=== PATIENT | female | born 1945 | race Caucasian/White ===

== ENCOUNTER 2017-09-23 12:15 | Emergency (ER) | payer MEDICARE, OTHER ==
[~2017-09-23] VITALS: Ht 167.6 cm; Wt 113.4 kg
[~2017-09-23 12:15] MED LIST: ACET500; ACETAMINOPHEN-1 EACH PO; ASCO500 PO; ASPI325 PO; ATEN50 PO; ATOR10 PO; Adult Low Dose81 MG PO; Bactrim Ds Tab1 EACH PO; CEPH500 PO; GABA100 PO; HYDCHL25 PO; IBUP800 PO; IRON150C PO; LIDO700A20 TOP; LOSA25 PO; MELATONIN10 M2 PO; MELO7.5 PO; METF500 PO; NAPR250 PO; Nitrostat0.4 MG SL; Norco 5-325 Ta1 EACH PO; OMEP20ER PO; OMEPRAZOLE MAGN20 MG PO; OXYACE5T PO; OXYC1TAB11 PO; Oxycodone-Apap1 EAC3 PO; PRAM.5 PO; PRAMIPEXOLE DIHY1 MG PO; Percocet 10-321 EACH PO; Percocet 5-3251 EACH PO; Prozac20 MG; Robaxin500 MG PO; SUCR1 PO; TRAM50 PO; UBID100 PO; VITAMIN B-125000 MCG SL; VITAMIN D35000 UNI1 PO; VITAMIN D5000 UNIT PO
[2017-10-01] MEDS ORDERED: CYAN500 (21:52)
[2018-06-19] MEDS ORDERED: ACET325 PO (10:08)
[2018-06-19] MEDS ORDERED: ALBU90OI INH (10:09)
[2018-06-19] MEDS ORDERED: LORA.5 PO (10:10)
[2018-06-19] MEDS ORDERED: Aspir 8181 MG PO (10:10)
[2018-06-19] MEDS ORDERED: ATOR80 PO (10:10)
[2018-06-19] MEDS ORDERED: NITR.4SL SL (10:12)
[2018-06-19] MEDS ORDERED: ONDA4ODT MM (10:13)
[2018-07-18] MEDS ORDERED: Norco 5-325 Ta1 EACH PO (20:01)
== END 2017-09-23 18:00 | disposition left against medical advice (07) ==
LOC: ER 12:15
DX: Z53.21 Procedure and treatment not carried out due to patient leaving prior to being seen by health care provider (principal)

== ENCOUNTER 2017-10-01 21:14 | Emergency (ER) | END 2017-10-02 00:51 | disposition home or self-care (01) ==

== ENCOUNTER 2017-11-01 15:34 | Emergency (ER) | payer MEDICARE, OTHER ==
[~2017-11-01] VITALS: Ht 167.6 cm; Wt 113.4 kg
[2017-11-01 16:40] LABS: BASOPHILS ABSOLUTE AUTO 0.02 K/mm3 (0.00-0.23); BASOPHILS PERCENT AUTO 0 % (0-2); EOSINOPHILS ABSOLUTE AUTO 0.09 K/mm3 (0.00-0.68); EOSINOPHILS PERCENT AUTO 1 % (0-6); Hematocrit 37.9 % (33.0-51.0); IMMATURE GRAN ABSOLUTE AUTO 0.03 K/mm3 (0.00-0.10); IMMATURE GRAN PERCENT AUTO 0 % (0-1); LYMPHOCYTES ABSOLUTE AUTO 1.19 K/mm3 (0.84-5.20); LYMPHOCYTES PERCENT AUTO 15 % (21-46); MONOCYTES ABSOLUTE AUTO 0.58 K/mm3 (0.16-1.47); MONOCYTES PERCENT AUTO 7 % (4-13); Mean Corpuscular HGB Conc 31.7 g/dL (31.5-36.5); Mean Corpuscular Volume 85 fL (80-100); Mean Platelet Volume 8.6 fL (9.1-12.4); NEUTROPHILS ABSOLUTE AUTO 6.23 K/mm3 (1.96-9.15); NEUTROPHILS PERCENT AUTO 77 % (41-73); Platelet Count 213 K/mm3 (150-400); RDW Coefficient Variation 14.8 % (11.7-14.2); RDW Standard Deviation 45.9 fL (35.1-46.3); Red Blood Cell Count 4.44 M/mm3 (3.80-5.20); White Blood Cell Count 8.14 K/mm3 (4.00-11.30)
[2017-11-01 16:53] LABS: International Normalized Ratio 0.98; Prothrombin Time Results 10.2 Sec (9.7-11.5)
[2017-11-01 16:59] LABS: Albumin, Blood 3.1 g/dL (3.4-5.0); Albumin/Globulin Ratio 0.8 (0.8-1.8); Bilirubin, Total 0.4 mg/dL (0.1-1.0); Bun/Creatinine Ratio 28.5 (12.0-20.0); Calcium, Blood 8.9 mg/dL (8.5-10.1); Creatinine, Blood 0.98 mg/dL (0.40-1.00); Globulin, Blood 3.7 g/dL (2.2-4.0); Potassium, Blood 4.5 mmol/L (3.5-5.5); Total Protein, Blood 6.8 g/dL (6.4-8.2)
[2018-06-19] MEDS ORDERED: ACET325 PO (10:08)
[2018-06-19] MEDS ORDERED: ALBU90OI INH (10:09)
[2018-06-19] MEDS ORDERED: Aspir 8181 MG PO (10:10)
[2018-06-19] MEDS ORDERED: ATOR80 PO (10:10)
[2018-06-19] MEDS ORDERED: LORA.5 PO (10:10)
[2018-06-19] MEDS ORDERED: NITR.4SL SL (10:12)
[2018-06-19] MEDS ORDERED: ONDA4ODT MM (10:13)
[2018-07-18] MEDS ORDERED: Norco 5-325 Ta1 EACH PO (20:01)
== END 2017-11-01 18:22 | disposition home or self-care (01) ==
LOC: ER 15:34
PROVIDERS: Emergency Medicine
DX: R51 Headache (principal); I10 Essential (primary) hypertension; E11.9 Type 2 diabetes mellitus without complications; Z88.8 Allergy status to other drugs, medicaments and biological substances; Z91.038 Other insect allergy status; Z79.84 Long term (current) use of oral hypoglycemic drugs; Z79.899 Other long term (current) drug therapy
CPT/HCPCS: 36415; 70450; 80053; 82947; 85025; 85610; 93005; 93010; 96374; 99284; J1885

== ENCOUNTER → 2017-11-01 | Outpatient (CLI) | payer MEDICARE, OTHER ==
[~2017-11-01] MED LIST changes: +CYAN500
[2017-11-01 19:15] LABS: Percent Saturation 8.5 % (15.0-50.0)
== END ==
LOC: LAB 15:30 → LAB SHORT 15:30
PROVIDERS: Internal Medicine Hematology & Oncology
DX: D50.9 Iron deficiency anemia, unspecified (principal)
CPT/HCPCS: 82728; 83540; 83550

== ENCOUNTER 2018-01-06 02:59 | Emergency (ER) | payer MEDICARE, OTHER ==
[~2018-01-06] VITALS: Ht 167.6 cm; Wt 113.4 kg
[2018-01-06] MEDS ORDERED: Prednisone20 MG PO (03:51)
[2018-01-06] MEDS ORDERED: CYCL10 PO (03:51)
[2018-01-06] MEDS ORDERED: Roxicodone5 MG PO (03:51)
== END 2018-01-06 04:30 | disposition home or self-care (01) ==
LOC: ER 02:59
DX: S16.1XXA Strain of muscle, fascia and tendon at neck level, initial encounter (principal); I10 Essential (primary) hypertension; E11.9 Type 2 diabetes mellitus without complications; Z88.8 Allergy status to other drugs, medicaments and biological substances; Z91.030 Bee allergy status; Z79.899 Other long term (current) drug therapy; Z79.84 Long term (current) use of oral hypoglycemic drugs; X58.XXXA Exposure to other specified factors, initial encounter
CPT/HCPCS: J1885; J3010

== ENCOUNTER 2018-04-29 20:51 | Emergency (ER) | payer MEDICARE, OTHER ==
[~2018-04-29] VITALS: Ht 167.6 cm; Wt 115.2 kg
[~2018-04-29 20:51] MED LIST changes: +CYCL10 PO; +Prednisone20 MG PO; +Roxicodone5 MG PO
[2018-04-29] MEDS ORDERED: PRAM.5 PO (22:48)
== END 2018-04-29 23:13 | disposition home or self-care (01) ==
LOC: ER 20:51
DX: Z76.0 Encounter for issue of repeat prescription (principal); G25.81 Restless legs syndrome; I10 Essential (primary) hypertension; E11.9 Type 2 diabetes mellitus without complications; Z88.8 Allergy status to other drugs, medicaments and biological substances; Z91.030 Bee allergy status; Z79.899 Other long term (current) drug therapy; Z79.84 Long term (current) use of oral hypoglycemic drugs
CPT/HCPCS: 99281

== ENCOUNTER 2018-07-26 10:43 | Emergency (ER) | payer MEDICARE, OTHER ==
[~2018-07-26] VITALS: Ht 167.6 cm; Wt 117.0 kg
[~2018-07-26 10:43] MED LIST changes: +ACET325 PO; +ALBU90OI INH; +ATOR80 PO; +Aspir 8181 MG PO; +LORA.5 PO; +NITR.4SL SL; +ONDA4ODT MM
[2018-07-26] MEDS ORDERED: Prozac20 MG (11:25)
[2018-07-26] MEDS ORDERED: ATOR40TA PO (11:26)
[2018-07-26] MEDS ORDERED: TRAM50 PO ×2 (11:26→12:35)
[2018-07-26] MEDS ORDERED: Amlodipine Bes2.5 MG PO (11:26)
[2018-07-26] MEDS ORDERED: LORA.5 PO (12:33)
[2018-07-26] MEDS ORDERED: PRED20 PO (12:34)
[2018-07-26] MEDS ORDERED: ONDA4ODT MM (12:34)
[2018-07-26] MEDS ORDERED: PRAM.5 PO (12:35)
== END 2018-07-26 12:42 | disposition home or self-care (01) ==
LOC: ER 10:43
DX: S09.90XA Unspecified injury of head, initial encounter (principal); S16.1XXA Strain of muscle, fascia and tendon at neck level, initial encounter; M25.511 Pain in right shoulder; I10 Essential (primary) hypertension; E11.9 Type 2 diabetes mellitus without complications; Z88.8 Allergy status to other drugs, medicaments and biological substances; Z91.030 Bee allergy status; Z79.899 Other long term (current) drug therapy; W18.30XA Fall on same level, unspecified, initial encounter
CPT/HCPCS: 70450; 72125; 73030; 99285-25; L0160

== ENCOUNTER 2018-09-26 13:40 | Emergency (ER) | payer MEDICARE, OTHER ==
[~2018-09-26] VITALS: Ht 167.6 cm; Wt 118.4 kg
[~2018-09-26 13:40] MED LIST changes: +ATOR40TA PO; +Amlodipine Bes2.5 MG PO; +PRED20 PO
[2018-09-26 14:12] LABS: BASOPHILS ABSOLUTE AUTO 0.04 K/mm3 (0.00-0.23); BASOPHILS PERCENT AUTO 1 % (0-2); EOSINOPHILS ABSOLUTE AUTO 0.12 K/mm3 (0.00-0.68); EOSINOPHILS PERCENT AUTO 2 % (0-6); Hematocrit 43.3 % (33.0-51.0); Hemoglobin 13.7 g/dL (11.5-16.0); IMMATURE GRAN ABSOLUTE AUTO 0.06 K/mm3 (0.00-0.10); IMMATURE GRAN PERCENT AUTO 1 % (0-1); LYMPHOCYTES ABSOLUTE AUTO 1.37 K/mm3 (0.84-5.20); LYMPHOCYTES PERCENT AUTO 19 % (21-46); MONOCYTES ABSOLUTE AUTO 0.36 K/mm3 (0.16-1.47); MONOCYTES PERCENT AUTO 5 % (4-13); Mean Corpuscular HGB 28.2 pg (26.0-34.0); Mean Corpuscular HGB Conc 31.6 g/dL (31.5-36.5); Mean Corpuscular Volume 89 fL (80-100); Mean Platelet Volume 8.9 fL (9.1-12.4); NEUTROPHILS ABSOLUTE AUTO 5.24 K/mm3 (1.96-9.15); NEUTROPHILS PERCENT AUTO 73 % (41-73); Platelet Count 273 K/mm3 (150-400); RDW Coefficient Variation 13.8 % (11.7-14.2); RDW Standard Deviation 44.8 fL (35.1-46.3); Red Blood Cell Count 4.86 M/mm3 (3.80-5.20); White Blood Cell Count 7.19 K/mm3 (4.00-11.30)
[2018-09-26 14:52] LABS: Alanine Aminotransfer (ALT/SGP 20 U/L (12-78); Albumin, Blood 3.7 g/dL (3.4-5.0); Alk Phos 120 U/L (50-136); Anion Gap 7 mmol/L (6-16); Aspartate Aminotrans (AST/SGOT 12 U/L (12-37); Bilirubin, Total 0.6 mg/dL (0.1-1.0); Blood Urea Nitrogen 23 mg/dL (8-24); Bun/Creatinine Ratio 21.1 (12.0-20.0); CO2, Blood 28 mmol/L (21-32); Chloride, Blood 106 mmol/L (98-108); Creatinine, Blood 1.09 mg/dL (0.40-1.00); Globulin, Blood 3.8 g/dL (2.2-4.0); Glomerular Filtration Rate 52 (60-); Glucose, Blood 162 mg/dL (70-99); Potassium, Blood 4.2 mmol/L (3.5-5.5); Sodium, Blood 141 mmol/L (136-145); Total Protein, Blood 7.5 g/dL (6.4-8.2); Troponin I <0.015 ng/mL (0.000-0.040)
== END 2018-09-26 18:55 | disposition home or self-care (01) ==
LOC: ER 13:40
PROVIDERS: Emergency Medicine
DX: R07.9 Chest pain, unspecified (principal); I10 Essential (primary) hypertension; E11.9 Type 2 diabetes mellitus without complications; Z88.8 Allergy status to other drugs, medicaments and biological substances; Z91.030 Bee allergy status; Z91.038 Other insect allergy status; Z79.899 Other long term (current) drug therapy; Z96.653 Presence of artificial knee joint, bilateral
CPT/HCPCS: 36415; 71046; 80053; 84484; 85025; 93005; 93010; 99285-25

== ENCOUNTER 2018-11-10 10:02 | Emergency (ER) | payer MEDICARE, OTHER ==
[~2018-11-10] VITALS: Ht 167.6 cm; Wt 117.5 kg
[2018-11-10 10:30] LABS: BASOPHILS ABSOLUTE AUTO 0.05 K/mm3 (0.00-0.23); BASOPHILS PERCENT AUTO 1 % (0-2); EOSINOPHILS PERCENT AUTO 2 % (0-6); Hematocrit 40.3 % (33.0-51.0); Hemoglobin 12.8 g/dL (11.5-16.0); IMMATURE GRAN PERCENT AUTO 2 % (0-1); LYMPHOCYTES PERCENT AUTO 19 % (21-46); MONOCYTES ABSOLUTE AUTO 0.44 K/mm3 (0.16-1.47); MONOCYTES PERCENT AUTO 7 % (4-13); Mean Corpuscular HGB 27.7 pg (26.0-34.0); Mean Corpuscular HGB Conc 31.8 g/dL (31.5-36.5); Mean Corpuscular Volume 87 fL (80-100); Mean Platelet Volume 9.1 fL (9.1-12.4); NEUTROPHILS ABSOLUTE AUTO 4.38 K/mm3 (1.96-9.15); NEUTROPHILS PERCENT AUTO 70 % (41-73); Platelet Count 220 K/mm3 (150-400); RDW Coefficient Variation 14.6 % (11.7-14.2); Red Blood Cell Count 4.62 M/mm3 (3.80-5.20); White Blood Cell Count 6.27 K/mm3 (4.00-11.30)
[2018-11-10] MEDS ORDERED: ERGO400 PO (10:31)
[2018-11-10] MEDS ORDERED: VITAMIN C500 M1 PO (10:32)
[2018-11-10] MEDS ORDERED: TUMS500 MG PO (10:32)
[2018-11-10 10:57] LABS: Alanine Aminotransfer (ALT/SGP 18 U/L (12-78); Albumin, Blood 3.8 g/dL (3.4-5.0); Albumin/Globulin Ratio 1.1 (0.8-1.8); Alk Phos 95 U/L (50-136); Anion Gap 6 mmol/L (6-16); Aspartate Aminotrans (AST/SGOT 8 U/L (12-37); Bilirubin, Total 0.5 mg/dL (0.1-1.0); Blood Urea Nitrogen 22 mg/dL (8-24); Bun/Creatinine Ratio 26.7 (12.0-20.0); CO2, Blood 28 mmol/L (21-32); Calcium, Blood 10.1 mg/dL (8.5-10.1); Chloride, Blood 108 mmol/L (98-108); Creatinine, Blood 0.83 mg/dL (0.40-1.00); Globulin, Blood 3.5 g/dL (2.2-4.0); Glomerular Filtration Rate >60 (60-); Glucose, Blood 134 mg/dL (70-99); Potassium, Blood 4.2 mmol/L (3.5-5.5); Sodium, Blood 142 mmol/L (136-145); Total Protein, Blood 7.3 g/dL (6.4-8.2); Troponin I <0.015 ng/mL (0.000-0.040)
== END 2018-11-10 11:40 | disposition home or self-care (01) ==
LOC: ER 10:02
PROVIDERS: Emergency Medicine
DX: R07.89 Other chest pain (principal); Z88.8 Allergy status to other drugs, medicaments and biological substances; Z91.030 Bee allergy status; Z79.899 Other long term (current) drug therapy; Z87.891 Personal history of nicotine dependence; Z79.52 Long term (current) use of systemic steroids; I10 Essential (primary) hypertension; E11.9 Type 2 diabetes mellitus without complications
CPT/HCPCS: 36415; 71046; 80053; 83880; 84484; 85025; 93005; 93010; 99285-25

== ENCOUNTER 2018-12-13 10:16 | Day surgery (SDC) | payer MEDICARE, OTHER ==
[~2018-12-13] VITALS: Ht 170.2 cm; Wt 117.7 kg
[~2018-12-13 10:16] MED LIST changes: +ERGO400 PO; +FLUOXETINE HCL60 MG PO; +TUMS500 MG PO; +VITAMIN C500 M1 PO
--- NOTE | 2018-12-13 13:21 | NUR ---
PT RETURN TO RECOVERY APPROX 10-15 MINUTES AGO. AWAKE, ALERT, CONVERSING WITH STAFF. NO SEDATION RECEIVED. PT DENIES PAIN OR DISCOMFORT. TR BAND IN PLACE TO RIGHT WRIST. CMS INTACT TO RIGHT HAND. NO BLEEDING OR SWELLING NOTED. PT CURRENTLY EATING LUNCH. AT BEDSIDE.
--- NOTE | 2018-12-13 13:59 | NUR ---
PT AMBULATED TO BATHROOM AND BACK WITHOUT DIFFICULTY. STEADY ON FEET. TR BAND REMAINS IN PLACE TO RIGHT WRIST. CMS INTACT TO HAND. NO BLEEDING/SWELLING NOTED.
--- NOTE | 2018-12-13 15:03 | NUR ---
ATTEMPTED TO DEFLATE TR BAND AT 2 HOUR ASAEL PER ORDERS. PT HAD IMMEDIATE BLEEDING. REINFLATED TO HEMOSTASIS. CMS INTACT TO HAND. WILL HOLD ON DEFLATION AT THIS TIME.
--- NOTE | 2018-12-13 15:48 | NUR ---
PT DRESSING AT THIS TIME. TR BAND REMAINS INFLATED AND IN PLACE FOR SECURITY. PT HAS AMBULATED AROUND DEPARTMENT WITHOUT DIFFICULTY. EATING/DRINKING WITHOUT DIFFICULTY. REVIEWED DISCHARGE INSTRUCTIONS WITH PATIENT AND - BOTH OF WHOM ARE ABLE TO REPEAT BACK PERTINENT POINTS AND VERBALIZE UNDERSTANDING. AWAITING 1600 TO ATTEMPT TR BAND DEFLATION ONCE MORE.
--- NOTE | 2018-12-14 10:23 | NUR ---
LATE ENTRY: TR BAND WAS DEFLATED SUCCESSFULLY PER POLICY STARTING AT 1600 ON 12/13/2018. NO FURTHER BLEEDING OR SWELLING WERE NOTED. CMS TO HAND REMAINED INTACT AND WNL. DOT DRESSING APPLIED AND ARM BOARD REPLACED FOR SECURITY. CMS REMAINED UNCHANGED. PT'S PRESENT TO DRIVE HER HOME. IV D/C TIP INTACT AND PATIENT DC HOME AT APPROX 1645.
== END 2018-12-13 18:00 | disposition home or self-care (01) ==
LOC: MHTC 10:16
DX: R07.89 Other chest pain (principal); R94.30 Abnormal result of cardiovascular function study, unspecified; R10.11 Right upper quadrant pain; I25.10 Atherosclerotic heart disease of native coronary artery without angina pectoris; Z88.8 Allergy status to other drugs, medicaments and biological substances; Z79.899 Other long term (current) drug therapy
CPT/HCPCS: 93454; C1769; C1894; J1644; J2250; J3010; J7030; Q9967

== ENCOUNTER 2019-01-31 19:32 | Emergency (ER) | payer MEDICARE, OTHER ==
[~2019-01-31] VITALS: Ht 167.6 cm; Wt 117.9 kg
[~2019-01-31 19:32] MED LIST changes: -CYAN500; +CYAN500 PO; -OMEPRAZOLE MAGN20 MG PO; +OMEPRAZOLE20 MG PO
[2019-01-31 19:47] LABS: BASOPHILS ABSOLUTE AUTO 0.02 K/mm3 (0.00-0.23); BASOPHILS PERCENT AUTO 0 % (0-2); EOSINOPHILS ABSOLUTE AUTO 0.01 K/mm3 (0.00-0.68); EOSINOPHILS PERCENT AUTO 0 % (0-6); Hematocrit 37.1 % (33.0-51.0); Hemoglobin 11.6 g/dL (11.5-16.0); IMMATURE GRAN ABSOLUTE AUTO 0.36 K/mm3 (0.00-0.10); IMMATURE GRAN PERCENT AUTO 3 % (0-1); LYMPHOCYTES ABSOLUTE AUTO 0.46 K/mm3 (0.84-5.20); LYMPHOCYTES PERCENT AUTO 4 % (21-46); MONOCYTES ABSOLUTE AUTO 0.18 K/mm3 (0.16-1.47); MONOCYTES PERCENT AUTO 2 % (4-13); Mean Corpuscular HGB 28.2 pg (26.0-34.0); Mean Corpuscular HGB Conc 31.3 g/dL (31.5-36.5); Mean Corpuscular Volume 90 fL (80-100); Mean Platelet Volume 8.9 fL (9.1-12.4); NEUTROPHILS ABSOLUTE AUTO 10.04 K/mm3 (1.96-9.15); NEUTROPHILS PERCENT AUTO 91 % (41-73); Platelet Count 199 K/mm3 (150-400); RDW Coefficient Variation 15.2 % (11.7-14.2); RDW Standard Deviation 50.5 fL (35.1-46.3); Red Blood Cell Count 4.11 M/mm3 (3.80-5.20); White Blood Cell Count 11.07 K/mm3 (4.00-11.30)
[2019-01-31] MEDS ORDERED: TRAZ100 PO (19:57)
[2019-01-31 20:09] LABS: Alanine Aminotransfer (ALT/SGP 26 U/L (12-78); Albumin, Blood 3.3 g/dL (3.4-5.0); Albumin/Globulin Ratio 1.1 (0.8-1.8); Alk Phos 118 U/L (50-136); Anion Gap 10 mmol/L (6-16); Aspartate Aminotrans (AST/SGOT 13 U/L (12-37); Bilirubin, Total 0.3 mg/dL (0.1-1.0); Blood Urea Nitrogen 34 mg/dL (8-24); Bun/Creatinine Ratio 34.1 (12.0-20.0); CO2, Blood 23 mmol/L (21-32); Calcium, Blood 8.8 mg/dL (8.5-10.1); Chloride, Blood 105 mmol/L (98-108); Glomerular Filtration Rate 58 (60-); Glucose, Blood 353 mg/dL (70-99); Potassium, Blood 4.5 mmol/L (3.5-5.5); Sodium, Blood 138 mmol/L (136-145); Total Protein, Blood 6.3 g/dL (6.4-8.2); Troponin I <0.015 ng/mL (0.000-0.040)
[2019-01-31] MEDS ORDERED: Percocet 5-3251 EACH PO (20:42)
[2019-01-31] MEDS ORDERED: Xanax0.25 MG PO (20:42)
== END 2019-01-31 20:58 | disposition home or self-care (01) ==
LOC: ER 19:32
PROVIDERS: Emergency Medicine
DX: R06.02 Shortness of breath (principal); T38.0X5A Adverse effect of glucocorticoids and synthetic analogues, initial encounter; E11.65 Type 2 diabetes mellitus with hyperglycemia; F41.9 Anxiety disorder, unspecified; F43.9 Reaction to severe stress, unspecified; I10 Essential (primary) hypertension; K21.9 Gastro-esophageal reflux disease without esophagitis
CPT/HCPCS: 71045; 80053; 82947; 83880; 84484; 85025; 85379; 93005; 93010; 96374; 99284-25; A9270; J2060

== ENCOUNTER 2019-03-11 15:50 | Emergency (ER) | payer MEDICARE, OTHER ==
[~2019-03-11] VITALS: Ht 167.6 cm; Wt 117.9 kg
[~2019-03-11 15:50] MED LIST changes: +TRAZ100 PO; +Xanax0.25 MG PO
[2019-03-11 16:43] LABS: BASOPHILS ABSOLUTE AUTO 0.03 K/mm3 (0.00-0.23); BASOPHILS PERCENT AUTO 1 % (0-2); EOSINOPHILS ABSOLUTE AUTO 0.14 K/mm3 (0.00-0.68); EOSINOPHILS PERCENT AUTO 2 % (0-6); Hematocrit 37.2 % (33.0-51.0); Hemoglobin 11.5 g/dL (11.5-16.0); IMMATURE GRAN ABSOLUTE AUTO 0.13 K/mm3 (0.00-0.10); IMMATURE GRAN PERCENT AUTO 2 % (0-1); LYMPHOCYTES ABSOLUTE AUTO 0.91 K/mm3 (0.84-5.20); LYMPHOCYTES PERCENT AUTO 15 % (21-46); MONOCYTES ABSOLUTE AUTO 0.48 K/mm3 (0.16-1.47); MONOCYTES PERCENT AUTO 8 % (4-13); Mean Corpuscular HGB 29.1 pg (26.0-34.0); Mean Corpuscular HGB Conc 30.9 g/dL (31.5-36.5); Mean Corpuscular Volume 94 fL (80-100); NEUTROPHILS ABSOLUTE AUTO 4.49 K/mm3 (1.96-9.15); NEUTROPHILS PERCENT AUTO 73 % (41-73); Platelet Count 192 K/mm3 (150-400); RDW Coefficient Variation 14.3 % (11.7-14.2); RDW Standard Deviation 49.3 fL (35.1-46.3); Red Blood Cell Count 3.95 M/mm3 (3.80-5.20); White Blood Cell Count 6.18 K/mm3 (4.00-11.30)
[2019-03-11 17:00] LABS: Albumin, Blood 3.2 g/dL (3.4-5.0); Bilirubin, Total 0.4 mg/dL (0.1-1.0); Bun/Creatinine Ratio 22.8 (12.0-20.0); Creatinine, Blood 1.27 mg/dL (0.40-1.00); Globulin, Blood 3.3 g/dL (2.2-4.0); Potassium, Blood 4.2 mmol/L (3.5-5.5); Total Protein, Blood 6.5 g/dL (6.4-8.2)
[2019-03-11] MEDS ORDERED: ATHLETE'S FOO35.4 GM TOP (17:19)
[2019-03-11] MEDS ORDERED: CEPH500 PO (17:19)
== END 2019-03-11 18:15 | disposition home or self-care (01) ==
LOC: ER 15:50
PROVIDERS: Physician Assistant
DX: B35.3 Tinea pedis (principal); Z88.8 Allergy status to other drugs, medicaments and biological substances; Z91.013 Allergy to seafood; Z79.899 Other long term (current) drug therapy; Z79.891 Long term (current) use of opiate analgesic; I10 Essential (primary) hypertension; E11.9 Type 2 diabetes mellitus without complications
CPT/HCPCS: 36415; 73630; 80053; 85025; 99283-25

== ENCOUNTER 2019-04-03 17:57 | Emergency (ER) | payer MEDICARE, OTHER ==
[~2019-04-03] VITALS: Ht 167.6 cm; Wt 118.4 kg
[~2019-04-03 17:57] MED LIST changes: +ATHLETE'S FOO35.4 GM TOP
[2019-04-03 18:34] LABS: BASOPHILS ABSOLUTE AUTO 0.04 K/mm3 (0.00-0.23); BASOPHILS PERCENT AUTO 1 % (0-2); EOSINOPHILS ABSOLUTE AUTO 0.14 K/mm3 (0.00-0.68); EOSINOPHILS PERCENT AUTO 2 % (0-6); Hematocrit 34.5 % (33.0-51.0); IMMATURE GRAN ABSOLUTE AUTO 0.14 K/mm3 (0.00-0.10); IMMATURE GRAN PERCENT AUTO 2 % (0-1); LYMPHOCYTES PERCENT AUTO 21 % (21-46); MONOCYTES ABSOLUTE AUTO 0.35 K/mm3 (0.16-1.47); MONOCYTES PERCENT AUTO 5 % (4-13); Mean Corpuscular HGB 28.7 pg (26.0-34.0); Mean Corpuscular HGB Conc 31.9 g/dL (31.5-36.5); Mean Corpuscular Volume 90 fL (80-100); NEUTROPHILS ABSOLUTE AUTO 4.66 K/mm3 (1.96-9.15); NEUTROPHILS PERCENT AUTO 69 % (41-73); Platelet Count 234 K/mm3 (150-400); RDW Standard Deviation 45.7 fL (35.1-46.3); Red Blood Cell Count 3.83 M/mm3 (3.80-5.20); White Blood Cell Count 6.73 K/mm3 (4.00-11.30)
[2019-04-03] MEDS ORDERED: ASPI325 PO (18:34)
[2019-04-03 18:45] LABS: Alanine Aminotransfer (ALT/SGP 18 U/L (12-78); Albumin, Blood 3.3 g/dL (3.4-5.0); Alk Phos 78 U/L (50-136); Anion Gap 5 mmol/L (6-16); Aspartate Aminotrans (AST/SGOT 13 U/L (12-37); Bilirubin, Total 0.3 mg/dL (0.1-1.0); Blood Urea Nitrogen 25 mg/dL (8-24); Bun/Creatinine Ratio 27.7 (12.0-20.0); CO2, Blood 29 mmol/L (21-32); Calcium, Blood 9.1 mg/dL (8.5-10.1); Chloride, Blood 107 mmol/L (98-108); Globulin, Blood 3.3 g/dL (2.2-4.0); Glomerular Filtration Rate >60 (60-); Glucose, Blood 206 mg/dL (70-99); Potassium, Blood 3.5 mmol/L (3.5-5.5); Sodium, Blood 141 mmol/L (136-145); Total Protein, Blood 6.6 g/dL (6.4-8.2); Troponin I <0.015 ng/mL (0.000-0.040)
== END 2019-04-03 22:14 | disposition home or self-care (01) ==
LOC: ER 17:57
PROVIDERS: Physician Assistant
DX: R25.1 Tremor, unspecified (principal); M79.601 Pain in right arm; M79.602 Pain in left arm; E11.9 Type 2 diabetes mellitus without complications; Z88.8 Allergy status to other drugs, medicaments and biological substances; Z91.030 Bee allergy status; Z79.899 Other long term (current) drug therapy; Z79.891 Long term (current) use of opiate analgesic; Z79.82 Long term (current) use of aspirin; I10 Essential (primary) hypertension
CPT/HCPCS: 71046; 80053; 82947; 84484; 85025; 93005; 93010; 96374; 99284-25; J1885

== ENCOUNTER 2019-05-01 15:48 | Observation (INO) | payer MEDICARE, OTHER ==
[~2019-05-01] VITALS: Ht 167.6 cm; Wt 119.9 kg
[2019-05-01 17:19] LABS: BASOPHILS ABSOLUTE AUTO 0.04 K/mm3 (0.00-0.23); BASOPHILS PERCENT AUTO 1 % (0-2); EOSINOPHILS ABSOLUTE AUTO 0.13 K/mm3 (0.00-0.68); EOSINOPHILS PERCENT AUTO 2 % (0-6); Hematocrit 38.8 % (33.0-51.0); Hemoglobin 12.2 g/dL (11.5-16.0); IMMATURE GRAN ABSOLUTE AUTO 0.08 K/mm3 (0.00-0.10); IMMATURE GRAN PERCENT AUTO 1 % (0-1); LYMPHOCYTES ABSOLUTE AUTO 1.23 K/mm3 (0.84-5.20); LYMPHOCYTES PERCENT AUTO 17 % (21-46); MONOCYTES ABSOLUTE AUTO 0.39 K/mm3 (0.16-1.47); MONOCYTES PERCENT AUTO 6 % (4-13); Mean Corpuscular HGB 28.8 pg (26.0-34.0); Mean Corpuscular HGB Conc 31.4 g/dL (31.5-36.5); Mean Corpuscular Volume 92 fL (80-100); Mean Platelet Volume 8.8 fL (9.1-12.4); NEUTROPHILS ABSOLUTE AUTO 5.23 K/mm3 (1.96-9.15); NEUTROPHILS PERCENT AUTO 74 % (41-73); Platelet Count 263 K/mm3 (150-400); RDW Coefficient Variation 13.9 % (11.7-14.2); RDW Standard Deviation 46.5 fL (35.1-46.3); Red Blood Cell Count 4.23 M/mm3 (3.80-5.20)
[2019-05-01 17:53] LABS: Albumin, Blood 3.7 g/dL (3.4-5.0); Bilirubin, Total 0.3 mg/dL (0.1-1.0); Bun/Creatinine Ratio 22.8 (12.0-20.0); Calcium, Blood 9.3 mg/dL (8.5-10.1); Creatinine, Blood 1.01 mg/dL (0.40-1.00); Globulin, Blood 3.6 g/dL (2.2-4.0); Potassium, Blood 3.8 mmol/L (3.5-5.5); Total Protein, Blood 7.3 g/dL (6.4-8.2)
[2019-05-01] MEDS ORDERED: VITAMIN D5000 UNI1 PO (20:28)
[2019-05-01] MEDS ORDERED: LOSA50 PO (20:28)
[2019-05-01] MEDS ORDERED: BASAGLAR K100 UNIT/1 SC (20:33)
[2019-05-01] MEDS ORDERED: HYDCHL25 PO (20:33)
[2019-05-01] MEDS ORDERED: Mirapex1 MG PO (20:34)
[2019-05-01] MEDS ORDERED: ASCO500 PO (20:34)
[2019-05-02 02:53] LABS: Source, Urine Clean Catch
[2019-05-02 02:55] LABS: Bilirubin, Urine Neg (Neg); Blood, Urine Neg (Neg); Glucose Qualitative, Urine Neg (Neg); Ketones, Urine Neg (Neg); Leukocyte Esterase, Urine Neg (Neg); Nitrite, Urine Neg (Neg); Protein, Urine Neg (Neg); Specific Gravity, Urine 1.015 (1.003-1.022); Urobilinogen, Urine NORM (Normal)
[2019-05-02 03:03] LABS: Appearance, Urine Clear (Clear); Color, Urine Yellow (P-Yellow)
--- NOTE | 2019-05-02 05:06 | NUR ---
SHIFT SUMMARY: Admitted to medical floor at about 2255. T/F from w/c to bed with SBA. Pt reached down to grab right pant leg to manually adduct righ LE during t/f. A/O. BP initially 172/74. 137/59 upon recheck. C/O GUADALUPE 04/17. PRN tylenol order obtained and administered with little improvement in GUADALUPE. Pt slept intermittently during the night stating that her GUADALUPE was keeping her awake. She refused offers for non-analgesic pain relief. Stated pain was tolerable enough to wait until AM to pursue additional pain management. Slight tremoring observed in bilateral hands. Neuro check WNL. MRI screening form completed and faxed. UA collected and sent to lab. Tele monitor in place- NSR. Call light within reach.
[2019-05-02 05:56] LABS: Hematocrit 35.7 % (33.0-51.0); Hemoglobin 11.1 g/dL (11.5-16.0); Mean Corpuscular HGB 27.8 pg (26.0-34.0); Mean Corpuscular HGB Conc 31.1 g/dL (31.5-36.5); Mean Corpuscular Volume 90 fL (80-100); Platelet Count 236 K/mm3 (150-400); RDW Coefficient Variation 13.8 % (11.7-14.2); RDW Standard Deviation 45.3 fL (35.1-46.3); Red Blood Cell Count 3.99 M/mm3 (3.80-5.20); White Blood Cell Count 7.14 K/mm3 (4.00-11.30)
[2019-05-02 06:15] LABS: Albumin, Blood 3.1 g/dL (3.4-5.0); Albumin/Globulin Ratio 0.9 (0.8-1.8); Bilirubin, Total 0.3 mg/dL (0.1-1.0); Bun/Creatinine Ratio 24.3 (12.0-20.0); Calcium, Blood 8.9 mg/dL (8.5-10.1); Creatinine, Blood 0.99 mg/dL (0.40-1.00); Globulin, Blood 3.4 g/dL (2.2-4.0); Potassium, Blood 3.8 mmol/L (3.5-5.5); Total Protein, Blood 6.5 g/dL (6.4-8.2)
--- NOTE | 2019-05-02 10:19 | NUR ---
ECHOCARDIOGRAM COMPLETED
[2019-05-02] MEDS ORDERED: ATOR80 PO (17:48)
[2019-05-02] MEDS ORDERED: CLOP75 PO (17:49)
--- NOTE | 2019-05-02 18:27 | NUR ---
DISCHARGE DISCHARGE MEDICATIONS AND INSTRUCTIONS EXPLAINED TO PATIENT AND PATIENT'S . THEY STATED UNDERSTANDING. FOLLOW UP APPOINTMENTS WITH PCP, DR. SARGENT, AND OT/PT TO BE SCHEDULED BY CARE MANAGEMENT AND CALLED TO PATIENT AT HOME. IV REMOVED WITHOUT DIFFICULTY. BELONGINGS WITH PATIENT. PATIENT TRANSFERED TO PRIVATE VEHICLE VIA WHEELCHAIR.
== END 2019-05-02 18:25 | disposition home or self-care (01) ==
LOC: ER 15:48 → MEDS 15:49 → ER 21:41 → MEDS 21:41 → ENPENDDIS 05-02 16:55 → MEDS 05-02 18:25
PROVIDERS: Physician Assistant; ADMIT Internal Medicine
DX: R29.898 Other symptoms and signs involving the musculoskeletal system (principal); R51 Headache; G25.81 Restless legs syndrome; I25.10 Atherosclerotic heart disease of native coronary artery without angina pectoris; I10 Essential (primary) hypertension; E11.9 Type 2 diabetes mellitus without complications; K21.9 Gastro-esophageal reflux disease without esophagitis; F32.9 Major depressive disorder, single episode, unspecified; E66.9 Obesity, unspecified; Z68.41 Body mass index [BMI] 40.0-44.9, adult; Z79.899 Other long term (current) drug therapy; Z79.82 Long term (current) use of aspirin; Z79.4 Long term (current) use of insulin; Z91.038 Other insect allergy status; Z88.8 Allergy status to other drugs, medicaments and biological substances; Z86.73 Personal history of transient ischemic attack (TIA), and cerebral infarction without residual deficits
CPT/HCPCS: 36415; 70450; 70551; 71045; 80053; 81003; 82947; 85025; 85027; 93005; 93010; 93306; 93880; 96372; 96374; 97162; 97165; 97530; 99285-25; A9270; G0378; J1650; J2060; J7030

== ENCOUNTER 2019-05-12 10:09 | Emergency (ER) | payer MEDICARE, OTHER ==
[~2019-05-12] VITALS: Ht 167.6 cm; Wt 117.9 kg
[~2019-05-12 10:09] MED LIST changes: +BASAGLAR K100 UNIT/1 SC; +CLOP75 PO; +LOSA50 PO; +Mirapex1 MG PO; +VITAMIN D5000 UNI1 PO
[2019-05-12 10:26] LABS: BASOPHILS ABSOLUTE AUTO 0.04 K/mm3 (0.00-0.23); BASOPHILS PERCENT AUTO 1 % (0-2); EOSINOPHILS ABSOLUTE AUTO 0.13 K/mm3 (0.00-0.68); EOSINOPHILS PERCENT AUTO 2 % (0-6); Hematocrit 37.2 % (33.0-51.0); Hemoglobin 11.9 g/dL (11.5-16.0); IMMATURE GRAN ABSOLUTE AUTO 0.06 K/mm3 (0.00-0.10); IMMATURE GRAN PERCENT AUTO 1 % (0-1); LYMPHOCYTES ABSOLUTE AUTO 1.13 K/mm3 (0.84-5.20); LYMPHOCYTES PERCENT AUTO 19 % (21-46); MONOCYTES PERCENT AUTO 7 % (4-13); Mean Corpuscular HGB 28.2 pg (26.0-34.0); Mean Corpuscular Volume 88 fL (80-100); Mean Platelet Volume 8.7 fL (9.1-12.4); NEUTROPHILS ABSOLUTE AUTO 4.34 K/mm3 (1.96-9.15); NEUTROPHILS PERCENT AUTO 71 % (41-73); Platelet Count 229 K/mm3 (150-400); RDW Coefficient Variation 13.8 % (11.7-14.2); RDW Standard Deviation 44.9 fL (35.1-46.3); Red Blood Cell Count 4.22 M/mm3 (3.80-5.20)
[2019-05-12] MEDS ORDERED: ACET500 PO (10:48)
[2019-05-12] MEDS ORDERED: METO50ER PO (10:51)
[2019-05-12 10:53] LABS: Albumin, Blood 3.6 g/dL (3.4-5.0); Bilirubin, Total 0.4 mg/dL (0.1-1.0); Bun/Creatinine Ratio 27.1 (12.0-20.0); Calcium, Blood 9.4 mg/dL (8.5-10.1); Creatinine, Blood 1.07 mg/dL (0.40-1.00); Globulin, Blood 3.5 g/dL (2.2-4.0); Potassium, Blood 4.1 mmol/L (3.5-5.5); Total Protein, Blood 7.1 g/dL (6.4-8.2)
== END 2019-05-12 11:56 | disposition home or self-care (01) ==
LOC: ER 10:09
PROVIDERS: Emergency Medicine
DX: R25.1 Tremor, unspecified (principal); I10 Essential (primary) hypertension; E11.9 Type 2 diabetes mellitus without complications; Z88.8 Allergy status to other drugs, medicaments and biological substances; Z91.030 Bee allergy status; Z79.899 Other long term (current) drug therapy; Z79.891 Long term (current) use of opiate analgesic; Z79.4 Long term (current) use of insulin; Z79.02 Long term (current) use of antithrombotics/antiplatelets
CPT/HCPCS: 70450; 80053; 85025; 93005; 93010; 96374; 99284-25; J2060

== ENCOUNTER 2019-08-09 13:23 | Emergency (ER) | payer MEDICARE, OTHER ==
[~2019-08-09] VITALS: Ht 167.6 cm; Wt 117.9 kg
[~2019-08-09 13:23] MED LIST changes: +ACET500 PO; +METO50ER PO
[2019-08-09 15:19] LABS: BASOPHILS ABSOLUTE AUTO 0.04 K/mm3 (0.00-0.23); BASOPHILS PERCENT AUTO 1 % (0-2); EOSINOPHILS ABSOLUTE AUTO 0.12 K/mm3 (0.00-0.68); EOSINOPHILS PERCENT AUTO 2 % (0-6); Hematocrit 37.7 % (33.0-51.0); Hemoglobin 11.9 g/dL (11.5-16.0); IMMATURE GRAN ABSOLUTE AUTO 0.04 K/mm3 (0.00-0.10); IMMATURE GRAN PERCENT AUTO 1 % (0-1); LYMPHOCYTES ABSOLUTE AUTO 1.13 K/mm3 (0.84-5.20); LYMPHOCYTES PERCENT AUTO 20 % (21-46); MONOCYTES ABSOLUTE AUTO 0.36 K/mm3 (0.16-1.47); MONOCYTES PERCENT AUTO 6 % (4-13); Mean Corpuscular HGB 27.5 pg (26.0-34.0); Mean Corpuscular HGB Conc 31.6 g/dL (31.5-36.5); Mean Corpuscular Volume 87 fL (80-100); Mean Platelet Volume 8.9 fL (9.1-12.4); NEUTROPHILS ABSOLUTE AUTO 4.04 K/mm3 (1.96-9.15); NEUTROPHILS PERCENT AUTO 71 % (41-73); Platelet Count 229 K/mm3 (150-400); RDW Coefficient Variation 14.6 % (11.7-14.2); RDW Standard Deviation 46.5 fL (35.1-46.3); Red Blood Cell Count 4.32 M/mm3 (3.80-5.20); White Blood Cell Count 5.73 K/mm3 (4.00-11.30)
[2019-08-09 15:52] LABS: Albumin, Blood 3.4 g/dL (3.4-5.0); Bilirubin, Total 0.3 mg/dL (0.1-1.0); Bun/Creatinine Ratio 30.3 (12.0-20.0); Calcium, Blood 9.2 mg/dL (8.5-10.1); Creatinine, Blood 1.09 mg/dL (0.40-1.00); Globulin, Blood 3.3 g/dL (2.2-4.0); Potassium, Blood 4.1 mmol/L (3.5-5.5); Total Protein, Blood 6.7 g/dL (6.4-8.2)
== END 2019-08-09 17:18 | disposition home or self-care (01) ==
LOC: ER 13:23
PROVIDERS: Physician Assistant
DX: R51 Headache (principal); I10 Essential (primary) hypertension; E11.9 Type 2 diabetes mellitus without complications; Z88.8 Allergy status to other drugs, medicaments and biological substances; Z91.030 Bee allergy status; Z79.4 Long term (current) use of insulin; Z79.899 Other long term (current) drug therapy
CPT/HCPCS: 36415; 70450; 72125; 80053; 85025; 96374; 96375; 99284-25; A9270-GY; J1170; J2405

== ENCOUNTER 2019-10-10 18:32 | Emergency (ER) | payer MEDICARE, OTHER ==
[~2019-10-10] VITALS: Ht 167.6 cm; Wt 120.2 kg
== END 2019-10-10 20:58 | disposition home or self-care (01) ==
LOC: ER 18:32
DX: S00.03XA Contusion of scalp, initial encounter (principal); I10 Essential (primary) hypertension; E11.9 Type 2 diabetes mellitus without complications; Z88.8 Allergy status to other drugs, medicaments and biological substances; Z91.030 Bee allergy status; Z79.899 Other long term (current) drug therapy; Z79.4 Long term (current) use of insulin; W01.0XXA Fall on same level from slipping, tripping and stumbling without subsequent striking against object, initial encounter
CPT/HCPCS: 70450; 72125; 93005; 93010; 99284-25; L0160

== ENCOUNTER 2019-10-12 05:11 | Emergency (ER) | payer MEDICARE, OTHER ==
[~2019-10-12] VITALS: Ht 167.6 cm; Wt 120.2 kg
[2019-10-12] MEDS ORDERED: Percocet 5-3251 EACH PO (06:12)
== END 2019-10-12 06:20 | disposition home or self-care (01) ==
LOC: ER 05:11
DX: M25.532 Pain in left wrist (principal); I10 Essential (primary) hypertension; E11.9 Type 2 diabetes mellitus without complications; W18.30XA Fall on same level, unspecified, initial encounter
CPT/HCPCS: 73110; 99283-25

== ENCOUNTER 2020-01-02 09:57 | Emergency (ER) | payer MEDICARE, OTHER ==
[~2020-01-02] VITALS: Ht 167.6 cm; Wt 119.8 kg
[~2020-01-02 09:57] MED LIST changes: +ASPI81CH PO; +EZETIMIBE10 MG PO; -FLUOXETINE HCL60 MG PO; +Inderal 20 mg T20 MG PO; +LOSARTAN POTAS100 M1 PO; +Prozac20 MG PO
[2020-01-02] MEDS ORDERED: Norco 5-325 Ta1 EACH PO (13:15)
== END 2020-01-02 13:57 | disposition home or self-care (01) ==
LOC: ER 09:57
DX: M25.461 Effusion, right knee (principal); M25.551 Pain in right hip; I10 Essential (primary) hypertension; E11.9 Type 2 diabetes mellitus without complications; F32.9 Major depressive disorder, single episode, unspecified; K21.9 Gastro-esophageal reflux disease without esophagitis; Z88.8 Allergy status to other drugs, medicaments and biological substances; Z91.030 Bee allergy status; Z79.899 Other long term (current) drug therapy; Z79.4 Long term (current) use of insulin; Z79.02 Long term (current) use of antithrombotics/antiplatelets; Z79.82 Long term (current) use of aspirin; Z86.73 Personal history of transient ischemic attack (TIA), and cerebral infarction without residual deficits; W18.30XA Fall on same level, unspecified, initial encounter; Y92.096 Garden or yard of other non-institutional residence as the place of occurrence of the external cause
CPT/HCPCS: 73502; 73562-RT; 99284-25; A9270-GY

== ENCOUNTER 2020-06-13 17:45 | Emergency (ER) | payer MEDICARE, OTHER ==
[~2020-06-13 17:45] MED LIST changes: -ASPI81CH PO; +Aspirin EC81 MG PO; +EZET10 PO; -EZETIMIBE10 MG PO; +METO25ER PO
== END 2020-06-13 18:48 | disposition left against medical advice (07) ==
LOC: ER 17:45
DX: R05 Cough (principal); Z53.21 Procedure and treatment not carried out due to patient leaving prior to being seen by health care provider; Z79.82 Long term (current) use of aspirin; Z79.02 Long term (current) use of antithrombotics/antiplatelets; Z79.4 Long term (current) use of insulin; Z79.899 Other long term (current) drug therapy
CPT/HCPCS: 99282

== ENCOUNTER 2020-06-24 22:31 | Emergency (ER) | payer MEDICARE, OTHER ==
[~2020-06-24] VITALS: Ht 167.6 cm; Wt 122.5 kg
[2020-06-24 23:30] LABS: BASOPHILS ABSOLUTE AUTO 0.04 K/mm3 (0.00-0.23); BASOPHILS PERCENT AUTO 1 % (0-2); EOSINOPHILS ABSOLUTE AUTO 0.23 K/mm3 (0.00-0.68); EOSINOPHILS PERCENT AUTO 3 % (0-6); Hematocrit 35.2 % (33.0-51.0); Hemoglobin 11.3 g/dL (11.5-16.0); IMMATURE GRAN ABSOLUTE AUTO 0.11 K/mm3 (0.00-0.10); IMMATURE GRAN PERCENT AUTO 2 % (0-1); LYMPHOCYTES PERCENT AUTO 18 % (21-46); MONOCYTES ABSOLUTE AUTO 0.57 K/mm3 (0.16-1.47); MONOCYTES PERCENT AUTO 8 % (4-13); Mean Corpuscular HGB 28.4 pg (26.0-34.0); Mean Corpuscular HGB Conc 32.1 g/dL (31.5-36.5); Mean Corpuscular Volume 88 fL (80-100); Mean Platelet Volume 8.7 fL (9.1-12.4); NEUTROPHILS PERCENT AUTO 69 % (41-73); Platelet Count 219 K/mm3 (150-400); RDW Coefficient Variation 14.9 % (11.7-14.2); Red Blood Cell Count 3.98 M/mm3 (3.80-5.20); White Blood Cell Count 7.25 K/mm3 (4.00-11.30)
[2020-06-24 23:48] LABS: Alanine Aminotransfer (ALT/SGP 19 U/L (12-78); Albumin/Globulin Ratio 0.9 (0.8-1.8); Alk Phos 94 U/L (50-136); Anion Gap 5 mmol/L (6-16); Aspartate Aminotrans (AST/SGOT 11 U/L (12-37); Bilirubin, Total 0.3 mg/dL (0.1-1.0); Blood Urea Nitrogen 24 mg/dL (8-24); Bun/Creatinine Ratio 25.1 (12.0-20.0); CO2, Blood 29 mmol/L (21-32); Calcium, Blood 8.9 mg/dL (8.5-10.1); Chloride, Blood 109 mmol/L (98-108); Creatinine, Blood 0.96 mg/dL (0.40-1.00); Globulin, Blood 3.4 g/dL (2.2-4.0); Glomerular Filtration Rate >60 (60-); Glucose, Blood 164 mg/dL (70-99); Potassium, Blood 4.2 mmol/L (3.5-5.5); Sodium, Blood 143 mmol/L (136-145); Total Protein, Blood 6.4 g/dL (6.4-8.2); Troponin I <0.015 ng/mL (0.000-0.040)
[2020-06-25 01:30] LABS: Adenovirus Not Detected (NOT DETECT); Bordetella pertussis Not Detected (NOT DETECT); Chlamydophila pneumoniae Not Detected (NOT DETECT); Coronavirus 229E Not Detected (NOT DETECT); Coronavirus HKU1 Not Detected (NOT DETECT); Coronavirus NL63 Not Detected (NOT DETECT); Coronavirus OC43 Not Detected (NOT DETECT); Human Metapneumovirus Not Detected (NOT DETECT); Human Rhinovirus/Enterovirus Not Detected (NOT DETECT); Influenza A/2009-H1 Not Detected (NOT DETECT); Influenza A/H1 Not Detected (NOT DETECT); Influenza A/H3 Not Detected (NOT DETECT); Influenza B Not Detected (NOT DETECT); Mycoplasma pneumoniae Not Detected (NOT DETECT); Parainfluenza Virus 1 Not Detected (NOT DETECT); Parainfluenza Virus 2 Not Detected (NOT DETECT); Parainfluenza Virus 3 Not Detected (NOT DETECT); Parainfluenza Virus 4 Not Detected (NOT DETECT); Respiratory Syncytial Virus Not Detected (NOT DETECT); SARS-Cov-2 (COVID-19), BioFire Not Detected (NOT DETECT)
== END 2020-06-25 02:09 | disposition home or self-care (01) ==
LOC: ER 22:31
PROVIDERS: Emergency Medicine
DX: R07.9 Chest pain, unspecified (principal); I10 Essential (primary) hypertension; E11.9 Type 2 diabetes mellitus without complications; F41.9 Anxiety disorder, unspecified; F32.9 Major depressive disorder, single episode, unspecified; K21.9 Gastro-esophageal reflux disease without esophagitis; Z91.030 Bee allergy status; Z88.8 Allergy status to other drugs, medicaments and biological substances; Z79.82 Long term (current) use of aspirin; Z79.4 Long term (current) use of insulin; Z79.02 Long term (current) use of antithrombotics/antiplatelets; Z79.899 Other long term (current) drug therapy; Z86.73 Personal history of transient ischemic attack (TIA), and cerebral infarction without residual deficits
CPT/HCPCS: 0202U; 36415; 71045; 80053; 84484; 85025; 85379; 93005; 93010; 99285-25

== ENCOUNTER 2020-12-29 18:10 | Emergency (ER) | payer MEDICARE, OTHER ==
[~2020-12-29] VITALS: Ht 167.6 cm; Wt 99.8 kg
== END 2020-12-29 20:18 | disposition home or self-care (01) ==
LOC: ER 18:10
DX: S90.111A Contusion of right great toe without damage to nail, initial encounter (principal); I10 Essential (primary) hypertension; E11.9 Type 2 diabetes mellitus without complications; K21.9 Gastro-esophageal reflux disease without esophagitis; Z91.030 Bee allergy status; Z88.8 Allergy status to other drugs, medicaments and biological substances; Z79.82 Long term (current) use of aspirin; Z79.899 Other long term (current) drug therapy; Z79.4 Long term (current) use of insulin; W20.8XXA Other cause of strike by thrown, projected or falling object, initial encounter
CPT/HCPCS: 64450; 73630; 90471; 90714; 99283-25

== ENCOUNTER 2021-02-04 16:57 | Emergency (ER) | payer MEDICARE, OTHER ==
[~2021-02-04] VITALS: Ht 167.6 cm; Wt 120.2 kg
[2021-02-04 17:39] LABS: BASOPHILS ABSOLUTE AUTO 0.04 K/mm3 (0.00-0.23); BASOPHILS PERCENT AUTO 1 % (0-2); EOSINOPHILS ABSOLUTE AUTO 0.16 K/mm3 (0.00-0.68); EOSINOPHILS PERCENT AUTO 2 % (0-6); Hematocrit 35.1 % (33.0-51.0); Hemoglobin 11.2 g/dL (11.5-16.0); IMMATURE GRAN ABSOLUTE AUTO 0.08 K/mm3 (0.00-0.10); IMMATURE GRAN PERCENT AUTO 1 % (0-1); LYMPHOCYTES ABSOLUTE AUTO 1.26 K/mm3 (0.84-5.20); LYMPHOCYTES PERCENT AUTO 17 % (21-46); MONOCYTES ABSOLUTE AUTO 0.46 K/mm3 (0.16-1.47); MONOCYTES PERCENT AUTO 6 % (4-13); Mean Corpuscular HGB Conc 31.9 g/dL (31.5-36.5); Mean Corpuscular Volume 88 fL (80-100); Mean Platelet Volume 8.6 fL (9.1-12.4); NEUTROPHILS PERCENT AUTO 73 % (41-73); Platelet Count 224 K/mm3 (150-400); RDW Coefficient Variation 13.6 % (11.7-14.2); RDW Standard Deviation 43.8 fL (35.1-46.3)
[2021-02-04 17:52] LABS: Alanine Aminotransfer (ALT/SGP 22 U/L (12-78); Albumin, Blood 3.1 g/dL (3.4-5.0); Albumin/Globulin Ratio 0.9 (0.8-1.8); Alk Phos 80 U/L (50-136); Anion Gap 3 mmol/L (6-16); Aspartate Aminotrans (AST/SGOT 13 U/L (12-37); Bilirubin, Total 0.4 mg/dL (0.1-1.0); Blood Urea Nitrogen 22 mg/dL (8-24); Bun/Creatinine Ratio 21.8 (12.0-20.0); CO2, Blood 30 mmol/L (21-32); Chloride, Blood 108 mmol/L (98-108); Creatinine, Blood 1.01 mg/dL (0.40-1.00); Globulin, Blood 3.4 g/dL (2.2-4.0); Glomerular Filtration Rate 57 (60-); Glucose, Blood 193 mg/dL (70-99); Potassium, Blood 3.6 mmol/L (3.5-5.5); Sodium, Blood 141 mmol/L (136-145); Total Protein, Blood 6.5 g/dL (6.4-8.2); Troponin I <0.015 ng/mL (0.000-0.040)
== END 2021-02-04 21:38 | disposition home or self-care (01) ==
LOC: ER 16:57
PROVIDERS: Emergency Medicine
DX: R07.9 Chest pain, unspecified (principal); I10 Essential (primary) hypertension; E11.9 Type 2 diabetes mellitus without complications; K21.9 Gastro-esophageal reflux disease without esophagitis; Z79.82 Long term (current) use of aspirin; Z79.899 Other long term (current) drug therapy; Z79.4 Long term (current) use of insulin; Z88.8 Allergy status to other drugs, medicaments and biological substances; Z91.030 Bee allergy status
CPT/HCPCS: 71046; 80053; 84484; 85025; 93005; 93010; 99285-25

== ENCOUNTER → 2021-06-14 | Outpatient (CLI) | payer MEDICARE, OTHER ==
[2021-06-14 11:52] LABS: BASOPHILS ABSOLUTE AUTO 0.05 K/mm3 (0.00-0.23); BASOPHILS PERCENT AUTO 1 % (0-2); EOSINOPHILS ABSOLUTE AUTO 0.22 K/mm3 (0.00-0.68); EOSINOPHILS PERCENT AUTO 3 % (0-6); Hematocrit 37.4 % (33.0-51.0); Hemoglobin 12.1 g/dL (11.5-16.0); IMMATURE GRAN PERCENT AUTO 1 % (0-1); LYMPHOCYTES ABSOLUTE AUTO 1.16 K/mm3 (0.84-5.20); LYMPHOCYTES PERCENT AUTO 14 % (21-46); MONOCYTES PERCENT AUTO 6 % (4-13); Mean Corpuscular HGB 27.4 pg (26.0-34.0); Mean Corpuscular HGB Conc 32.4 g/dL (31.5-36.5); Mean Corpuscular Volume 85 fL (80-100); Mean Platelet Volume 8.7 fL (9.1-12.4); NEUTROPHILS ABSOLUTE AUTO 6.24 K/mm3 (1.96-9.15); NEUTROPHILS PERCENT AUTO 76 % (41-73); Platelet Count 256 K/mm3 (150-400); RDW Coefficient Variation 14.6 % (11.7-14.2); RDW Standard Deviation 45.1 fL (35.1-46.3); Red Blood Cell Count 4.42 M/mm3 (3.80-5.20); White Blood Cell Count 8.27 K/mm3 (4.00-11.30)
[2021-06-14 12:06] LABS: Alanine Aminotransfer (ALT/SGP 20 U/L (12-78); Albumin, Blood 3.4 g/dL (3.4-5.0); Albumin/Globulin Ratio 0.9 (0.8-1.8); Alk Phos 88 U/L (40-126); Anion Gap 7 mmol/L (6-16); Aspartate Aminotrans (AST/SGOT 8 U/L (12-37); Bilirubin, Total 0.5 mg/dL (0.1-1.0); Blood Urea Nitrogen 20 mg/dL (8-24); Bun/Creatinine Ratio 18.7 (12.0-20.0); CO2, Blood 31 mmol/L (21-32); Calcium, Blood 9.3 mg/dL (8.5-10.1); Chloride, Blood 105 mmol/L (98-108); Creatinine, Blood 1.07 mg/dL (0.40-1.00); Globulin, Blood 3.7 g/dL (2.2-4.0); Glomerular Filtration Rate 50 (60-); Glucose, Blood 152 mg/dL (70-99); Potassium, Blood 4.3 mmol/L (3.5-5.5); Sodium, Blood 143 mmol/L (136-145); Total Protein, Blood 7.1 g/dL (6.4-8.2)
[2021-06-14 12:18] LABS: Troponin I <0.017 ng/mL (0.000-0.040)
== END | disposition home or self-care (01) ==
LOC: LAB SHORT 11:45 → LAB 11:45
PROVIDERS: General Practice
DX: R07.9 Chest pain, unspecified (principal)
CPT/HCPCS: 80053; 83880; 84484; 85025; 85379

== ENCOUNTER 2022-02-08 22:49 | Emergency (ER) | payer MEDICARE, OTHER ==
[~2022-02-08] VITALS: Ht 167.6 cm; Wt 117.9 kg
[2022-02-08 23:37] LABS: BASOPHILS ABSOLUTE AUTO 0.03 K/mm3 (0.00-0.23); BASOPHILS PERCENT AUTO 1 % (0-2); EOSINOPHILS ABSOLUTE AUTO 0.09 K/mm3 (0.00-0.68); EOSINOPHILS PERCENT AUTO 1 % (0-6); Hematocrit 35.3 % (33.0-51.0); Hemoglobin 11.3 g/dL (11.5-16.0); IMMATURE GRAN ABSOLUTE AUTO 0.05 K/mm3 (0.00-0.10); IMMATURE GRAN PERCENT AUTO 1 % (0-1); LYMPHOCYTES ABSOLUTE AUTO 1.57 K/mm3 (0.84-5.20); LYMPHOCYTES PERCENT AUTO 24 % (21-46); MONOCYTES PERCENT AUTO 8 % (4-13); Mean Corpuscular Volume 84 fL (80-100); Mean Platelet Volume 8.4 fL (9.1-12.4); NEUTROPHILS ABSOLUTE AUTO 4.27 K/mm3 (1.96-9.15); NEUTROPHILS PERCENT AUTO 66 % (41-73); Platelet Count 242 K/mm3 (150-400); RDW Standard Deviation 45.9 fL (35.1-46.3); Red Blood Cell Count 4.19 M/mm3 (3.80-5.20); White Blood Cell Count 6.51 K/mm3 (4.00-11.30)
[2022-02-08 23:56] LABS: Albumin, Blood 3.1 g/dL (3.4-5.0); Albumin/Globulin Ratio 0.9 (0.8-1.8); Bilirubin, Total 0.2 mg/dL (0.1-1.0); Bun/Creatinine Ratio 24.7 (12.0-20.0); Calcium, Blood 9.1 mg/dL (8.5-10.1); Creatinine, Blood 0.93 mg/dL (0.40-1.00); Globulin, Blood 3.6 g/dL (2.2-4.0); Potassium, Blood 3.7 mmol/L (3.5-5.5); Total Protein, Blood 6.7 g/dL (6.4-8.2)
== END 2022-02-09 00:04 | disposition home or self-care (01) ==
LOC: ER 22:49
PROVIDERS: Emergency Medicine
DX: R53.1 Weakness (principal); I10 Essential (primary) hypertension; Z91.14 Patient's other noncompliance with medication regimen; E11.9 Type 2 diabetes mellitus without complications; K21.9 Gastro-esophageal reflux disease without esophagitis; Z79.899 Other long term (current) drug therapy; Z79.02 Long term (current) use of antithrombotics/antiplatelets; Z79.82 Long term (current) use of aspirin; Z79.4 Long term (current) use of insulin; Z88.8 Allergy status to other drugs, medicaments and biological substances; Z91.038 Other insect allergy status
CPT/HCPCS: 71045; 80053; 83880; 84484; 85025; 85379; 93005; 93010; A9270; J2405; J7030

== ENCOUNTER 2022-04-05 03:55 | Emergency (ER) | payer MEDICARE, OTHER ==
[~2022-04-05] VITALS: Ht 167.6 cm; Wt 115.7 kg
[2022-04-05 04:26] LABS: BASOPHILS ABSOLUTE AUTO 0.03 K/mm3 (0.00-0.23); BASOPHILS PERCENT AUTO 1 % (0-2); EOSINOPHILS ABSOLUTE AUTO 0.15 K/mm3 (0.00-0.68); EOSINOPHILS PERCENT AUTO 3 % (0-6); Hematocrit 35.4 % (33.0-51.0); Hemoglobin 11.2 g/dL (11.5-16.0); IMMATURE GRAN ABSOLUTE AUTO 0.02 K/mm3 (0.00-0.10); IMMATURE GRAN PERCENT AUTO 0 % (0-1); LYMPHOCYTES ABSOLUTE AUTO 1.52 K/mm3 (0.84-5.20); LYMPHOCYTES PERCENT AUTO 27 % (21-46); MONOCYTES ABSOLUTE AUTO 0.46 K/mm3 (0.16-1.47); MONOCYTES PERCENT AUTO 8 % (4-13); Mean Corpuscular HGB 26.9 pg (26.0-34.0); Mean Corpuscular HGB Conc 31.6 g/dL (31.5-36.5); Mean Corpuscular Volume 85 fL (80-100); Mean Platelet Volume 8.8 fL (9.1-12.4); NEUTROPHILS ABSOLUTE AUTO 3.51 K/mm3 (1.96-9.15); NEUTROPHILS PERCENT AUTO 62 % (41-73); Platelet Count 234 K/mm3 (150-400); RDW Coefficient Variation 14.4 % (11.7-14.2); RDW Standard Deviation 44.8 fL (35.1-46.3); Red Blood Cell Count 4.16 M/mm3 (3.80-5.20); White Blood Cell Count 5.69 K/mm3 (4.00-11.30)
[2022-04-05 04:42] LABS: Albumin, Blood 3.1 g/dL (3.4-5.0); Albumin/Globulin Ratio 0.9 (0.8-1.8); Bilirubin, Total 0.3 mg/dL (0.1-1.0); Bun/Creatinine Ratio 29.7 (12.0-20.0); Calcium, Blood 9.2 mg/dL (8.5-10.1); Creatinine, Blood 1.01 mg/dL (0.40-1.00); Globulin, Blood 3.5 g/dL (2.2-4.0); Potassium, Blood 3.6 mmol/L (3.5-5.5); Total Protein, Blood 6.6 g/dL (6.4-8.2)
== END 2022-04-05 08:35 | disposition home or self-care (01) ==
LOC: ER 03:55
PROVIDERS: Emergency Medicine
DX: R07.89 Other chest pain (principal); I10 Essential (primary) hypertension; E11.9 Type 2 diabetes mellitus without complications; K21.9 Gastro-esophageal reflux disease without esophagitis; Z91.030 Bee allergy status; Z88.8 Allergy status to other drugs, medicaments and biological substances; Z79.82 Long term (current) use of aspirin; Z79.899 Other long term (current) drug therapy; Z86.73 Personal history of transient ischemic attack (TIA), and cerebral infarction without residual deficits; Z96.651 Presence of right artificial knee joint
CPT/HCPCS: 71045; 80053; 84484; 85025; J3360; J7030

== ENCOUNTER 2022-07-17 01:37 | Emergency (ER) | payer MEDICARE, OTHER ==
[~2022-07-17] VITALS: Ht 167.6 cm; Wt 109.3 kg
[2022-07-17 04:28] LABS: BASOPHILS ABSOLUTE AUTO 0.05 K/mm3 (0.00-0.23); BASOPHILS PERCENT AUTO 1 % (0-2); EOSINOPHILS ABSOLUTE AUTO 0.11 K/mm3 (0.00-0.68); EOSINOPHILS PERCENT AUTO 1 % (0-6); Hematocrit 36.9 % (33.0-51.0); Hemoglobin 11.9 g/dL (11.5-16.0); IMMATURE GRAN ABSOLUTE AUTO 0.07 K/mm3 (0.00-0.10); IMMATURE GRAN PERCENT AUTO 1 % (0-1); LYMPHOCYTES ABSOLUTE AUTO 1.52 K/mm3 (0.84-5.20); LYMPHOCYTES PERCENT AUTO 18 % (21-46); MONOCYTES ABSOLUTE AUTO 0.57 K/mm3 (0.16-1.47); MONOCYTES PERCENT AUTO 7 % (4-13); Mean Corpuscular HGB 27.7 pg (26.0-34.0); Mean Corpuscular HGB Conc 32.2 g/dL (31.5-36.5); Mean Corpuscular Volume 86 fL (80-100); Mean Platelet Volume 8.5 fL (9.1-12.4); NEUTROPHILS PERCENT AUTO 73 % (41-73); Platelet Count 239 K/mm3 (150-400); RDW Coefficient Variation 14.8 % (11.7-14.2); RDW Standard Deviation 46.2 fL (35.1-46.3); White Blood Cell Count 8.62 K/mm3 (4.00-11.30)
[2022-07-17 04:43] LABS: Bun/Creatinine Ratio 31.2 (12.0-20.0); Calcium, Blood 9.1 mg/dL (8.5-10.1); Creatinine, Blood 0.87 mg/dL (0.40-1.00); Potassium, Blood 4.5 mmol/L (3.5-5.5)
[2022-07-17] MEDS ORDERED: HYDR1TAB94 PO (05:09)
[2022-07-17] MEDS ORDERED: MECL25 PO (05:09)
== END 2022-07-17 06:46 | disposition home or self-care (01) ==
LOC: ER 01:37
PROVIDERS: Emergency Medicine
DX: S30.0XXA Contusion of lower back and pelvis, initial encounter (principal); W06.XXXA Fall from bed, initial encounter; R42 Dizziness and giddiness; I10 Essential (primary) hypertension; E11.9 Type 2 diabetes mellitus without complications; Z79.4 Long term (current) use of insulin; Z88.8 Allergy status to other drugs, medicaments and biological substances; Z91.038 Other insect allergy status; Z79.899 Other long term (current) drug therapy; Z79.82 Long term (current) use of aspirin
CPT/HCPCS: 72100; 80048; 85025; A9270; J7030

== ENCOUNTER → 2022-10-12 | Outpatient (CLI) | payer MEDICARE, OTHER ==
[~2022-10-12] MED LIST changes: +HYDR1TAB94 PO; +MECL25 PO
[2022-10-12 16:07] LABS: U Amphetamine Screen Not Detected; U Barbituate Screen Not Detected; U Benzodiazapine Screen Not Detected; U Buprenorphine Screen Not Detected; U Cannabinoids Screen Not Detected; U Cocaine Screen Not Detected; U Methadone Screen Not Detected; U Methamphetamine Screen Not Detected; U Opiates Screen Not Detected; U Oxycodone Screen Not Detected; U Phencyclidine Screen Not Detected; U Propoxyphene Screen Not Detected
== END | disposition home or self-care (01) ==
LOC: LAB 10:27 → LAB SHORT 10:27
PROVIDERS: Physician Assistant
DX: Z51.81 Encounter for therapeutic drug level monitoring (principal); Z79.899 Other long term (current) drug therapy

== ENCOUNTER → 2022-12-13 | Outpatient (CLI) | payer MEDICARE, OTHER ==
[~2022-12-13] MED LIST changes: +BUPROPION XL150 M1 PO; +EZETIMIBE10 M6 PO; +K-Dur10 MEQ; +METOPROLOL SUCC25 MG PO; +PRAMIPEXOLE DIHY1 M1 PO; +Robaxin750 MG PO
[2022-12-13 11:57] LABS: Albumin, Blood 3.5 g/dL (3.4-5.0); Albumin/Globulin Ratio 0.9 (0.8-1.8); Bilirubin, Total 0.4 mg/dL (0.1-1.0); Bun/Creatinine Ratio 15.9 (12.0-20.0); Calcium, Blood 9.9 mg/dL (8.5-10.1); Creatinine, Blood 1.13 mg/dL (0.40-1.00); Globulin, Blood 4.1 g/dL (2.2-4.0); Potassium, Blood 3.9 mmol/L (3.5-5.5); Total Protein, Blood 7.6 g/dL (6.4-8.2)
[2022-12-13 12:24] LABS: BASOPHILS ABSOLUTE AUTO 0.05 K/mm3 (0.00-0.23); BASOPHILS PERCENT AUTO 1 % (0-2); EOSINOPHILS ABSOLUTE AUTO 0.14 K/mm3 (0.00-0.68); EOSINOPHILS PERCENT AUTO 2 % (0-6); Hematocrit 39.7 % (33.0-51.0); Hemoglobin 12.8 g/dL (11.5-16.0); IMMATURE GRAN ABSOLUTE AUTO 0.18 K/mm3 (0.00-0.10); IMMATURE GRAN PERCENT AUTO 3 % (0-1); LYMPHOCYTES ABSOLUTE AUTO 1.58 K/mm3 (0.84-5.20); LYMPHOCYTES PERCENT AUTO 25 % (21-46); MONOCYTES PERCENT AUTO 6 % (4-13); Mean Corpuscular HGB 27.2 pg (26.0-34.0); Mean Corpuscular HGB Conc 32.2 g/dL (31.5-36.5); Mean Corpuscular Volume 84 fL (80-100); Mean Platelet Volume 8.8 fL (9.1-12.4); NEUTROPHILS ABSOLUTE AUTO 3.92 K/mm3 (1.96-9.15); NEUTROPHILS PERCENT AUTO 63 % (41-73); Platelet Count 270 K/mm3 (150-400); RDW Coefficient Variation 14.6 % (11.7-14.2); RDW Standard Deviation 44.8 fL (35.1-46.3); Red Blood Cell Count 4.71 M/mm3 (3.80-5.20); White Blood Cell Count 6.27 K/mm3 (4.00-11.30)
== END | disposition home or self-care (01) ==
LOC: LAB 11:36 → LAB SHORT 11:36
PROVIDERS: Family Medicine
DX: R07.9 Chest pain, unspecified (principal)
CPT/HCPCS: 80053; 84484; 85025

== ENCOUNTER 2023-01-07 09:05 | Emergency (ER) | payer MEDICARE, OTHER ==
[~2023-01-07] VITALS: Ht 172.7 cm; Wt 122.5 kg
[2023-01-07 09:58] LABS: BASOPHILS ABSOLUTE AUTO 0.03 K/mm3 (0.00-0.23); BASOPHILS PERCENT AUTO 1 % (0-2); EOSINOPHILS ABSOLUTE AUTO 0.18 K/mm3 (0.00-0.68); EOSINOPHILS PERCENT AUTO 3 % (0-6); Hematocrit 40.5 % (33.0-51.0); Hemoglobin 12.5 g/dL (11.5-16.0); IMMATURE GRAN ABSOLUTE AUTO 0.03 K/mm3 (0.00-0.10); IMMATURE GRAN PERCENT AUTO 1 % (0-1); LYMPHOCYTES ABSOLUTE AUTO 1.82 K/mm3 (0.84-5.20); LYMPHOCYTES PERCENT AUTO 28 % (21-46); MONOCYTES ABSOLUTE AUTO 0.46 K/mm3 (0.16-1.47); MONOCYTES PERCENT AUTO 7 % (4-13); Mean Corpuscular HGB 26.9 pg (26.0-34.0); Mean Corpuscular HGB Conc 30.9 g/dL (31.5-36.5); Mean Corpuscular Volume 87 fL (80-100); Mean Platelet Volume 8.5 fL (9.1-12.4); NEUTROPHILS ABSOLUTE AUTO 4.08 K/mm3 (1.96-9.15); NEUTROPHILS PERCENT AUTO 62 % (41-73); Platelet Count 276 K/mm3 (150-400); RDW Coefficient Variation 14.5 % (11.7-14.2); RDW Standard Deviation 45.9 fL (35.1-46.3); Red Blood Cell Count 4.65 M/mm3 (3.80-5.20)
[2023-01-07 10:37] LABS: Albumin, Blood 3.4 g/dL (3.4-5.0); Albumin/Globulin Ratio 0.8 (0.8-1.8); Bilirubin, Total 0.8 mg/dL (0.1-1.0); Bun/Creatinine Ratio 26.9 (12.0-20.0); Calcium, Blood 9.3 mg/dL (8.5-10.1); Creatinine, Blood 1.19 mg/dL (0.40-1.00); Potassium, Blood 4.8 mmol/L (3.5-5.5); Total Protein, Blood 7.4 g/dL (6.4-8.2)
[2023-01-07 10:37] LABS: Influenza A, PCR NEGATIVE (NEGATIVE); Influenza B, PCR NEGATIVE (NEGATIVE); Resp Syncytial Virus, PCR NEGATIVE (NEGATIVE); SARS-Cov-2 (COVID-19) PCR, MMC NEGATIVE (NEGATIVE)
[2023-01-07 11:28] VITALS: BP 141/65
== END 2023-01-07 11:29 | disposition home or self-care (01) ==
LOC: ER 09:05
PROVIDERS: Emergency Medicine
DX: R41.82 Altered mental status, unspecified (principal); F19.982 Other psychoactive substance use, unspecified with psychoactive substance-induced sleep disorder; I10 Essential (primary) hypertension; K21.9 Gastro-esophageal reflux disease without esophagitis; E11.9 Type 2 diabetes mellitus without complications; Z86.73 Personal history of transient ischemic attack (TIA), and cerebral infarction without residual deficits; Z20.822 Contact with and (suspected) exposure to COVID-19; Z91.030 Bee allergy status; Z88.8 Allergy status to other drugs, medicaments and biological substances; Z79.82 Long term (current) use of aspirin; Z79.02 Long term (current) use of antithrombotics/antiplatelets; Z79.4 Long term (current) use of insulin; Z79.899 Other long term (current) drug therapy
CPT/HCPCS: 0241U; 70450; 71045; 80053; 84484; 85025; 93005; 93010; 99285-25; J7030

== ENCOUNTER → 2023-02-22 | Outpatient (CLI) | payer MEDICARE, OTHER ==
[2023-02-22 11:10] LABS: Hematocrit 36.5 % (33.0-51.0); Hemoglobin 11.8 g/dL (11.5-16.0); Mean Corpuscular HGB 28.1 pg (26.0-34.0); Mean Corpuscular HGB Conc 32.3 g/dL (31.5-36.5); Mean Corpuscular Volume 87 fL (80-100); Mean Platelet Volume 9.1 fL (9.1-12.4); Platelet Count 268 K/mm3 (150-400); RDW Coefficient Variation 14.3 % (11.7-14.2); RDW Standard Deviation 45.1 fL (35.1-46.3); White Blood Cell Count 5.68 K/mm3 (4.00-11.30)
[2023-02-22 16:00] LABS: Alanine Aminotransfer (ALT/SGP 17 U/L (12-78); Albumin, Blood 3.5 g/dL (3.4-5.0); Alk Phos 71 U/L (50-136); Anion Gap 6 mmol/L (6-16); Aspartate Aminotrans (AST/SGOT 12 U/L (12-37); Bilirubin, Total 0.6 mg/dL (0.1-1.0); Blood Urea Nitrogen 24 mg/dL (8-24); CHOL/HDL RATIO 3.8; CO2, Blood 29 mmol/L (21-32); Calcium, Blood 9.4 mg/dL (8.5-10.1); Chloride, Blood 107 mmol/L (98-108); Cholesterol 196 mg/dL (50-200); Globulin, Blood 3.4 g/dL (2.2-4.0); Glomerular Filtration Rate 58 (60-); Glucose, Blood 97 mg/dL (70-99); HDL Cholesterol 52 mg/dL (>39); LDL/HDL RATIO 2.5; Low Density Lipoprotein Chol 131 mg/dL (0-110); Potassium, Blood 4.3 mmol/L (3.5-5.5); Sodium, Blood 142 mmol/L (136-145); Total Protein, Blood 6.9 g/dL (6.4-8.2); Triglycerides 63 mg/dL (30-160); Very Low Density Lipoprot Chol 12 mg/dL (6-32)
== END | disposition home or self-care (01) ==
LOC: LAB 09:51 → LAB SHORT 09:51
PROVIDERS: Nurse Practitioner Family
DX: R94.31 Abnormal electrocardiogram [ECG] [EKG] (principal); R42 Dizziness and giddiness; E78.00 Pure hypercholesterolemia, unspecified
CPT/HCPCS: 80053; 80061; 84443; 84484; 85027

== ENCOUNTER 2023-06-07 16:15 | Emergency (ER) | payer MEDICARE, OTHER ==
[~2023-06-07] VITALS: Ht 160 cm; Wt 106.6 kg
[2023-06-07 19:19] LABS: BASOPHILS ABSOLUTE AUTO 0.04 K/mm3 (0.00-0.23); BASOPHILS PERCENT AUTO 1 % (0-2); EOSINOPHILS ABSOLUTE AUTO 0.05 K/mm3 (0.00-0.68); EOSINOPHILS PERCENT AUTO 1 % (0-6); Hematocrit 40.9 % (33.0-51.0); Hemoglobin 13.3 g/dL (11.5-16.0); IMMATURE GRAN ABSOLUTE AUTO 0.04 K/mm3 (0.00-0.10); IMMATURE GRAN PERCENT AUTO 1 % (0-1); LYMPHOCYTES ABSOLUTE AUTO 0.64 K/mm3 (0.84-5.20); LYMPHOCYTES PERCENT AUTO 9 % (21-46); MONOCYTES ABSOLUTE AUTO 0.39 K/mm3 (0.16-1.47); MONOCYTES PERCENT AUTO 6 % (4-13); Mean Corpuscular HGB 27.2 pg (26.0-34.0); Mean Corpuscular HGB Conc 32.5 g/dL (31.5-36.5); Mean Corpuscular Volume 84 fL (80-100); NEUTROPHILS ABSOLUTE AUTO 5.67 K/mm3 (1.96-9.15); NEUTROPHILS PERCENT AUTO 83 % (41-73); RDW Coefficient Variation 14.6 % (11.7-14.2); RDW Standard Deviation 43.8 fL (35.1-46.3); Red Blood Cell Count 4.89 M/mm3 (3.80-5.20); White Blood Cell Count 6.83 K/mm3 (4.00-11.30)
[2023-06-07 19:23] LABS: Albumin, Blood 3.6 g/dL (3.4-5.0); Albumin/Globulin Ratio 0.9 (0.8-1.8); Bilirubin, Total 0.6 mg/dL (0.1-1.0); Bun/Creatinine Ratio 13.4 (12.0-20.0); Calcium, Blood 9.3 mg/dL (8.5-10.1); Creatinine, Blood 0.97 mg/dL (0.40-1.00); Potassium, Blood 3.9 mmol/L (3.5-5.5); Total Protein, Blood 7.6 g/dL (6.4-8.2)
[2023-06-07 20:57] LABS: Source, Urine Clean Catch
[2023-06-07 21:01] LABS: Appearance, Urine Hazy (Clear); Bilirubin, Urine Neg (Neg); Blood, Urine 1+ (Neg); Glucose Qualitative, Urine Neg (Neg); Ketones, Urine 1+ (Neg); Leukocyte Esterase, Urine 2+ (Neg); Nitrite, Urine Neg (Neg); Protein, Urine 1+ (Neg); Urobilinogen, Urine NORM (Normal)
[2023-06-07 21:14] LABS: Color, Urine Pale Yellow (P-Yellow)
[2023-06-07 21:20] LABS: Bacteria Mod /hpf; Red Blood Cells, Urine 0-2 /hpf (0-2); Squamous Epithelial Cells Mod /hpf (Few)
[2023-06-07] MEDS ORDERED: CEFD300 PO (21:30)
[2023-06-07 23:20] VITALS: BP 109/43
== END 2023-06-08 00:15 | disposition home or self-care (01) ==
LOC: ER 16:15
PROVIDERS: Physician Assistant
DX: N39.0 Urinary tract infection, site not specified (principal); I10 Essential (primary) hypertension; E11.9 Type 2 diabetes mellitus without complications; F32.A Depression, unspecified; K21.9 Gastro-esophageal reflux disease without esophagitis; Z20.822 Contact with and (suspected) exposure to COVID-19; Z88.8 Allergy status to other drugs, medicaments and biological substances; Z91.038 Other insect allergy status; Z79.899 Other long term (current) drug therapy; Z79.82 Long term (current) use of aspirin; Z79.4 Long term (current) use of insulin
CPT/HCPCS: 80053; 81001; 85025; 87077; 87086; 87186; 93005; 93010; 96365; 96375; 99284-25; A9270; J0696; J1885; J7030

== ENCOUNTER → 2023-07-19 | Outpatient (CLI) | payer MEDICARE, OTHER ==
[~2023-07-19] MED LIST changes: +CEFD300 PO
[2023-07-19 17:27] LABS: Percent Saturation 14.2 % (15.0-50.0)
[2023-07-21 15:45] LABS: ANTI-NUCLEAR AB ANA,IGG ELISA Detected (None Detected)
[2023-07-22 23:10] LABS: ANTINUCLEAR AB (ANA),HEP-2,IGG Detected (<1:80)
[2023-07-22 23:12] LABS: ANA PATTERN Homogeneous
[2023-07-23 14:28] LABS: SMITH/RNP (ENA) AB, IGG 8 Units (0-19)
[2023-07-23 23:45] LABS: DOUBLE-STRANDED DNA IGG ELISA 4 IU (0-24)
[2023-07-26 20:33] LABS: JO-1 HISTIDYL-TRNA SYNTHET,IGG 1 AU/mL (0-40); SCLERODERMA (SCL-70) AB,IGG 1 AU/mL (0-40); SMITH (ENA) ANTIBODY, IGG 2 AU/mL (0-40); SSA-52 (RO52) (ENA) AB, IGG 7 AU/mL (0-40); SSA-60 (RO60) (ENA) AB, IGG 2 AU/mL (0-40); SSB (LA) (ENA) ANTIBODY, IGG 0 AU/mL (0-40)
== END ==
LOC: LAB 16:22 → LAB SHORT 16:22
PROVIDERS: Nurse Practitioner Family
DX: M62.81 Muscle weakness (generalized) (principal); R53.83 Other fatigue; D50.9 Iron deficiency anemia, unspecified
CPT/HCPCS: 82728; 83540; 83550; 86038; 86039; 86225; 86235; 87077; 87086; 87186

== ENCOUNTER → 2023-11-18 | Outpatient (CLI) | payer MEDICARE, OTHER ==
[~2023-11-18] MED LIST changes: +ALEVAZOL56.7 G1 TOP; +FURO20 PO; +VICTOZA 2-0.6 MG/0.1
[2023-11-18 23:08] LABS: Albumin, Blood 3.3 g/dL (3.4-5.0); Bilirubin, Total 0.4 mg/dL (0.1-1.0); Bun/Creatinine Ratio 20.9 (12.0-20.0); Calcium, Blood 9.4 mg/dL (8.5-10.1); Creatinine, Blood 0.86 mg/dL (0.40-1.00); Globulin, Blood 3.3 g/dL (2.2-4.0); Potassium, Blood 3.8 mmol/L (3.5-5.5); Total Protein, Blood 6.6 g/dL (6.4-8.2)
== END | disposition home or self-care (01) ==
LOC: LAB SHORT 16:26 → LAB 16:26
PROVIDERS: Nurse Practitioner Family
DX: R60.9 Edema, unspecified (principal)
CPT/HCPCS: 80053

== ENCOUNTER 2023-11-30 14:01 | Inpatient (IN) | payer MEDICARE, OTHER ==
[~2023-11-30] VITALS: Ht 165.1 cm; Wt 101.9 kg
[~2023-11-30 14:01] MED LIST changes: -FURO20 PO; -VICTOZA 2-0.6 MG/0.1
[2023-11-30] MEDS ORDERED: HYDROmorphone HCl/Pf 1MG SYR IV ONE ×2 (15:20→21:00)
[2023-11-30] MEDS ORDERED: Propofol 10mg/ml 20 ml Vial (Procedural) IV SCH (15:30)
[2023-11-30 15:42] LABS: Albumin, Blood 3.3 g/dL (3.4-5.0); Albumin/Globulin Ratio 0.8 (0.8-1.8); Bilirubin, Total 0.4 mg/dL (0.1-1.0); Bun/Creatinine Ratio 28.6 (12.0-20.0); Calcium, Blood 9.7 mg/dL (8.5-10.1); Creatinine, Blood 0.84 mg/dL (0.40-1.00); Globulin, Blood 3.9 g/dL (2.2-4.0); Potassium, Blood 4.4 mmol/L (3.5-5.5); Total Protein, Blood 7.2 g/dL (6.4-8.2)
[2023-11-30 15:51] LABS: BASOPHILS ABSOLUTE AUTO 0.07 K/mm3 (0.00-0.23); BASOPHILS PERCENT AUTO 1 % (0-2); EOSINOPHILS ABSOLUTE AUTO 0.28 K/mm3 (0.00-0.68); EOSINOPHILS PERCENT AUTO 3 % (0-6); Hemoglobin 12.1 g/dL (11.5-16.0); IMMATURE GRAN ABSOLUTE AUTO 0.06 K/mm3 (0.00-0.10); IMMATURE GRAN PERCENT AUTO 1 % (0-1); LYMPHOCYTES ABSOLUTE AUTO 1.89 K/mm3 (0.84-5.20); LYMPHOCYTES PERCENT AUTO 22 % (21-46); MONOCYTES ABSOLUTE AUTO 0.52 K/mm3 (0.16-1.47); MONOCYTES PERCENT AUTO 6 % (4-13); Mean Corpuscular HGB 27.5 pg (26.0-34.0); Mean Corpuscular HGB Conc 32.7 g/dL (31.5-36.5); Mean Corpuscular Volume 84 fL (80-100); NEUTROPHILS ABSOLUTE AUTO 5.78 K/mm3 (1.96-9.15); NEUTROPHILS PERCENT AUTO 67 % (41-73); RDW Coefficient Variation 14.2 % (11.7-14.2); RDW Standard Deviation 43.5 fL (35.1-46.3)
[2023-11-30] MEDS ORDERED: NS 1,000 ML IV SCH ×5 (15:55→22:55)
[2023-11-30 16:24] LABS: Mean Platelet Volume 9.1 fL (9.1-12.4); Platelet Count 336 K/mm3 (150-400)
[2023-11-30] MEDS ORDERED: Ketamine HCL 10 MG in NS 100 ML IV ONE ×2 (16:35→16:40)
[2023-11-30] MEDS ORDERED: FURO20 PO (16:45)
[2023-11-30] MEDS ORDERED: VICTOZA 2-0.6 MG/0.1 (16:47)
[2023-11-30] MEDS ORDERED: FentaNYL Citrate 50 MCG/ML 2 ML Injection ONE (16:48)
[2023-11-30] MEDS ORDERED: FentaNYL Citrate 50 MCG/ML 2 ML Injection IV ONE ×2 (16:50→18:20)
[2023-11-30] MEDS ORDERED: Pramipexole DI-HCL 1 Mg Tab PO ONE (18:40)
[2023-11-30] MEDS ORDERED: Ketorolac Tromethamine 30mg Vial IV ONE (21:00)
[2023-11-30] MEDS ORDERED: Ondansetron HCl 2 MG / ML 2ML Vial IV ONE (22:00)
[2023-11-30] MEDS ORDERED: FentaNYL Citrate 50 MCG/ML 2 ML Injection IV PRN (22:55)
[2023-11-30] MEDS ORDERED: Ondansetron HCl 2 MG / ML 2ML Vial IV PRN (22:55)
[2023-11-30 23:08] VITALS: BP 106/43
[2023-11-30 23:44] VITALS: BP 115/46
--- NOTE | 2023-12-01 01:33 | NUR ---
ARRIVAL NOTE PT ARRIVED FROM ER, SOFT SPLINT W/ RIVER WRAP IN PLACE ON L ANKLE. VSS. DAUGHTER IN LAW IN ROOM, PT DROWSY BUT AROUSABLE. FLUIDS STARTED PER EMAR. L LEG ELEVATED. CALL LIGHT IN REACH.
[2023-12-01] MEDS ORDERED: HYDROcodone 5-APAP 325 TAB PO PRN (02:05)
[2023-12-01 02:10] LABS: International Normalized Ratio 0.96; Prothrombin Time Results 10.3 Sec (9.7-11.5)
[2023-12-01 03:03] VITALS: BP 126/55
--- NOTE | 2023-12-01 05:23 | NUR ---
SHIFT SUMMARY PT ADMITTED EARLIER IN SHIFT FOR L ANKLE FX FROM A FALL. PT IS A/O X4 AND HAS BEEN PLEASANT WITH STAFF. SOFT SPLINT W/ RIVER WRAP ON L LEG, ELEVATED, CAP REFILL 3 SECS. PT MEDICATED FOR PAIN PER EMAR W/ TOLERABLE RESULTS. IV FLUIDS RUNNING ORDERED. VITAL SIGNS STABLE. O2 SATS >90% ON ROOM AIR. PT CURRENTLY TALKING ON THE PHONE AND RESTING IN BED, USING CALL LIGHT APPROPRIATELY. PLAN TO BE NPO AT 0000 FOR SURGERY ON TUESDAY.
[2023-12-01 06:11] LABS: BASOPHILS ABSOLUTE AUTO 0.04 K/mm3 (0.00-0.23); BASOPHILS PERCENT AUTO 1 % (0-2); EOSINOPHILS ABSOLUTE AUTO 0.07 K/mm3 (0.00-0.68); EOSINOPHILS PERCENT AUTO 1 % (0-6); Hematocrit 36.1 % (33.0-51.0); IMMATURE GRAN ABSOLUTE AUTO 0.04 K/mm3 (0.00-0.10); IMMATURE GRAN PERCENT AUTO 1 % (0-1); LYMPHOCYTES ABSOLUTE AUTO 1.12 K/mm3 (0.84-5.20); LYMPHOCYTES PERCENT AUTO 15 % (21-46); MONOCYTES ABSOLUTE AUTO 0.37 K/mm3 (0.16-1.47); MONOCYTES PERCENT AUTO 5 % (4-13); Mean Corpuscular HGB 26.9 pg (26.0-34.0); Mean Corpuscular HGB Conc 30.5 g/dL (31.5-36.5); Mean Corpuscular Volume 88 fL (80-100); Mean Platelet Volume 8.8 fL (9.1-12.4); NEUTROPHILS ABSOLUTE AUTO 5.96 K/mm3 (1.96-9.15); NEUTROPHILS PERCENT AUTO 79 % (41-73); Platelet Count 285 K/mm3 (150-400); RDW Standard Deviation 45.1 fL (35.1-46.3); Red Blood Cell Count 4.09 M/mm3 (3.80-5.20)
[2023-12-01] MEDS ORDERED: Acetaminophen 325 MG TABLET PO PRN (06:25)
[2023-12-01 06:34] LABS: Albumin/Globulin Ratio 0.9 (0.8-1.8); Bilirubin, Total 0.3 mg/dL (0.1-1.0); Bun/Creatinine Ratio 29.2 (12.0-20.0); Calcium, Blood 8.9 mg/dL (8.5-10.1); Creatinine, Blood 0.82 mg/dL (0.40-1.00); Globulin, Blood 3.5 g/dL (2.2-4.0); Potassium, Blood 4.4 mmol/L (3.5-5.5); Total Protein, Blood 6.5 g/dL (6.4-8.2)
[2023-12-01 06:54] VITALS: BP 126/83
[2023-12-01] MEDS ORDERED: Insulin Human Lispro 100 Units/ML 3ML Syringe SC SCH (07:30)
[2023-12-01] MEDS ORDERED: Potassium Chloride 20 MEQ TabCR PO SCH (09:00)
[2023-12-01] MEDS ORDERED: buPROPion HCL 150 MG TAB.SR.12H PO SCH (09:00)
[2023-12-01] MEDS ORDERED: Metoprolol Succinate 25 MG TABCR PO SCH (09:00)
[2023-12-01] MEDS ORDERED: Losartan Potassium 50 MG Tab PO SCH (09:00)
[2023-12-01] MEDS ORDERED: Clopidogrel Bisulfate 75 MG Tab PO SCH (09:00)
[2023-12-01] MEDS ORDERED: Furosemide 20 MG Tab PO SCH (09:00)
[2023-12-01] MEDS ORDERED: Aspirin 81 MG TabEC PO SCH (09:00)
[2023-12-01] MEDS ORDERED: Miconazole Nitrate 2% 85 GM PWD TOP SCH (09:30)
[2023-12-01 16:09] VITALS: BP 134/66
[2023-12-01 19:36] VITALS: BP 110/46
[2023-12-01 20:15] VITALS: BP 123/60
[2023-12-01] MEDS ORDERED: Insulin Glargine-Yfgn 100 Unit/mL 3 ML SYR SC SCH (21:00)
[2023-12-01] MEDS ORDERED: Pramipexole DI-HCL 1 Mg Tab PO SCH (21:00)
[2023-12-02] VITALS (19 sets, daily range): BP systolic 115–170; BP diastolic 51–107
[2023-12-02 05:47] LABS: BASOPHILS ABSOLUTE AUTO 0.05 K/mm3 (0.00-0.23); BASOPHILS PERCENT AUTO 1 % (0-2); EOSINOPHILS ABSOLUTE AUTO 0.22 K/mm3 (0.00-0.68); EOSINOPHILS PERCENT AUTO 3 % (0-6); Hematocrit 33.4 % (33.0-51.0); Hemoglobin 10.3 g/dL (11.5-16.0); IMMATURE GRAN ABSOLUTE AUTO 0.03 K/mm3 (0.00-0.10); IMMATURE GRAN PERCENT AUTO 0 % (0-1); LYMPHOCYTES ABSOLUTE AUTO 1.34 K/mm3 (0.84-5.20); LYMPHOCYTES PERCENT AUTO 19 % (21-46); MONOCYTES ABSOLUTE AUTO 0.56 K/mm3 (0.16-1.47); MONOCYTES PERCENT AUTO 8 % (4-13); Mean Corpuscular HGB 26.8 pg (26.0-34.0); Mean Corpuscular HGB Conc 30.8 g/dL (31.5-36.5); Mean Corpuscular Volume 87 fL (80-100); Mean Platelet Volume 8.5 fL (9.1-12.4); NEUTROPHILS ABSOLUTE AUTO 4.77 K/mm3 (1.96-9.15); NEUTROPHILS PERCENT AUTO 69 % (41-73); Platelet Count 267 K/mm3 (150-400); RDW Coefficient Variation 14.1 % (11.7-14.2); RDW Standard Deviation 44.8 fL (35.1-46.3); Red Blood Cell Count 3.84 M/mm3 (3.80-5.20); White Blood Cell Count 6.97 K/mm3 (4.00-11.30)
[2023-12-02] MEDS ORDERED: Omeprazole 20 MG CapCR PO SCH (06:00)
[2023-12-02 06:16] LABS: Bun/Creatinine Ratio 26.2 (12.0-20.0); Calcium, Blood 9.1 mg/dL (8.5-10.1); Creatinine, Blood 0.84 mg/dL (0.40-1.00); Potassium, Blood 4.3 mmol/L (3.5-5.5)
--- NOTE | 2023-12-02 06:36 | NUR ---
SHIFT SUMMARY NOC. PT PREOP FOR LEFT ANKLE FX. PT A/O X4 TOLERATING PO AND VOIDING URINE VIA PUREWICK. PT'S PAIN DIFFICULT TO CONTROL TO PT'S GOAL. SOFT SPLINT INTACT ON LEFT LOWER EXTREMITY, CAP REFILL LESS THAN 3 SECONDS, ABLE TO WIGGLE TOES WHEN ASKED. PT RESTED FOR PERIODS OF TIME WITH EYES CLOSED AND CALL LIGHT IN REACH.
[2023-12-02] MEDS ORDERED: NS 1,000 ML IV SCH (07:45)
[2023-12-02] MEDS ORDERED: HYDROcodone 5-APAP 325 TAB PO PRN (11:45)
[2023-12-02] MEDS ORDERED: Lactated Ringer's 1,000 ML IV SCH (11:55)
[2023-12-02] MEDS ORDERED: propofoL 20 ML IV ONE (12:02)
[2023-12-02] MEDS ORDERED: FentaNYL Citrate 50 MCG/ML 2 ML Injection ONE (12:02)
[2023-12-02] MEDS ORDERED: EPINEPhrine HCl 1 MG/ML 1ML Amp ONE (12:03)
[2023-12-02] MEDS ORDERED: Ondansetron HCl 2 MG / ML 2ML Vial ONE (12:03)
[2023-12-02] MEDS ORDERED: Dexamethasone Sod Phos 10 MG/ML 1ML VIAL ONE (12:03)
[2023-12-02] MEDS ORDERED: Ropivacaine 0.5% HCl/Pf 5 MG/ML 20ML VIAL ONE (12:05)
[2023-12-02] MEDS ORDERED: Lidocaine HCl 4% 5 ML SDA ONE (12:18)
[2023-12-02] MEDS ORDERED: Bupivacaine 0.5% HCl 5 MG/ML 30MLVIAL ONE (12:19)
--- NOTE | 2023-12-02 12:27 | NUR ---
DAY SURGERY TO ROOM AT 1215. TOOK PATIENT ON BED TO DAY SURGERY.
--- NOTE | 2023-12-02 12:43 | NUR ---
DR PASTOR AT BEDSIDE IN DAY SURGERY. HIS PLAN IS TO LEAVE SPLINT IN PLACE AND NOT HAVE DAY SURGERY NURSE WIPE WITH CHLORHEXIDINE WIPE PRE-OP. CALF PAS APPLIED TO RLE.
[2023-12-02] MEDS ORDERED: Cefazolin 2000MG/Dextrose,ISO 50 ML IV SCH (12:45)
--- NOTE | 2023-12-02 12:45 | NUR ---
DR. PASTOR AWARE OF NEW ONSET ERYTHEMA TO RLE.
[2023-12-02] MEDS ORDERED: CeFAZolin Sodium 2,000 MG in NS 100 ML IV SCH (12:50)
--- NOTE | 2023-12-02 12:53 | NUR ---
6289- TIME OUT WITH DR ALAS FOR NERVE BLOCKS. LLE ELEVATED ON OVERHEAD TABLE WITH PILLOW FOR SUPPORT.
--- NOTE | 2023-12-02 12:57 | NUR ---
NERVE BLOCK START TIME 1257. ABORTED BY DR ALAS AT 1258.
[2023-12-02] MEDS ORDERED: Tranexamic Acid 100 ML IV SCH (13:05)
[2023-12-02] MEDS ORDERED: Rocuronium Bromide 10 MG/ML 5ML Injection IV ONE (13:12)
[2023-12-02] MEDS ORDERED: Esmolol HCL 10 MG/ML 10ML VIAL ONE (13:13)
[2023-12-02] MEDS ORDERED: Phenylephrine HCl 100 MCG/ML-NS 10MLSYR (1MG/10ML) ONE (13:34)
[2023-12-02] MEDS ORDERED: Sugammadex Sodium 200 MG/2ML SDV (100 MG/ML) ONE (15:18)
--- NOTE | 2023-12-02 15:30 | NUR ---
1515 PT BREATHING CHANGED TO SHALOW GUPPY BREATHING . BIOX DROPPING 02 INCREASED TO [address] COVARRUBIAS NOTIFIED . COMPA RN STARTED BAG MASK ASSISTED BREATHING X 1 ABOUT [address] COVARRUBIAS GAVE MEDICATION . PT BREATHING CHANGED WITHING ABOUT 1 MINUTE AND BIOX STARTED TO RISE RESP IMPROVED PT NOW AWARE AND COUGHED WHEN ASKED TO
--- NOTE | 2023-12-02 17:36 | NUR ---
SHIFT SUMMARY A&0 X4. PAIN DIFFICULT TO MANAGE THROUGHOUT THE DAY. PT TO SURGERY THIS AFTERNOON FOR AN LT ORIF WITH DR. PASTOR. DURING RECOVERY SATS DOPPING INTO THE 80'S, WHICH IMPROVED ON 3L OXYGEN, PT NOW SATTING AROUND 94%. LLE WITH SPLINT AND RIVER WRAP IN PLACE, C/D/I. PT HAVING DIFFICULTY WITH MEALS, DUE TO NOT HAVING HER DENTURES. PUREWICK IN PLACE, DRAINING YELLOW URINE. MEDICATED POST SURGERY AND TOLERATING WELL. FAMILY AT BEDSIDE. VSS. CALL LIGHT IN PLACE.
[2023-12-02] MEDS ORDERED: CeFAZolin Sodium 1,000 MG in NS 50 ML IV SCH (18:00)
[2023-12-02] MEDS ORDERED: HydrALAZINE HCl 20 MG / ML 1ML Vial IV PRN (18:55)
[2023-12-02] MEDS ORDERED: Lactobacil 2-S.Thermo-Bifido 1 1 Cap PO SCH (21:00)
[2023-12-03 03:21] VITALS: BP 97/69
[2023-12-03 03:56] VITALS: BP 116/47
[2023-12-03] MEDS ORDERED: Ketorolac Tromethamine 15mg Vial IV ONE (04:20)
[2023-12-03] MEDS ORDERED: FentaNYL Citrate 50 MCG/ML 2 ML Injection IV PRN (04:20)
[2023-12-03 05:23] LABS: BASOPHILS ABSOLUTE AUTO 0.03 K/mm3 (0.00-0.23); BASOPHILS PERCENT AUTO 0 % (0-2); EOSINOPHILS ABSOLUTE AUTO 0.04 K/mm3 (0.00-0.68); EOSINOPHILS PERCENT AUTO 1 % (0-6); Hematocrit 34.2 % (33.0-51.0); Hemoglobin 10.6 g/dL (11.5-16.0); IMMATURE GRAN ABSOLUTE AUTO 0.04 K/mm3 (0.00-0.10); IMMATURE GRAN PERCENT AUTO 1 % (0-1); LYMPHOCYTES ABSOLUTE AUTO 1.05 K/mm3 (0.84-5.20); LYMPHOCYTES PERCENT AUTO 13 % (21-46); MONOCYTES ABSOLUTE AUTO 0.68 K/mm3 (0.16-1.47); MONOCYTES PERCENT AUTO 8 % (4-13); Mean Corpuscular HGB 26.9 pg (26.0-34.0); Mean Corpuscular Volume 87 fL (80-100); Mean Platelet Volume 8.7 fL (9.1-12.4); NEUTROPHILS ABSOLUTE AUTO 6.59 K/mm3 (1.96-9.15); NEUTROPHILS PERCENT AUTO 78 % (41-73); Platelet Count 289 K/mm3 (150-400); RDW Coefficient Variation 13.7 % (11.7-14.2); RDW Standard Deviation 43.1 fL (35.1-46.3); Red Blood Cell Count 3.94 M/mm3 (3.80-5.20); White Blood Cell Count 8.43 K/mm3 (4.00-11.30)
[2023-12-03] MEDS ORDERED: Pantoprazole Sodium 40 MG Tab PO SCH (06:00)
[2023-12-03 06:09] LABS: Bun/Creatinine Ratio 25.3 (12.0-20.0); Calcium, Blood 9.2 mg/dL (8.5-10.1); Creatinine, Blood 0.99 mg/dL (0.40-1.00); Potassium, Blood 4.4 mmol/L (3.5-5.5)
[2023-12-03 07:13] VITALS: BP 107/61
--- NOTE | 2023-12-03 07:30 | NUR ---
SUMMARY AT [address] LAI AND ADVISED OF BP 116/47-BASELINE HTN,MAP 69, PULSE 79,RR 16 SATS ON 2 L 97%,CONFIRMED IF PT SHOULD BE SL.ADVISED PT C/O INCREASED PAIN AND FELT NORCO NOT MEETING DESIRED EFFECT.I ADVISED OF CREAT AND GFR,OBTAINED 1X ORDER FOR TORADOL AND PRN ORDER FOR FENTANYL. THIS AM PT VERB FENTANYL WITH GREATLY IMPROVED AFFECT.REPOSITIONED PT AND HAVE REPLACED ICE TONIGHT WELL, PT WITH SOME REDNESS INNER BUTTOCK CREASE,ENC TO REPOSITION TO SIDES TO HELP PREVENT SKIN IRRITATION OR BREAKDOWN.IV WILL CONT SL AFTER ANTIBIOTICS.
--- NOTE | 2023-12-03 16:30 | NUR ---
PT ASSISTED BACK TO BED, 2 PERSON MAX ASSIST W/ VERBAL CUES.
--- NOTE | 2023-12-03 17:53 | NUR ---
summary ER ADMIT FOR ACUTE JAY, A&OX4, DENIES ANY NEED FOR PAIN MEDS, DENIES ANY NAUSEA, CL FOR NOW, NPO AFTER MN, PLAN FOR OR TOMORROW PER DR. GONZALEZ, INDEPENDENT IN ROOM, NO ACUTE CHANGES THIS SHIFT.
--- NOTE | 2023-12-03 18:01 | NUR ---
SUMMARY POD1 ORIF L ANKLE, NWB LLE, OOB TO CHAIR TODAY W/ PT, MAX ASSIST BUT WAS ABLE TO MAINTAIN NWB, ASSISTED BACK TO BED W/ 2 PERSON MAX ASSIST BUT ABLE TO MAINTAIN NWB, PT STATES SHE DOESN'T WANT TO GO TO SNF AND WOULD PREFER TO GO HOME, REPORTS PAIN IS TOLERABLE WITH PO PAIN MEDS, NO ACUTE CHANGES THIS SHIFT.
[2023-12-03 18:25] VITALS: BP 117/50
[2023-12-03 23:31] VITALS: BP 98/45
[2023-12-03 23:50] VITALS: BP 106/43
[2023-12-04] VITALS (7 sets, daily range): BP systolic 102–156; BP diastolic 48–78
--- NOTE | 2023-12-04 00:11 | NUR ---
HYPOTENSION AND LOW MAP. DISCUSSED VITAL SIGNS WITH CHARGE NURSE. T/C PLACED TO HOSPITALIST, NEW ORDERS RECEIVED FOR NS 250 ML BOLUS X1.
[2023-12-04] MEDS ORDERED: NS 250 ML IV ONE (00:15)
[2023-12-04] MEDS ORDERED: NS 50 ML IV ONE (05:17)
--- NOTE | 2023-12-04 08:04 | NUR ---
SHIFT SUMMARY NOC. PT POD 2 ORIF OF L ANKLE. PT MEDICATED FOR PAIN WITH RELEF OF SX. PT HAD HYPOTENSION WHICH IMPROVED AFTER 250 BOLUS. PT VOIDING VIA PUREWICK AND INCONTINENT VOIDS. PT RESTED WITH EYES CLOSED AND CALL LIGHT IN REACH.
[2023-12-04] MEDS ORDERED: Polyethylene Glycol 3350 119 GM PO PRN (08:20)
[2023-12-04] MEDS ORDERED: Polyethylene Glycol 3350 17 gm PO PRN (08:25)
[2023-12-04] MEDS ORDERED: Saline Nasal Spray 45 ML PRN (08:30)
[2023-12-04] MEDS ORDERED: Sennosides 8.6 MG Tab PO SCH (09:00)
[2023-12-04] MEDS ORDERED: Docusate Sodium 100 MG Cap PO SCH (09:00)
--- NOTE | 2023-12-04 11:10 | NUR ---
A&OX4, MEDICATED FOR PAIN 03/17 THIS AM, PT CONCERNED ABOUT DISCHARGE PLANS FOR HOME, CONT. TO REFUSE SNF, ENCOURAGED TO DISCUSS OPTIONS WITH FAMILY, PT DISCUSSED CONCERNS WITH DR. PASTOR AND DR. SOUSA THIS AM, CHAIN PERSON JERMAINE ALSO SPOKE WITH PT REGARDING DC CONCERNS, DENIES ANY PAIN ON RLE, REDNESS APPEARS TO BE WITHIN MARKED LINES, REPORTS HAVING SOME SOB THIS AM, SATS 95% ON 2L O2 VIA NC, DR. SOUSA AWARE, PT ENCOURAGED TO USE IS, DENIES ANY COUGH, CONT. TO MONITOR FOR ANY CHANGES, OOB WITH ASSIST, MEDICATE FOR PAIN PER ORDERS, ENCOURAGE IS USE.
--- NOTE | 2023-12-04 11:40 | NUR ---
POST OP ARRIVED FROM PACU VIA GURNEY, AWAKE BUT DROWSY, ORIENTED X4, DENIES ANY PAIN OR NAUSEA, LUNGS CLEAR T/O, HRR, ACTIVE BT'S X4, ABD SOFT, 4 LAP INCISIONS W/ STERISTRIPS NOTED, C/D/I, PAS IN PLACE, DENIES ANY NUMBNESS OR TINGLING, AT BEDSIDE, CLEAR LIQUIDS OFFERED, CONT. TO MONITOR VS AND ANY CHANGES.
--- NOTE | 2023-12-04 12:08 | NUR ---
PT WORKING WITH PHYSICAL THERAPY.
[2023-12-04] MEDS ORDERED: Enoxaparin 40 MG/0.4 ML SYR SC SCH (16:00)
--- NOTE | 2023-12-04 17:50 | NUR ---
SUMMARY POD 2 ORIF L ANKLE, NWB, WORKED WITH PT TODAY AND RECOMMENDED SNF PLACEMENT, PT DISCUSSED CONCERNS WITH DR. LIRA AND DR. PASTOR, HAD FAMILY MEETING THIS AFTERNOON WITH BROKE BEATER OPERATOR, PT HAS REFUSED TO GO TO SNF BUT AFTER PT TODAY AND FAMILY MEETING PT HAS AGREED TO GO TO SNF, BP MEDS HELD FOR LOW BP THIS AM, DR. SOUSA AWARE, C/O SOB THIS AM, PT FELT HER "NOSE IS TOO DRY" NASAL SALINE SPRAY GIVEN, ENCOURAGED TO USE IS, PT NOW ON 1.5L O2 VIA NC, 94% SATS, DENIES ANY PAIN ON RLE, REDNESS CONT. TO BE INSIDE MARKED AREA, R GREAT TOE DRESSING CHANGED TODAY, PT STATES SHE HAD TOE NAIL REMOVED 1 MONTH AGO, FOUL ODOR NOTED WHEN BANDAID REMOVED, SCANT PURULENT DRAINAGE NOTED, PT DENIES ANY PAIN ON TOE, WOUND CLEANSED WITH WOUND CLEANSER, COVERED WITH STERILE GAUZE AND KERLIX, SECURED WITH COBAN, NO OTHER CHANGES THIS SHIFT.
[2023-12-05] MEDS ORDERED: NS 250 ML IV PRN (01:40)
[2023-12-05 05:49] VITALS: BP 138/55
--- NOTE | 2023-12-05 06:36 | NUR ---
POD 3 S/P ORIF OF L ANKLE. PT VSS T/O NIGHT; SATS >90% ON 2L O2NC. DRESSING CDI; PEDAL PULSES AND CAP REFILL WNL, PT DENIED N/T. PAIN MGD W/2.5MG OXYCODONE (PER PT REQ, STATES 5MG "WAY TOO STRONG") + TYLENOL. PT DENIED PAIN AT REST, IS PAINFUL W/MVMT. PT NEEDING EXTENSIVE EDUCATION R/T PAIN MGMT R/T MEDICATIONS, REPOSITIONING AND PHYSIOLOGY. PT MINIMALLY RECEPTIVE. PT USING PUREWICK W/O DIFFICULTY. PT REPOSITIONING SELF IN BED, IS USING CALL LIGHT FOR ASSISTANCE. PLAN TO MOBILIZE W/PT AND AWAIT DC PLANNING.
[2023-12-05 07:04] VITALS: BP 130/52
--- NOTE | 2023-12-05 07:27 | NUR ---
POD 3 S/P ORIF OF LEFT ANKLE. PT VSS T/O NIGHT; SATS >90% ON 1.5L NC, INC UP TO 2L WHEN SLEEPING. PT DENIED SOB, IS USING I/S AT BEDSIDE. SPLINT CDI, CAP REFILL WNL, PT DENIED N/T. DRESSING TO R TOE CDI, REDNESS APPEARS TO BE DECREASING FROM OUTLINED AREA. PAIN MGD W/2 NORCO W/REP RELIEF. PT USING PUREWICK TO VOID. PT ASSISTED W/REPOSITIONING IN BED. PLAN TO MOBILIZE W/PT AND AWAIT DC PLANNING.
[2023-12-05] MEDS ORDERED: Cephalexin Monohydrate 500 MG Cap PO SCH (14:00)
== END 2023-12-05 14:30 | DRG 493 ==
LOC: ER 14:01 → SURS 14:02
PROVIDERS: Family Medicine; Podiatrist Foot & Ankle Surgery; Student in an Organized Health Care Education/Training Program; ADMIT Internal Medicine
PROC: 0MQR0ZZ Repair Left Ankle Bursa and Ligament, Open Approach (ICD-10-PCS; 2023-12-02)
PROC: 0QSK04Z Reposition Left Fibula with Internal Fixation Device, Open Approach (ICD-10-PCS; principal; 2023-12-02 12:30)
DX: S82.62XA Displaced fracture of lateral malleolus of left fibula, initial encounter for closed fracture (principal); L03.115 Cellulitis of right lower limb; D64.9 Anemia, unspecified; F41.9 Anxiety disorder, unspecified; F32.A Depression, unspecified; K21.9 Gastro-esophageal reflux disease without esophagitis; S93.422A Sprain of deltoid ligament of left ankle, initial encounter; E11.9 Type 2 diabetes mellitus without complications; G25.81 Restless legs syndrome; I10 Essential (primary) hypertension; K44.9 Diaphragmatic hernia without obstruction or gangrene; W22.8XXA Striking against or struck by other objects, initial encounter; M19.90 Unspecified osteoarthritis, unspecified site; Z98.890 Other specified postprocedural states; Z90.710 Acquired absence of both cervix and uterus; Z96.653 Presence of artificial knee joint, bilateral; Z86.73 Personal history of transient ischemic attack (TIA), and cerebral infarction without residual deficits; Z90.89 Acquired absence of other organs; Z79.82 Long term (current) use of aspirin; Z79.899 Other long term (current) drug therapy; Z79.4 Long term (current) use of insulin; Z88.8 Allergy status to other drugs, medicaments and biological substances; Z91.030 Bee allergy status
CPT/HCPCS: 27788; 36415; 70450; 72125; 73600; 73610; 76000; 80048; 80053; 82947; 83880; 85025; 85610; 93005; 93010; 93971; 94760; 94762; 96361-59; 96374-59; 96375-59; 96376-59; 97110; 97116; 97162; 97530; 99285-25; A9270; C1713; C1769; C1776; G0378; J0171; J0690; J1100; J1170; J1650; J1815; J1885; J2001; J2371; J2405; J2704; J2795; J3010; J7030; J7050; J7120

== ENCOUNTER 2024-02-11 05:36 | Inpatient (IN) | payer MEDICARE, OTHER ==
[~2024-02-11] VITALS: Ht 167.6 cm; Wt 98.0 kg
[~2024-02-11 05:36] MED LIST changes: +FURO20 PO; +VICTOZA 2-0.6 MG/0.1
[2024-02-11 07:13] LABS: BASOPHILS ABSOLUTE AUTO 0.06 K/mm3 (0.00-0.23); BASOPHILS PERCENT AUTO 1 % (0-2); EOSINOPHILS ABSOLUTE AUTO 0.24 K/mm3 (0.00-0.68); EOSINOPHILS PERCENT AUTO 3 % (0-6); Hematocrit 31.8 % (33.0-51.0); Hemoglobin 9.4 g/dL (11.5-16.0); IMMATURE GRAN ABSOLUTE AUTO 0.16 K/mm3 (0.00-0.10); IMMATURE GRAN PERCENT AUTO 2 % (0-1); LYMPHOCYTES ABSOLUTE AUTO 1.35 K/mm3 (0.84-5.20); LYMPHOCYTES PERCENT AUTO 18 % (21-46); MONOCYTES ABSOLUTE AUTO 0.32 K/mm3 (0.16-1.47); MONOCYTES PERCENT AUTO 4 % (4-13); Mean Corpuscular HGB Conc 29.6 g/dL (31.5-36.5); Mean Corpuscular Volume 88 fL (80-100); Mean Platelet Volume 8.5 fL (9.1-12.4); NEUTROPHILS ABSOLUTE AUTO 5.21 K/mm3 (1.96-9.15); NEUTROPHILS PERCENT AUTO 71 % (41-73); NRBC ABSOLUTE 0.02 K/mm3 (0.00-0.02); NRBC Auto 0.3 /100 WBC (0.0-0.2); Platelet Count 325 K/mm3 (150-400); RDW Coefficient Variation 15.7 % (11.7-14.2); RDW Standard Deviation 50.1 fL (35.1-46.3); Red Blood Cell Count 3.62 M/mm3 (3.80-5.20); White Blood Cell Count 7.34 K/mm3 (4.00-11.30)
[2024-02-11 07:24] LABS: Albumin, Blood 2.9 g/dL (3.4-5.0); Albumin/Globulin Ratio 0.7 (0.8-1.8); Bilirubin, Total 0.4 mg/dL (0.1-1.0); Bun/Creatinine Ratio 18.2 (12.0-20.0); Calcium, Blood 8.9 mg/dL (8.5-10.1); Creatinine, Blood 0.77 mg/dL (0.40-1.00); Potassium, Blood 3.7 mmol/L (3.5-5.5); Total Protein, Blood 6.9 g/dL (6.4-8.2)
[2024-02-11] MEDS ORDERED: LORazepam 2 MG/ML 1ML Injection IV ONE (11:20)
[2024-02-11 12:26] LABS: Influenza A, PCR NEGATIVE (NEGATIVE); Influenza B, PCR NEGATIVE (NEGATIVE); Resp Syncytial Virus, PCR NEGATIVE (NEGATIVE); SARS-Cov-2 (COVID-19) PCR, MMC NEGATIVE (NEGATIVE)
[2024-02-11] MEDS ORDERED: Furosemide 10 MG / ML 2ML Vial IV ONE (12:45)
[2024-02-11] MEDS ORDERED: Acetaminophen 325 MG TABLET PO PRN (14:35)
[2024-02-11] MEDS ORDERED: Insulin Human Lispro 100 Units/ML 3ML Syringe SC SCH (16:30)
[2024-02-11] MEDS ORDERED: Potassium Chloride 20 MEQ TabCR PO SCH (17:00)
[2024-02-11] MEDS ORDERED: Furosemide 10 MG/ML 4ML Vial IV SCH (18:00)
[2024-02-11 18:46] VITALS: BP 114/52
[2024-02-11] MEDS ORDERED: Insulin Glargine-Yfgn 100 Unit/mL 3 ML SYR SC SCH (21:00)
[2024-02-11] MEDS ORDERED: Pramipexole DI-HCL 1 Mg Tab PO SCH (22:35)
[2024-02-12 02:37] VITALS: BP 120/63
[2024-02-12 05:50] LABS: Bun/Creatinine Ratio 24.2 (12.0-20.0); Calcium, Blood 8.9 mg/dL (8.5-10.1); Creatinine, Blood 0.91 mg/dL (0.40-1.00); Magnesium, Blood 1.4 mg/dL (1.6-2.4); Potassium, Blood 3.9 mmol/L (3.5-5.5)
--- NOTE | 2024-02-12 06:15 | NUR ---
SHIFT SUMMARY: NO ACUTE EVENTS. DENIED PAIN. PHOTOGRAPH TAKEN OF WOUND ON L MEDIAL ANKLE, THEN COVERED WITH DRY GAUZE DRESSING. IS ON O2 @ 2 L/MIN NC, RA IS BASELINE. GOOD URINE OUTPUT VIA PUREWICK. USES W/C AT BASELINE. POSSIBLE VQ SCAN TODAY.
[2024-02-12 07:42] VITALS: BP 122/51
[2024-02-12] MEDS ORDERED: Mag Sulfate 1 GM/D5% 100ML 100 ML IV STA (07:53)
[2024-02-12 08:35] LABS: Percent Saturation 20.6 % (15.0-50.0)
[2024-02-12] MEDS ORDERED: Clopidogrel Bisulfate 75 MG Tab PO SCH (09:00)
[2024-02-12] MEDS ORDERED: Enoxaparin 40 MG/0.4 ML SYR SC SCH (09:00)
[2024-02-12 13:51] VITALS: BP 120/46
[2024-02-12 20:09] VITALS: BP 119/55
[2024-02-13 05:08] VITALS: BP 123/69
[2024-02-13 05:29] LABS: Bun/Creatinine Ratio 23.4 (12.0-20.0); Calcium, Blood 8.6 mg/dL (8.5-10.1); Creatinine, Blood 0.9 mg/dL (0.40-1.00); Potassium, Blood 3.8 mmol/L (3.5-5.5)
--- NOTE | 2024-02-13 06:21 | NUR ---
SHIFT SUMMARY: PATIENT HAD NO COMLAINTS OF PAIN OR DISCOMFORT. REQUIRING 2L NC TO MAINTAIN SATS, RA AT BASELINE. UNABLE TO TOLERATE HOB DOWN CAUSING PATIENT TO BECOME SOB AND ANXIOUS.
[2024-02-13 07:51] VITALS: BP 142/54
[2024-02-13] MEDS ORDERED: Ferrous Sulfate 325 MG Tab PO SCH (08:00)
[2024-02-13] MEDS ORDERED: ALEVAZOL56.7 G1 TOP (12:35)
[2024-02-13] MEDS ORDERED: Ventolin5 MG/1 ML INH (12:35)
[2024-02-13] MEDS ORDERED: CARAC30 G2 TOP (12:36)
[2024-02-13] MEDS ORDERED: SILVADENE20 G8 TOP (12:37)
[2024-02-13] MEDS ORDERED: METO50ER PO (12:37)
== END 2024-02-13 14:30 | disposition home health service (06) | DRG 291 ==
LOC: ER 05:36 → MEDS 17:05
PROVIDERS: Emergency Medicine; ADMIT Internal Medicine
DX: I11.0 Hypertensive heart disease with heart failure (principal); I50.33 Acute on chronic diastolic (congestive) heart failure; J96.01 Acute respiratory failure with hypoxia; F41.9 Anxiety disorder, unspecified; F32.A Depression, unspecified; E11.9 Type 2 diabetes mellitus without complications; K21.9 Gastro-esophageal reflux disease without esophagitis; Z86.73 Personal history of transient ischemic attack (TIA), and cerebral infarction without residual deficits; G25.81 Restless legs syndrome; E66.9 Obesity, unspecified; Z88.8 Allergy status to other drugs, medicaments and biological substances; K44.9 Diaphragmatic hernia without obstruction or gangrene; M19.90 Unspecified osteoarthritis, unspecified site; Z96.653 Presence of artificial knee joint, bilateral; Z90.89 Acquired absence of other organs; Z98.890 Other specified postprocedural states; Z90.710 Acquired absence of both cervix and uterus; Z79.82 Long term (current) use of aspirin; Z79.4 Long term (current) use of insulin; Z79.02 Long term (current) use of antithrombotics/antiplatelets; Z79.899 Other long term (current) drug therapy; Z68.35 Body mass index [BMI] 35.0-35.9, adult
CPT/HCPCS: 0241U; 36415; 71045; 74230; 80048; 80053; 82728; 82947; 83540; 83550; 83735; 83880; 84484; 85025; 85379; 92610; 92611; 93005; 93010; 93306; 93971; 96374; 96375; 97110; 97162; 97530; 99285-25; A9270; J1650; J1815; J1940; J2060; J3475

== ENCOUNTER 2024-02-29 08:41 | Day surgery (SDC) | payer MEDICARE, OTHER ==
[~2024-02-29 08:41] MED LIST changes: +Acetaminophen650 M1 PO; +CARAC30 G2 TOP; -FURO20 PO; +FURO40 PO; -K-Dur10 MEQ; +K-Dur10 MEQ PO; +SILVADENE20 G8 TOP; -VICTOZA 2-0.6 MG/0.1; +VICTOZA 2-0.6 MG/0.1 SC; +Ventolin5 MG/1 ML INH
[2024-02-29] MEDS ORDERED: Lidocaine HCl 4% Cream 5 GM ONE (13:10)
[2024-02-29] MEDS ORDERED: PANT40 PO (19:34)
[2024-02-29] MEDS ORDERED: CEPH500 PO (23:13)
[2024-03-02] MEDS ORDERED: OMEP20ER PO (02:13)
== END 2024-03-01 05:21 | disposition home or self-care (01) ==
LOC: WOUND 08:41
DX: T81.31XA Disruption of external operation (surgical) wound, not elsewhere classified, initial encounter (principal); I11.0 Hypertensive heart disease with heart failure; I50.9 Heart failure, unspecified; E11.9 Type 2 diabetes mellitus without complications; Z88.8 Allergy status to other drugs, medicaments and biological substances
CPT/HCPCS: A6213; A9270; G0463

== ENCOUNTER 2024-02-29 18:44 | Inpatient (IN) | payer MEDICARE, OTHER ==
[~2024-02-29] VITALS: Ht 167.6 cm; Wt 99.8 kg
[2024-02-29 19:01] LABS: Base Excess Venous 5.2 mmol/L; Bicarbonate Venous 27.5 mmol/L (24.0-30.0); PCO2 Venous 55.2 mmHg (38-42); pH Blood Venous 7.35 (7.34-7.37)
[2024-02-29 19:13] LABS: BASOPHILS ABSOLUTE AUTO 0.08 K/mm3 (0.00-0.23); BASOPHILS PERCENT AUTO 1 % (0-2); EOSINOPHILS ABSOLUTE AUTO 0.37 K/mm3 (0.00-0.68); EOSINOPHILS PERCENT AUTO 4 % (0-6); Hematocrit 34.7 % (33.0-51.0); Hemoglobin 10.4 g/dL (11.5-16.0); IMMATURE GRAN ABSOLUTE AUTO 0.07 K/mm3 (0.00-0.10); IMMATURE GRAN PERCENT AUTO 1 % (0-1); LYMPHOCYTES ABSOLUTE AUTO 2.34 K/mm3 (0.84-5.20); LYMPHOCYTES PERCENT AUTO 23 % (21-46); MONOCYTES ABSOLUTE AUTO 0.57 K/mm3 (0.16-1.47); MONOCYTES PERCENT AUTO 6 % (4-13); Mean Corpuscular HGB 26.3 pg (26.0-34.0); Mean Corpuscular Volume 88 fL (80-100); Mean Platelet Volume 8.8 fL (9.1-12.4); NEUTROPHILS ABSOLUTE AUTO 6.56 K/mm3 (1.96-9.15); NEUTROPHILS PERCENT AUTO 66 % (41-73); Platelet Count 343 K/mm3 (150-400); RDW Coefficient Variation 16.8 % (11.7-14.2); RDW Standard Deviation 53.7 fL (35.1-46.3); Red Blood Cell Count 3.95 M/mm3 (3.80-5.20); White Blood Cell Count 9.99 K/mm3 (4.00-11.30)
[2024-02-29 19:25] LABS: Albumin, Blood 3.2 g/dL (3.4-5.0); Albumin/Globulin Ratio 0.7 (0.8-1.8); Bilirubin, Total 0.3 mg/dL (0.1-1.0); Bun/Creatinine Ratio 21.2 (12.0-20.0); Creatinine, Blood 0.85 mg/dL (0.40-1.00); Globulin, Blood 4.6 g/dL (2.2-4.0); Phosphorus, Blood 3.7 mg/dL (2.5-4.9); Potassium, Blood 3.8 mmol/L (3.5-5.5); Total Protein, Blood 7.8 g/dL (6.4-8.2)
[2024-02-29] MEDS ORDERED: PANT40 PO (19:34)
[2024-02-29 19:36] LABS: D-Dimer, Quantitative 1.15 mg/L FEU (0.00-0.52); International Normalized Ratio 0.91; Prothrombin Time Results 9.8 Sec (9.7-11.5)
[2024-02-29] MEDS ORDERED: Midazolam HCl 1MG / ML 2ML Vial IV SCH (19:55)
[2024-02-29 19:56] LABS: Influenza A, PCR NEGATIVE (NEGATIVE); Influenza B, PCR NEGATIVE (NEGATIVE); Resp Syncytial Virus, PCR NEGATIVE (NEGATIVE); SARS-Cov-2 (COVID-19) PCR, MMC NEGATIVE (NEGATIVE)
[2024-02-29] MEDS ORDERED: Albuterol 2.5 MG/3 ML VIAL INH PRN (20:50)
[2024-02-29] MEDS ORDERED: LORazepam 2 MG/ML 1ML Injection IV PRN (21:00)
[2024-02-29] MEDS ORDERED: Furosemide 10 MG/ML 4ML Vial IV SCH (21:00)
[2024-02-29] MEDS ORDERED: Midazolam HCl 1MG / ML 2ML Vial IV ONE (21:25)
[2024-02-29 22:20] VITALS: BP 119/93
[2024-02-29 23:05] LABS: Source, Urine Clean Catch
[2024-02-29 23:08] LABS: Bilirubin, Urine Neg (Neg); Blood, Urine Neg (Neg); Glucose Qualitative, Urine 1+ (Neg); Ketones, Urine Neg (Neg); Leukocyte Esterase, Urine Neg (Neg); Nitrite, Urine Neg (Neg); Protein, Urine 1+ (Neg); Urobilinogen, Urine NORM (Normal)
[2024-02-29] MEDS ORDERED: CEPH500 PO (23:13)
[2024-02-29 23:15] LABS: Appearance, Urine Clear (Clear); Color, Urine Yellow (P-Yellow)
[2024-02-29] MEDS ORDERED: Pramipexole DI-HCL 1 Mg Tab PO ONE (23:25)
[2024-02-29] MEDS ORDERED: Cephalexin Monohydrate 500 MG Cap PO SCH (23:25)
--- NOTE | 2024-02-29 23:25 | NUR ---
ARRIVAL TO PCU Pt arrived to PCU 18 via gurney from the ED with RN and RT. Pt very anxious, on bipap. LS crackles and diminished in the bases. Monitor shows sinus rhythm with BBB and rate in the 80's, bp stable. Family states patient is not on any supplemental oxygen at home. No GI/ complaints at this time, purewick in place until respiratory status is more stable and patient can get up to bedside commode. Pt presents with excoriated skin underneath bilateral breasts, bilateral groin, and gluteal fold. Bed bath was completed upon arrival to PCU and moisture wicking cloth applied to skin folds. Photos on file.
--- NOTE | 2024-02-29 23:56 | NUR ---
Break from Bipap Pt tolerating break from bipap for PO medications and snack. Spo2 100% on 4L per NC, respirations even and unlabored. Pt denies shortness of breath.
[2024-02-29 23:57] VITALS: BP 110/45
[2024-03-01] MEDS ORDERED: Insulin Human Lispro 100 Units/ML 3ML Syringe SC SCH
--- NOTE | 2024-03-01 01:35 | NUR ---
Attempted to repositions patient, pillow placed under left side, pt reported she cannot tolerate this. Attempted to educated patient regarding pressure sores and her already excoriated skin. Pt not receeptive to this and yells "Just take it out or I'll do it myself" Pillow was removed and pt remains supine.
[2024-03-01 03:22] VITALS: BP 101/60
[2024-03-01 04:07] LABS: Bun/Creatinine Ratio 18.8 (12.0-20.0); Calcium, Blood 8.7 mg/dL (8.5-10.1); Creatinine, Blood 0.96 mg/dL (0.40-1.00); Magnesium, Blood 1.9 mg/dL (1.6-2.4); Potassium, Blood 3.8 mmol/L (3.5-5.5)
[2024-03-01] MEDS ORDERED: Pantoprazole Sodium 40 MG Tab PO SCH (06:00)
--- NOTE | 2024-03-01 06:03 | NUR ---
SHIFT SUMMARY Pt remains orientd throughout shift but labile and anxious. Pts respiratory distress seems to correlate with anxiety, PRN dose of ativan administered this shift. Pt tolerated bipap during respiratory distress episodes and 1-2L nasal canula once calm. Pt tolerating PO intake, purewick remains in place, 850ml urine output this shift. Pt continues to refuse turns in bed, unreceptive to education regarding importance of movement/repositioning to prevent pressure sores.
[2024-03-01 08:41] VITALS: BP 123/66
[2024-03-01] MEDS ORDERED: Enoxaparin 40 MG/0.4 ML SYR SC SCH (09:00)
[2024-03-01] MEDS ORDERED: Metoprolol Succinate 50 MG TABCR PO SCH (09:00)
[2024-03-01] MEDS ORDERED: buPROPion HCL 150 MG TAB.SR.12H PO SCH (09:00)
[2024-03-01] MEDS ORDERED: Potassium Chloride 20 MEQ TabCR PO SCH (09:00)
[2024-03-01] MEDS ORDERED: Clopidogrel Bisulfate 75 MG Tab PO SCH (09:00)
[2024-03-01] MEDS ORDERED: Metoprolol Succinate 50 MG TABCR PO ONE (09:45)
[2024-03-01] MEDS ORDERED: Metolazone 2.5 MG Tab PO SCH (10:00)
[2024-03-01 11:08] VITALS: BP 123/61
[2024-03-01] MEDS ORDERED: BusPIRone HCl 5 MG Tab PO SCH (14:00)
[2024-03-01 15:03] VITALS: BP 114/55
--- NOTE | 2024-03-01 17:22 | NUR ---
TRANSFER TO 356/SHIFT SUMMARY PT A&Ox4, CALLS AND COMMUNICATES NEEDS APPROPRIATELY. PT AGITATED WITH STAFF AT TIMES AND REFUSING CARE. VERY ANXIOUS AT TIMES CAUSING INCREASED WORK OF BREATHING, ABLE TO PROVIDE THERAPEUTIC COMMUNICATION TO DEESCALATE AND PREVENT RESPIRATORY DISTRESS. BP STALBE, SR-ST 80-100's, DENIES CP/PRESSURE. SpO2> 92% RA-2L VIA NC, REPORTS SOB WHEN LYING FLAT AND WITH ACTIVITY. INCONTINENT OF URINE, PUREWICK IN PLACE AND PATENT. PT REPORTS BEING BED BOUND AT LIVING FACILITY. Q2 TURNS PROVIDED. REPORT GIVEN TO MEDICAL FLOOR RN AT APPROXIMATELY 1640, ALL PT BELONGINGS GATHER AND PT TAKEN TO 356 VIA HOSPITAL BED BY 2 CLINICAL STAFF MEMBERS AT APPROXIMATELY 1650.
--- NOTE | 2024-03-01 17:40 | NUR ---
PT TRANSFERRED FROM U 18 TO 356 @8735 VIA [facility] BED. CONT BIOX IN PLACE. DINNER RUDDY UP FROM U. PT BEGINNING TO BE ANXIOUS AND SOB. WILL PROVIDE ATIVAN PER EMAR IF NEEDED.
[2024-03-01 19:21] VITALS: BP 141/85
[2024-03-01] MEDS ORDERED: Pramipexole DI-HCL 1 Mg Tab PO SCH (21:00)
[2024-03-01] MEDS ORDERED: Insulin Glargine-Yfgn 100 Unit/mL 3 ML SYR SC SCH (21:00)
[2024-03-02] MEDS ORDERED: OMEP20ER PO (02:13)
[2024-03-02] MEDS ORDERED: LOSA50 PO (02:14)
[2024-03-02 02:44] VITALS: BP 126/61
--- NOTE | 2024-03-02 05:22 | NUR ---
SHIFT SUMMARY PT. IS A&O X 3-4., ABLE TO MAKE HER NEEDS KNOWN. NOT COOPERATIVE WITH CARE, REFUSED AM LABS, AND CARE DURING THE EARLY AM HRS. PT. HAS 2 IV'S LEFT FOREARM NOT FLUSHING, UNABLE TO REMOVE D/T REFUSAL OF CARE. RAC HAS A SECOND IV, UNABLE TO FLUSH WELL. 02 2-4 L VIA NC, HOB >45 DEGREES. INTERMITTENT LOW SAT'S, MID 80%. PT HAS ANXIETY ATTACKS THAT ESCALATE TO PANICY BEHAVIOR; ATIVAN GIVEN X3 IV WITH SOME RELIEF, BUT PT. SCREAMING WHEN IV FLUSHED AND IV ATIVAN GIVEN D/T DISCOMFORT WITH IV ACCESS, OR UNKNOWN REASON. PT. HAS PUREWIC AND >1500ML OUTPUT, IV LASIX ADMINISTERED ORDERED. LE'S +2 EDEMA IMPROVING TO +1 BILATERALLY. NO ACUTE EVENTS DURING THIS SHIFT, WILL HANDOFF TO THE INCOMING SHIFT NURSE. BED ALARM FOR SAFETY. PT. DOES TRY TO SMACK, HIT STAFF WHEN ATTEMPTING TO GIVE MEDS.
[2024-03-02 07:17] VITALS: BP 124/56
[2024-03-02 08:31] LABS: BASOPHILS ABSOLUTE AUTO 0.04 K/mm3 (0.00-0.23); BASOPHILS PERCENT AUTO 1 % (0-2); EOSINOPHILS ABSOLUTE AUTO 0.24 K/mm3 (0.00-0.68); EOSINOPHILS PERCENT AUTO 3 % (0-6); Hematocrit 34.3 % (33.0-51.0); Hemoglobin 10.3 g/dL (11.5-16.0); IMMATURE GRAN ABSOLUTE AUTO 0.04 K/mm3 (0.00-0.10); IMMATURE GRAN PERCENT AUTO 1 % (0-1); LYMPHOCYTES ABSOLUTE AUTO 1.12 K/mm3 (0.84-5.20); LYMPHOCYTES PERCENT AUTO 14 % (21-46); MONOCYTES ABSOLUTE AUTO 0.57 K/mm3 (0.16-1.47); MONOCYTES PERCENT AUTO 7 % (4-13); Mean Corpuscular HGB 26.6 pg (26.0-34.0); Mean Corpuscular Volume 89 fL (80-100); Mean Platelet Volume 8.5 fL (9.1-12.4); NEUTROPHILS ABSOLUTE AUTO 6.05 K/mm3 (1.96-9.15); NEUTROPHILS PERCENT AUTO 75 % (41-73); Platelet Count 250 K/mm3 (150-400); RDW Coefficient Variation 16.1 % (11.7-14.2); RDW Standard Deviation 52.6 fL (35.1-46.3); Red Blood Cell Count 3.87 M/mm3 (3.80-5.20); White Blood Cell Count 8.06 K/mm3 (4.00-11.30)
[2024-03-02 08:50] LABS: Bun/Creatinine Ratio 16.8 (12.0-20.0); Calcium, Blood 9.1 mg/dL (8.5-10.1); Creatinine, Blood 0.9 mg/dL (0.40-1.00); Potassium, Blood 3.5 mmol/L (3.5-5.5)
[2024-03-02] MEDS ORDERED: Furosemide 10 MG/ML 4ML Vial IV SCH (09:00)
[2024-03-02] MEDS ORDERED: Metoprolol Succinate 50 MG TABCR PO SCH (09:00)
[2024-03-02 15:50] VITALS: BP 119/49
[2024-03-02] MEDS ORDERED: ALPRAZolam 0.5 MG Tab PO PRN (16:35)
--- NOTE | 2024-03-02 16:37 | NUR ---
SHIFT SUMMARY: PATIENT A/OX3, ANXIOUS AT BEGINNING OF SHIFT, MEDICATED c PRN ANXIETY MEDS c GOOD EFFECT. PATIENT LETHARGIC, SLEEPING ON/OFF T/O THE DAY. PATIENT CURRENTLY ON 3.5L O2 SATTING 88-97%, CONTINUES PULSE OX AT BEDSIDE. PATIENT INCONTINENT OF BLADDER, PUREWICK AND ATTENDS IN PLACED, MOD APPETITE, REPOSITIONED T/O SHIFT. PATIENT DENIES CP/PRESSURE, N/V AND DIZZINESS. PATIENT RECEIVED SCHEDULED MEDS PER EMAR. VITAL SIGNS REVIEWED. BED ALARM ON FOR SAFETY. CALL LIGHT IN REACH.
[2024-03-02 20:29] VITALS: BP 105/49
[2024-03-02] MEDS ORDERED: BusPIRone HCl 5 MG Tab PO SCH (21:00)
[2024-03-03 04:54] VITALS: BP 109/44
[2024-03-03 04:55] LABS: BASOPHILS ABSOLUTE AUTO 0.02 K/mm3 (0.00-0.23); BASOPHILS PERCENT AUTO 0 % (0-2); EOSINOPHILS ABSOLUTE AUTO 0.27 K/mm3 (0.00-0.68); EOSINOPHILS PERCENT AUTO 3 % (0-6); Hematocrit 33.6 % (33.0-51.0); Hemoglobin 10.1 g/dL (11.5-16.0); IMMATURE GRAN ABSOLUTE AUTO 0.04 K/mm3 (0.00-0.10); IMMATURE GRAN PERCENT AUTO 1 % (0-1); LYMPHOCYTES ABSOLUTE AUTO 1.25 K/mm3 (0.84-5.20); LYMPHOCYTES PERCENT AUTO 16 % (21-46); MONOCYTES PERCENT AUTO 8 % (4-13); Mean Corpuscular HGB 26.6 pg (26.0-34.0); Mean Corpuscular HGB Conc 30.1 g/dL (31.5-36.5); Mean Corpuscular Volume 88 fL (80-100); Mean Platelet Volume 8.5 fL (9.1-12.4); NEUTROPHILS ABSOLUTE AUTO 5.84 K/mm3 (1.96-9.15); NEUTROPHILS PERCENT AUTO 73 % (41-73); Platelet Count 247 K/mm3 (150-400); RDW Coefficient Variation 15.6 % (11.7-14.2); RDW Standard Deviation 50.2 fL (35.1-46.3); White Blood Cell Count 8.02 K/mm3 (4.00-11.30)
--- NOTE | 2024-03-03 05:10 | NUR ---
SHIFT SUMMARY: O2 @ 4 L/MIN NC, SWITCHED TO FACE MASK PATIENT IS A MOUTH BREATHER AND SATS WERE DECREASING TO 82-86% WHILE SLEEPING. GAVE HER A BATTERY OPERATED FAN TO SEE IF THAT WOULD EASE HER BREATHING. BREATH SOUNDS ARE VERY DIM AND BREATHING IS SHALLOW. GOT UP TO CHAIR X 1 AROUND MN BUT WENT BTB ABOUT 20 MINUTES LATER. IS PROFOUNDLY WEAK IN ALL EXTREMITIES. FAMILY BROUGHT SOUP IN FOR HER DINNER (SHE IS EDENTULOUS, DENTURES ARE AT HOME AND SHE RARELY WEARS THEM). SHE ATE VERY LITTLE. DIET HAS BEEN CHANGED TO SOFT BITE SIZED. PALLIATIVE AND SPIRITUAL CARE CONSULTS ORDERED; PT'S SON STATED THAT HIS FATHER TWO YEARS AGO AND HIS MOTHER STILL HAS IMPAIRED GRIEVING AND NEEDS TO TALK TO SOMEONE. THIS IS WHY SHE HAS STOPPED TAKING CARE OF HERSELF.
[2024-03-03 05:19] LABS: Bun/Creatinine Ratio 20.8 (12.0-20.0); Calcium, Blood 8.9 mg/dL (8.5-10.1); Creatinine, Blood 1.01 mg/dL (0.40-1.00); Potassium, Blood 3.5 mmol/L (3.5-5.5)
[2024-03-03 07:32] VITALS: BP 104/56
[2024-03-03 08:20] VITALS: BP 115/60
[2024-03-03] MEDS ORDERED: Potassium Chloride 20 MEQ TabCR PO SCH (09:00)
[2024-03-03] MEDS ORDERED: Furosemide 10 MG/ML 4ML Vial IV SCH (09:00)
[2024-03-03 15:25] VITALS: BP 110/54
[2024-03-03] MEDS ORDERED: Insulin Human Lispro 100 Units/ML 3ML Syringe SC SCH (16:30)
--- NOTE | 2024-03-03 17:37 | NUR ---
SHIFT SUMMARY: PATIENT A/OX3, CALM, PLEASANT AND COOPERATIVE c CARE. PATIENT CURRENTLY ON 2L O2 VIA NC SATING 93-97%, CONTINUES PULSE OX AT BEDSIDE. PATIENT RECEIVED BEDBATH AND LINEN CHANGED THIS AM. PATIENT WORK c PT EVAL TODAY, RECOMMEDING SNF. PATIENT ABLE TO SAT UP IN THE CHAIR FOR ABOUT 3 HRS, DID BETTER TODAY COMPARED YESTERDAY. PATIENT HAS TROUBLE SWALLOWING SOFT BITE SIZE DIET. PATIENT DIET UPDATED TO PUREED. PATIENT RESTING IN BED ON/OFF, REPOSITIONED T/O SHIFT. PATIENT DENIES GENERALIZED PAIN, SOB, DIZZINESS AND N/V. PATIENT RECEIVED SCHEDULED MEDS PER EMAR. VITAL SIGNS REVIEWED. BED ALARM ON FOR SAFETY. CALL LIGHT IN REACH.
[2024-03-03 20:01] VITALS: BP 119/45
[2024-03-04] VITALS (7 sets, daily range): BP systolic 98–122; BP diastolic 40–55
[2024-03-04 04:49] LABS: BASOPHILS ABSOLUTE AUTO 0.03 K/mm3 (0.00-0.23); BASOPHILS PERCENT AUTO 0 % (0-2); EOSINOPHILS ABSOLUTE AUTO 0.24 K/mm3 (0.00-0.68); EOSINOPHILS PERCENT AUTO 3 % (0-6); Hematocrit 36.6 % (33.0-51.0); Hemoglobin 10.8 g/dL (11.5-16.0); IMMATURE GRAN ABSOLUTE AUTO 0.04 K/mm3 (0.00-0.10); IMMATURE GRAN PERCENT AUTO 1 % (0-1); LYMPHOCYTES PERCENT AUTO 13 % (21-46); MONOCYTES ABSOLUTE AUTO 0.58 K/mm3 (0.16-1.47); MONOCYTES PERCENT AUTO 7 % (4-13); Mean Corpuscular HGB 26.2 pg (26.0-34.0); Mean Corpuscular HGB Conc 29.5 g/dL (31.5-36.5); Mean Corpuscular Volume 89 fL (80-100); Mean Platelet Volume 8.8 fL (9.1-12.4); NEUTROPHILS ABSOLUTE AUTO 6.75 K/mm3 (1.96-9.15); NEUTROPHILS PERCENT AUTO 77 % (41-73); Platelet Count 301 K/mm3 (150-400); RDW Coefficient Variation 15.3 % (11.7-14.2); RDW Standard Deviation 49.8 fL (35.1-46.3); Red Blood Cell Count 4.13 M/mm3 (3.80-5.20); White Blood Cell Count 8.74 K/mm3 (4.00-11.30)
[2024-03-04 05:12] LABS: Calcium, Blood 9.6 mg/dL (8.5-10.1); Potassium, Blood 3.8 mmol/L (3.5-5.5)
--- NOTE | 2024-03-04 05:31 | NUR ---
SHIFT SUMMARY: OVERNIGHT SLEEP STUDY ATTEMPTED, BUT PT WAS AWAKE MOST OF THE NIGHT. MEDICATED FOR ANXIETY X 1, WHICH HELPED HER SLEEP A BIT. HER MENTATION IS CLEARER THAN PREVIOUS SHIFT. CURRENTLY ON O2 @ 2 L/MIN NC, BREATH SOUNDS ARE DIM THROUGHOUT. SHE IS CHOKING AND COUGHING ON THIN LIQUIDS. PERINEUM BECOMING RED AND SWOLLEN FROM PUREWICK, SO IT WAS REMOVED. C/O BACK PAIN WHEN BEING REPOSITIONED. GOT UP TO CHAIR FOR ABOUT AN HOUR.
--- NOTE | 2024-03-04 16:23 | NUR ---
Met with Anna today at her bedside. She is alert, oriented and pleasant. She states she lives at [facility] independently and states she is not at all interested in moving into an assisted living at any time. She was admitted for dyspnea and CHF exacerbation after calling 911 for herself. This is the 2nd hospital admission in February for CHF exacerbation. Attempted to call POA/son Tristian, left message. Plan to see Anna again tomorrow, hopefully will have talked with Tristian by then.
--- NOTE | 2024-03-04 17:57 | NUR ---
SHIFT SUMMARY: PATIENT A/OX3, CALM, PLEASANT AND COOPERATIVE c CARE. PATIENT DENIES GENERALIZED PAIN, CP/PRESSURE, SOB AND DIZZINESS. PATIENT CURRENTLY ON 2L O2 VIA NC, SATING 90-98%, CONTINUES PULSE OX AT BEDSIDE. PATIENT EDEMA TO BLE'S HAS IMPROVED A LOT. PATIENT UP TO RECLINER CHAIR FOR 6 HRS c BLE'S ELEVATED ON PILLOWS, TOLERATING WELL. PATIENT DID NOT LIKE HAVING ON PUREED DIET. ST EVAL ORDERED. PATIENT RECEIVED SCHEDULED MEDS PER EMAR. BP SOFT, BUT STABLE. METOPROLOL DOSE AND IV LASIX WAS HELD THIS AM, DR. LIRA AWARE OF THIS ISSUE. PATIENT HAS NO COMPLAINT OR DENIES NEW CONCERNED THIS SHIFT. CALL LIGHT IN REACH.
[2024-03-04] MEDS ORDERED: Melatonin 3 MG Tab PO SCH (21:00)
[2024-03-05 02:44] VITALS: BP 123/47
--- NOTE | 2024-03-05 05:54 | NUR ---
PATIENT IS A&OX3, FORGETFUL OF HER LIMITATIONS AT TIMES, ON 2L NC FOR COMFORT, ON ROOM AIR AT BASELINE, NO TELE. PATIENT IS UNMOTIVATED TO DO ANYTHING. ON A SLEEP STUDY.
[2024-03-05 07:07] LABS: Bun/Creatinine Ratio 28.1 (12.0-20.0); Calcium, Blood 9.4 mg/dL (8.5-10.1); Creatinine, Blood 0.93 mg/dL (0.40-1.00); Potassium, Blood 3.7 mmol/L (3.5-5.5)
[2024-03-05 07:16] VITALS: BP 120/51
[2024-03-05] MEDS ORDERED: AcetaZOLAMIDE 250 MG Tab PO SCH (09:00)
[2024-03-05] MEDS ORDERED: Furosemide 40 MG Tab PO SCH (09:00)
[2024-03-05 16:59] VITALS: BP 106/56
--- NOTE | 2024-03-05 18:01 | NUR ---
NO ACUTE CHANGES THIS SHIFT PT HAS BEEN TEARFUL. COOPERATIVE WITH CARE. PT FAMILY AT BEDSIDE. 3L NC, CONT PULSE OX. PILLS WHOLE WITH APPLE SAUCE. 1 PERSON ASSIST WITH FWW.
[2024-03-05 20:00] VITALS: BP 117/37
[2024-03-05] MEDS ORDERED: Mirtazapine 15 MG Tab PO SCH (21:00)
[2024-03-06 02:43] VITALS: BP 111/43
--- NOTE | 2024-03-06 05:14 | NUR ---
SHIFT SUMMARY PATIENT ABLE TO MAINTAIN SAT. ON 2 L/ WITH FACE MASK DESIGNED FOR MOUTH BREATHERS. ONLY PROBLEM IS SHE TAKES IT OFF OFTEN.. DID NOT GIVEN ANY PRN MEDS TONIGHT. PATIENT STATES SHE WANTS TO GO HOME.
[2024-03-06 06:05] LABS: Bun/Creatinine Ratio 28.3 (12.0-20.0); Calcium, Blood 9.2 mg/dL (8.5-10.1); Creatinine, Blood 0.99 mg/dL (0.40-1.00); Potassium, Blood 3.6 mmol/L (3.5-5.5)
[2024-03-06 08:01] VITALS: BP 141/64
--- NOTE | 2024-03-06 11:27 | NUR ---
Spiritual care visit conducted. Patient is sitting on a chair and alert. Patient's family are bedside. We discuss the plan of care following D/C and I attempted to contact her Enlisted Advisor, Minnie, via the social media senior associate Amanda. I provided a calming presence and encouragement . Patient responded well and showed signs of an elevated mood.
[2024-03-06 15:17] VITALS: BP 102/58
--- NOTE | 2024-03-06 16:53 | NUR ---
SHIFT SUMMARY PT WORKED WITH PT/OT TODAY. UP TO CHAIR FOR MEALS. AMBULATED TO BATHROOM WITH PHYSICAL THERAPY. TRANSFERING WITH 1P ASSIST BUT DOES HAVE A LOT OF DIFFICULTY GETTING UP AND OOB/ OUT OF CHAIR. POOR APPETITE. ENSURES PROVIDED. ST EVALUATED PT AND THICKENED HER LIQUID TO NECTER. PT REFUSING SNF AT THIS TIME. PLAN FOR HOME O2 EVAL TOMORROW AND POSSIBLE DC.
[2024-03-06 19:16] VITALS: BP 105/56
[2024-03-06 21:25] VITALS: BP 120/48
[2024-03-07 04:04] VITALS: BP 119/54
--- NOTE | 2024-03-07 04:30 | NUR ---
SHIFT SUMMARY PT.A&O X4 AT , THIS AM A&O X 2-3, GETTING OUT OF BED, SITTING ON THE SIDE OF THE BED, MILDLY ANXIOUS, PANICKY. REDIRECTED, HOB >90 DEGREES, PULLED UP IN BED BY TWO STAFF MEMBERS, O2 CONTINUOUS MONITORING 85-91%. PT.REFUSED OXIMASK DURING THE NOC SHIFT, NASAL CANNULA O2 BETWEEN 2-5 L T/O THE NIGHT. PT.DENIES PAIN.HS MANUAL BP ON SOFTER SIDE, PT. DENIES DISCOMFORT. HS B. LEFT HEEL MEPILEX C/D/I. BED ALARM FOR SAFETY. CALL LIGHT IN REACH. WILL HANDOFF TO THE INCOMING SHIFT NURSE.
[2024-03-07 07:27] VITALS: BP 121/75
[2024-03-07] MEDS ORDERED: Furosemide 40 MG Tab PO SCH (09:00)
[2024-03-07] MEDS ORDERED: CEPH500 PO (11:39)
--- NOTE | 2024-03-07 13:10 | NUR ---
RN NOTE MS MARTINEZ WAS MOUTH BREATHING AT CHANGE OF SHIFTY. SAT LOW TO MID 80S. PUT ON OXYGEN VIA FACEMASK AND ENCOURAGED TO TAKE SOME DEEP BREATHS, SATS UP TO HIGH 90S. AT CHANGE OF SHIFT SHE WAS CONFUSED, LEGS OVER THE SIDE OF THE BED. BED ALARM ON, ASSISTED BACK INTO BED COMFORTABLY. WHEN MORE AWAKE SHE WAS ABLE TO ANSWER ORIENTATION QUESTIONS APPROPRIATELY BUT STILL HAS SOME CONFUSION IN HER CONVERSATION WITH MYSELF AND WITH HER FAMILY. SON AND DAUGHTER IN LAW AT BEDSIDE THIS AM. UP TO CHAIR, 1-2 PERSON ASSIST WITH GAIT BELT AND WALKER. POOR APPETITE SHE DOESN'T LIKE THE TASTE OF THE THICKENER FOR THE FLUIDS OR THE MEAL CONSISTANCY. SHE VERBALISED UNDERSTANDING OF THE RATIONALE FOR THE THICKENERS/CONSISTANCY. PT AND FAMILY VERBALISED UNDERSTANING OPF WRITTEN AND VERBAL DISCHARGE INSTRUCTIONS. AWAITING HOME OXYGEN DELIVERY. BED LOW, CALL LIGHT IN REACH, BED ALARM ON.
--- NOTE | 2024-03-07 15:50 | NUR ---
DISCHARGE NOTE DISCHARGED HOME WITH WHEELCHAIR ASSIST TO VEHICLE AT 1445HRS AFTER OXYGEN DELIVERY. NO NEW QUESTIONS OR CONCERNS PRIOR TO DISCHARGE. BOOKKEEPER RECEPTIONIST DISCONTINUED PIV.
== END 2024-03-07 14:45 | disposition home health service (06) | DRG 291 ==
LOC: ER 18:44 → MEDS 21:09 → PCU 21:09 → MEDS 03-01 16:48 → ENPENDDIS 03-07 10:53 → MEDS 03-07 14:45
PROVIDERS: Emergency Medicine; Internal Medicine; Nurse Practitioner Acute Care; ADMIT Internal Medicine
DX: I11.0 Hypertensive heart disease with heart failure (principal); I50.33 Acute on chronic diastolic (congestive) heart failure; J96.01 Acute respiratory failure with hypoxia; J96.02 Acute respiratory failure with hypercapnia; E87.20 Acidosis, unspecified; F41.0 Panic disorder [episodic paroxysmal anxiety]; E11.9 Type 2 diabetes mellitus without complications; G25.81 Restless legs syndrome; K44.9 Diaphragmatic hernia without obstruction or gangrene; E66.9 Obesity, unspecified; G47.00 Insomnia, unspecified; F32.A Depression, unspecified; K21.9 Gastro-esophageal reflux disease without esophagitis; M19.90 Unspecified osteoarthritis, unspecified site; I44.7 Left bundle-branch block, unspecified; Z79.4 Long term (current) use of insulin; Z86.73 Personal history of transient ischemic attack (TIA), and cerebral infarction without residual deficits; Z79.899 Other long term (current) drug therapy; Z79.02 Long term (current) use of antithrombotics/antiplatelets; Z88.8 Allergy status to other drugs, medicaments and biological substances; Z90.710 Acquired absence of both cervix and uterus; Z90.89 Acquired absence of other organs; Z96.653 Presence of artificial knee joint, bilateral; Z68.35 Body mass index [BMI] 35.0-35.9, adult
CPT/HCPCS: 0241U; 36415; 71045; 80048; 80053; 82803; 82947; 83605; 83735; 83880; 84100; 84145; 84484; 85025; 85379; 85610; 85730; 87040; 92526; 92610; 93005; 93010; 94660; 94760; 94761; 94762; 96374; 97110; 97116; 97162; 97166; 97530; 97535; 99285-25; A9270; J1650; J1815; J1940; J2060; J2250

== ENCOUNTER 2024-03-27 03:55 | Day surgery (SDC) | payer MEDICARE, OTHER ==
[~2024-03-27 03:55] MED LIST changes: +PANT40 PO
[2024-03-27] MEDS ORDERED: Lidocaine HCl 4% Cream 5 GM ONE (11:19)
== END 2024-03-27 23:34 | disposition home or self-care (01) ==
LOC: WOUND 03:55
DX: E11.622 Type 2 diabetes mellitus with other skin ulcer (principal); L97.822 Non-pressure chronic ulcer of other part of left lower leg with fat layer exposed; T81.31XA Disruption of external operation (surgical) wound, not elsewhere classified, initial encounter; I11.0 Hypertensive heart disease with heart failure; I50.9 Heart failure, unspecified; Y83.8 Other surgical procedures as the cause of abnormal reaction of the patient, or of later complication, without mention of misadventure at the time of the procedure
CPT/HCPCS: A9270

== ENCOUNTER 2024-04-03 02:37 | Day surgery (SDC) | payer MEDICARE, OTHER | END 2024-04-03 22:49 | disposition home or self-care (01) | LOC: WOUND 02:37 | DX: T81.31XD Disruption of external operation (surgical) wound, not elsewhere classified, subsequent encounter (principal); E11.622 Type 2 diabetes mellitus with other skin ulcer; Y83.8 Other surgical procedures as the cause of abnormal reaction of the patient, or of later complication, without mention of misadventure at the time of the procedure | CPT/HCPCS: G0463 ==

== ENCOUNTER → 2024-04-11 | Outpatient (CLI) | payer MEDICARE, OTHER ==
[2024-04-11 19:01] LABS: Bun/Creatinine Ratio 28.6 (12.0-20.0); Calcium, Blood 9.2 mg/dL (8.5-10.1); Creatinine, Blood 0.91 mg/dL (0.40-1.00)
== END ==
LOC: LAB 15:56 → LAB SHORT 15:56
PROVIDERS: Nurse Practitioner Family
DX: I50.32 Chronic diastolic (congestive) heart failure (principal)
CPT/HCPCS: 80048; 83880

== ENCOUNTER 2024-04-12 01:10 | Day surgery (SDC) | payer MEDICARE, OTHER ==
[2024-04-12] MEDS ORDERED: Lidocaine HCl 4% Cream 5 GM ONE (08:54)
== END 2024-04-12 22:49 | disposition home or self-care (01) ==
LOC: WOUND 01:10
DX: T81.31XA Disruption of external operation (surgical) wound, not elsewhere classified, initial encounter (principal); E11.622 Type 2 diabetes mellitus with other skin ulcer; L97.326 Non-pressure chronic ulcer of left ankle with bone involvement without evidence of necrosis; L97.322 Non-pressure chronic ulcer of left ankle with fat layer exposed; I11.0 Hypertensive heart disease with heart failure; I50.9 Heart failure, unspecified; E11.9 Type 2 diabetes mellitus without complications
CPT/HCPCS: A9270

== ENCOUNTER 2024-04-17 20:52 | Inpatient (IN) | payer MEDICARE, OTHER ==
[~2024-04-17] VITALS: Ht 167.6 cm; Wt 104.1 kg
[2024-04-17 22:12] LABS: BASOPHILS ABSOLUTE AUTO 0.04 K/mm3 (0.00-0.23); BASOPHILS PERCENT AUTO 1 % (0-2); EOSINOPHILS ABSOLUTE AUTO 0.16 K/mm3 (0.00-0.68); EOSINOPHILS PERCENT AUTO 2 % (0-6); Hematocrit 33.2 % (33.0-51.0); Hemoglobin 9.9 g/dL (11.5-16.0); IMMATURE GRAN ABSOLUTE AUTO 0.02 K/mm3 (0.00-0.10); IMMATURE GRAN PERCENT AUTO 0 % (0-1); LYMPHOCYTES ABSOLUTE AUTO 1.44 K/mm3 (0.84-5.20); LYMPHOCYTES PERCENT AUTO 20 % (21-46); MONOCYTES ABSOLUTE AUTO 0.51 K/mm3 (0.16-1.47); MONOCYTES PERCENT AUTO 7 % (4-13); Mean Corpuscular HGB 26.8 pg (26.0-34.0); Mean Corpuscular HGB Conc 29.8 g/dL (31.5-36.5); Mean Corpuscular Volume 90 fL (80-100); Mean Platelet Volume 8.7 fL (9.1-12.4); NEUTROPHILS ABSOLUTE AUTO 4.94 K/mm3 (1.96-9.15); NEUTROPHILS PERCENT AUTO 69 % (41-73); Platelet Count 253 K/mm3 (150-400); RDW Coefficient Variation 14.8 % (11.7-14.2); RDW Standard Deviation 48.7 fL (35.1-46.3); White Blood Cell Count 7.11 K/mm3 (4.00-11.30)
[2024-04-17 22:14] LABS: Bicarbonate Venous 38.4 mmol/L (24.0-30.0); PCO2 Venous 70.9 mmHg (38-42); pH Blood Venous 7.38 (7.34-7.37)
[2024-04-17] MEDS ORDERED: Ipratropium/Albuterol SulF 2.5-0.5MG/3 ML Amp INH ONE (22:15)
[2024-04-17 22:23] LABS: Albumin/Globulin Ratio 0.8 (0.8-1.8); Bilirubin, Total 0.2 mg/dL (0.1-1.0); Bun/Creatinine Ratio 26.4 (12.0-20.0); Calcium, Blood 9.8 mg/dL (8.5-10.1); Creatinine, Blood 0.83 mg/dL (0.40-1.00); Globulin, Blood 3.7 g/dL (2.2-4.0); Total Protein, Blood 6.7 g/dL (6.4-8.2)
[2024-04-17] MEDS ORDERED: Albuterol 2.5 MG/3 ML VIAL INH SCH (22:25)
[2024-04-17] MEDS ORDERED: Furosemide 10 MG/ML 4ML Vial IV ONE (23:55)
[2024-04-18 00:08] LABS: Influenza A, PCR NEGATIVE (NEGATIVE); Influenza B, PCR NEGATIVE (NEGATIVE); Resp Syncytial Virus, PCR NEGATIVE (NEGATIVE); SARS-Cov-2 (COVID-19) PCR, MMC NEGATIVE (NEGATIVE)
[2024-04-18] MEDS ORDERED: LORazepam 2 MG/ML 1ML Injection IV ONE (00:50)
[2024-04-18] MEDS ORDERED: Azithromycin 500 MG in NS 250 ML IV ONE (01:05)
[2024-04-18] MEDS ORDERED: CefTRIAXone Sodium 1,000 MG in NS 100 ML IV ONE (01:05)
[2024-04-18] MEDS ORDERED: Acetaminophen 325 MG TABLET PO PRN (04:35)
[2024-04-18 04:52] LABS: Base Excess Venous 19.8 mmol/L; Bicarbonate Venous 40.8 mmol/L (24.0-30.0); pH Blood Venous 7.38 (7.34-7.37)
[2024-04-18 05:05] LABS: BASOPHILS ABSOLUTE AUTO 0.04 K/mm3 (0.00-0.23); BASOPHILS PERCENT AUTO 1 % (0-2); EOSINOPHILS ABSOLUTE AUTO 0.13 K/mm3 (0.00-0.68); EOSINOPHILS PERCENT AUTO 2 % (0-6); Hematocrit 31.1 % (33.0-51.0); Hemoglobin 9.3 g/dL (11.5-16.0); IMMATURE GRAN ABSOLUTE AUTO 0.02 K/mm3 (0.00-0.10); IMMATURE GRAN PERCENT AUTO 0 % (0-1); LYMPHOCYTES ABSOLUTE AUTO 1.41 K/mm3 (0.84-5.20); LYMPHOCYTES PERCENT AUTO 22 % (21-46); MONOCYTES ABSOLUTE AUTO 0.46 K/mm3 (0.16-1.47); MONOCYTES PERCENT AUTO 7 % (4-13); Mean Corpuscular HGB Conc 29.9 g/dL (31.5-36.5); Mean Corpuscular Volume 90 fL (80-100); Mean Platelet Volume 8.8 fL (9.1-12.4); NEUTROPHILS ABSOLUTE AUTO 4.44 K/mm3 (1.96-9.15); NEUTROPHILS PERCENT AUTO 68 % (41-73); Platelet Count 245 K/mm3 (150-400); RDW Coefficient Variation 14.9 % (11.7-14.2); Red Blood Cell Count 3.45 M/mm3 (3.80-5.20)
[2024-04-18 05:24] LABS: Bun/Creatinine Ratio 22.6 (12.0-20.0); Calcium, Blood 9.5 mg/dL (8.5-10.1); Creatinine, Blood 0.88 mg/dL (0.40-1.00)
[2024-04-18] MEDS ORDERED: Insulin Regular 100 UNIT/ML 10ML Vial SC SCH ×2 (06:00→16:30)
[2024-04-18] MEDS ORDERED: Vancomycin HCL 2,000 MG in NS 500 ML IV ONE (06:30)
[2024-04-18] MEDS ORDERED: Furosemide 40 MG Tab PO SCH (09:00)
[2024-04-18] MEDS ORDERED: Lactobacil 2-S.Thermo-Bifido 1 1 Cap PO SCH (09:00)
[2024-04-18] MEDS ORDERED: Pramipexole DI-HCL 1 Mg Tab PO ONE (10:30)
--- NOTE | 2024-04-18 10:39 | NUR ---
Telephone report from JC Lubin at this time. Pt is to come to PCU 7 shortly.
[2024-04-18 11:30] VITALS: BP 114/52
[2024-04-18] MEDS ORDERED: FARXIGA5 MG PO (11:48)
[2024-04-18] MEDS ORDERED: VICTOZA 3-0.6 MG/0.2 SC (11:49)
--- NOTE | 2024-04-18 14:47 | NUR ---
Pt ate her lunch with a very good appetite, and no observable difficulties. Denies any trouble eating/drinking at home. She took thin liquids and her easy to chew meals without any coughing/choking.
[2024-04-18 15:00] VITALS: BP 112/65
--- NOTE | 2024-04-18 15:09 | NUR ---
Pt awakened, said she was having some difficulty breathing. Placed on bipap at her agreement. Marc Lopez, RT, notified. She is tolerating the bipap on 40% fio2 very well at this time, RR 27, spo2 98%. Son Tristian is at the bedside.
--- NOTE | 2024-04-18 17:34 | NUR ---
At 1630, pt was taken off of the bipap for a break to have some conversation with her family at the bedside. After about 10 minutes she was tired out and having dyspnea, RR 32/min and spo2 still >92% on 2 l/min n.c. She was put on the bipap, 35% fiO2, and has been sleeping ever since then.
[2024-04-18] MEDS ORDERED: Insulin Glargine-Yfgn 100 Unit/mL 3 ML SYR SC SCH (18:00)
--- NOTE | 2024-04-18 18:38 | NUR ---
Pt still on bipap, awakens easily to gentle conversation. Stated earlier that she was just not very hungry and didn't want to eat dinner. She appears to be tolerating the bipap very well. Call light is within her reach.
[2024-04-18 20:30] VITALS: BP 96/49
[2024-04-18] MEDS ORDERED: Metoprolol Succinate 50 MG TABCR PO SCH (21:00)
[2024-04-18] MEDS ORDERED: Pramipexole DI-HCL 0.25 MG Tab PO SCH (21:00)
[2024-04-18] MEDS ORDERED: CefTRIAXone Sodium 1,000 MG in NS 100 ML IV SCH (21:00)
[2024-04-18] MEDS ORDERED: NS 250 ML IV PRN (21:20)
[2024-04-19] VITALS (9 sets, daily range): BP systolic 96–137; BP diastolic 50–76
[2024-04-19 03:55] LABS: BASOPHILS ABSOLUTE AUTO 0.02 K/mm3 (0.00-0.23); BASOPHILS PERCENT AUTO 0 % (0-2); EOSINOPHILS ABSOLUTE AUTO 0.11 K/mm3 (0.00-0.68); EOSINOPHILS PERCENT AUTO 2 % (0-6); Hemoglobin 9.1 g/dL (11.5-16.0); IMMATURE GRAN ABSOLUTE AUTO 0.02 K/mm3 (0.00-0.10); IMMATURE GRAN PERCENT AUTO 0 % (0-1); LYMPHOCYTES ABSOLUTE AUTO 1.17 K/mm3 (0.84-5.20); LYMPHOCYTES PERCENT AUTO 21 % (21-46); MONOCYTES ABSOLUTE AUTO 0.36 K/mm3 (0.16-1.47); MONOCYTES PERCENT AUTO 7 % (4-13); Mean Corpuscular HGB 26.2 pg (26.0-34.0); Mean Corpuscular HGB Conc 29.4 g/dL (31.5-36.5); Mean Corpuscular Volume 89 fL (80-100); Mean Platelet Volume 8.5 fL (9.1-12.4); NEUTROPHILS ABSOLUTE AUTO 3.89 K/mm3 (1.96-9.15); NEUTROPHILS PERCENT AUTO 70 % (41-73); Platelet Count 207 K/mm3 (150-400); RDW Coefficient Variation 14.9 % (11.7-14.2); RDW Standard Deviation 49.1 fL (35.1-46.3); Red Blood Cell Count 3.47 M/mm3 (3.80-5.20); White Blood Cell Count 5.57 K/mm3 (4.00-11.30)
[2024-04-19] MEDS ORDERED: Albuterol 2.5 MG/3 ML VIAL INH PRN (04:25)
[2024-04-19 04:41] LABS: Bun/Creatinine Ratio 23.2 (12.0-20.0); Calcium, Blood 9.1 mg/dL (8.5-10.1); Creatinine, Blood 0.78 mg/dL (0.40-1.00); Potassium, Blood 3.8 mmol/L (3.5-5.5)
[2024-04-19] MEDS ORDERED: Vancomycin HCL 1,750 MG in NS 500 ML IV SCH (06:00)
[2024-04-19] MEDS ORDERED: Pantoprazole Sodium 40 MG Tab PO SCH (06:00)
--- NOTE | 2024-04-19 06:15 | NUR ---
SHIFT SUMMARY PT LETHARGIC DURING FIRST PART OF SHIFT, ALTHOUGH DOES RESPOND TO VERBALI STIMULI; IF STIMULI STOPPED PT QUICKLY BACK TO SLEEP. THE SHIFT WENT ON, PT BECAME MORE ALERT AND OPENING EYES SPONTANEOUSLY. PT ORIENTED X4 AND COOPERATIVE WITH CARE. VSS; SBP 96 - 127, HRR SR WITH BBB IN 80 - 90'S, AFEBRILE, SPO2 94 - 100% ON BIPAP WITH 35% FIO2. PM METOPROLOL HELD D/T HOLDING PARAMETERS AND PT SBP OF 96. PT IS ABLE TO TOLERATE TAKING BREAKS FROM BIPAP FOR MODERATE AMOUNTS OF TIME, ALTHOUGH DOES REQUEST IT BACK ON "WHEN HAS TROUBLE CATCHING BREATH". WHEN OFF BIPAP, 2 LPM NC PLACED. WHEN 2 LPM NC PLACED AT BEGINNING OF SHIFT PER PT REQUEST, PT O2 TO 83% BUT ABLE TO RECOVER WHEN BIPAP PLACED. ORIGINAL SETTINGS 16/12, BUT WHILE PT SLEEPING ALARMING LOW TIDAL VOLUMES - RT NOTIFIED AND SETTINGS ADJUSTED TO 16/8 WITH 35% FIO2. PT TOLERATING MASK WELL, ALTHOUGH CO/O "NOSE BEING SORE". READJUSTMENTS AND GEL PAD PLACED TO HELP. ORAL CARE COMPLETED PT TOLERATED. PT TOLERATING PO INTAKE WELL. NO EVENTS OF N/V. ABX PER EMAR. LLE WITH DRESSING IN PLACE; C/DI. PT REPOSITIONED Q2 OR PRN. ATTENDS AND PUREWICK IN PLACE; WITH 400 MLS UOP AND 1 UNMEASURED/INCONTINENT VOID D/T LEAKING. NO BM THIS SHIFT. ABLE TO MAKE NEEDS KNOWN, CALL LIGHT IN REACH. WILL UPDATE ONCOMING RN.
--- NOTE | 2024-04-19 07:26 | NUR ---
Pt is on bipap at time of bedside report. She awakens easily, states that she is cold. No other complaints or requests other than a warm blanket. She is tolerating the bipap , RR 25/min, on 35% fio2 and spo2 is 100%. Pt states she uses 2 l/min of O2 all the time at home now. V/S are stable. Received wound care instructions from [facility] wound clinic, and plan to change the dressing on her LLE today, per her usual schedule as outpatient. Wound photo documentation to be done at that time as well.
--- NOTE | 2024-04-19 07:32 | NUR ---
CBG 62; Pt was awakened fully and given crackers, cheese and OJ.
--- NOTE | 2024-04-19 08:18 | NUR ---
Pt c/o feeling dyspneic after eating breakfast. She was struggling and asking for the bipap. RR was 33, with accessory muscle use. Put bipap on, and she also signaled that she was having chest discomfort. No changes on tele. Heart rate was 108 bpm, sinus tachycardia, with b/p of 116/53 (70), and sp02 99% on 35% fio2. EKG being done.
--- NOTE | 2024-04-19 08:38 | NUR ---
Call to Dr. Bucio regarding the EKG, which looks abnormal. ABG getting done now. Pt is on the bipap. STates her chest pain is lessening, but it is still there. Troponin ordered STat. Pt's son Tristian called, left a message for him to come in per pt request.
[2024-04-19 08:45] LABS: PCO2 Arterial 52.1 mmHg (35-45); PO2 Arterial 76.3 mmHg (80-100); pH Blood Arterial 7.53 (7.35-7.45)
--- NOTE | 2024-04-19 08:56 | NUR ---
ABG done; results called to . Pt reports that her chest pain is 6/10. New order for morphine recieved.
[2024-04-19] MEDS ORDERED: Enoxaparin 40 MG/0.4 ML SYR SC SCH (09:00)
[2024-04-19] MEDS ORDERED: buPROPion HCL 150 MG TAB.SR.12H PO SCH (09:00)
[2024-04-19] MEDS ORDERED: Azithromycin 500 MG in NS 250 ML IV SCH (09:00)
[2024-04-19] MEDS ORDERED: Clopidogrel Bisulfate 75 MG Tab PO SCH (09:00)
[2024-04-19] MEDS ORDERED: Morphine Sulfate 4 MG/1 ML Injection IV ONE (09:00)
[2024-04-19] MEDS ORDERED: Ezetimibe 10 MG Tab PO SCH (09:00)
[2024-04-19] MEDS ORDERED: Potassium Chloride 10 Meq Tablet SA PO SCH (09:00)
[2024-04-19] MEDS ORDERED: Losartan Potassium 50 MG Tab PO SCH (09:00)
--- NOTE | 2024-04-19 09:24 | NUR ---
Pt was c/o numbness in both her arms. Off the bipap just briefly for her oral medications, which were given discriminately, only the neccessary ones. Toprol XL held last night due to low b/p, so it was instead given this morning and admin time changed to daily in the morning instead of bedtime. She is also c/o feeling dizzy. States her chest pressure is down from 6/10 to 4/10. Both sons Bill and Giovanni at the bedside.
--- NOTE | 2024-04-19 09:33 | NUR ---
Troponin is 6.
--- NOTE | 2024-04-19 12:24 | NUR ---
Wound care done while Dr. Bucio was in the room. Old dressing was removed, and photos taken for chart documentation. Pt tolerated very well. Pt stated that she feels urine leaking around the purewick, so complete bed bath was done. Removed purewick for activity. Assisted pt to sit on side of bed, while wearing bipap. She said that she would like to get up to the chair. After a couple of minutes, she wanted to switch to the nasal prongs, 2 l/min which she did and then transferred to [facility] to void, and then to recliner chair nearby, and she tolerated this very well. No c/o chest discomfort, and only mild dyspnea with activity. No anxiety.
[2024-04-19] MEDS ORDERED: ALPRAZolam 0.25 MG Tab PO PRN (15:15)
--- NOTE | 2024-04-19 16:25 | NUR ---
After CBG checked, noted 81. Pt states that she is hungry. Given crackers and cheese, and she is drinking her drink from earlier today.
--- NOTE | 2024-04-19 16:43 | NUR ---
Placed on bipap for rest before her effort of eating dinner.
[2024-04-20 03:30] VITALS: BP 114/53
[2024-04-20 04:26] LABS: Bun/Creatinine Ratio 21.4 (12.0-20.0); Calcium, Blood 9.4 mg/dL (8.5-10.1); Creatinine, Blood 0.75 mg/dL (0.40-1.00); Potassium, Blood 3.9 mmol/L (3.5-5.5)
--- NOTE | 2024-04-20 06:42 | NUR ---
SHIFT SUMMARY PATIENT ALERT AND ORIENTED X4. MEDICATED PER EMAR FOR RIGHT HIP PAIN. SHE HAS BEEN ON 2 LITERS O2 VIA NC WHILE AWAKE AND BIPAP WHILE SLEEPING AND NEEDED FOR RESPIRATORY SUPPORT. SPO2 >90%. VITAL SIGNS STABLE. NO ACUTE ISSUES NOTED OVERNIGHT. WILL CONTINUE TO MONITOR. CALL LIGHT WITHIN REACH.
--- NOTE | 2024-04-20 08:10 | NUR ---
Bedside report at 0715 this am. Pt was 100% spo2 while on 2 l/min, so O2 was decreased to 1 l/min. Pt assisted out of bed to sit in chair for breakfast at 0800. She is dyspneic and hypoxic at 87% spo2 with the activity, while on 1 l/min O2. She recovers to 93% and able to eat her breakfast after about 2 min, but she states that she is having dizzyness today. oxygen delivery increased to 2 l/min, which is her home dose. she is in chair now, eating and talking. spo2 95% on 2 l/min O2.
[2024-04-20 08:16] VITALS: BP 136/67
[2024-04-20] MEDS ORDERED: Metoprolol Succinate 50 MG TABCR PO SCH (09:00)
--- NOTE | 2024-04-20 10:33 | NUR ---
Lung sounds are noted to be diminished, and the pt states that she feels that her cough is weak and unable to bring up the secretions. She was given an incentive spirometer and flutter valve for pulmonary toilet. Educated on their use, and encouraged her to use them while awake. She is still sitting up in the chair, tolerating it well. IV azithromycin infiltration after 10 minutes of infusion this morning, pt c/o pain at site. IV was dc'd and new IV placed on the left upper arm, no complications with infusion. Saline locked at this time.
--- NOTE | 2024-04-20 11:41 | NUR ---
Pt has not had a BM since admission; offered bowel care to her, but she declined, saying, "Oh, it will come."
--- NOTE | 2024-04-20 13:10 | NUR ---
Pt is working with PT. She became anxious and dyspneic just after transferring to the bed,before the HOB was elevated. She felt better after sitting up.
--- NOTE | 2024-04-20 15:06 | NUR ---
Pt needed assist OOB to BSC to void. Used geriwalker, gait belt and Nurse assist, minimal needed. Back to bed and HOB elevated . Encouraged with pursed lip breathing for recovery. She managed well. Wound on the LLE was exposed, dressing no longer intact. Removed old dressing, cleansed with NS, applied alginate to the ulcer, covered with exudry, and secured with kerlex and MT spandage. Pt tolerated very well.
--- NOTE | 2024-04-20 15:48 | NUR ---
Pt had an upsetting phone call about her bank card, and afterwards had some dyspnea while lying in bed. Spoke with her and she was reassured that the card had not been fraudulently used. She states today has been quite exhausting for her, she did not sleep much last night, and she has been upset at least a couple of times. Given xanax at this time and repositioned to help with comfort and lighting to promote rest.
--- NOTE | 2024-04-20 16:38 | NUR ---
Pt sleeping on bipap.
[2024-04-20 18:24] VITALS: BP 141/65
[2024-04-20 20:06] VITALS: BP 112/60
[2024-04-21 03:31] LABS: PCO2 Arterial 68.3 mmHg (35-45); PO2 Arterial 67.5 mmHg (80-100)
[2024-04-21 03:34] VITALS: BP 106/60
[2024-04-21] MEDS ORDERED: Ipratropium/Albuterol SulF 2.5-0.5MG/3 ML Amp INH ONE (03:35)
--- NOTE | 2024-04-21 06:21 | NUR ---
Shift Summary- Anna had a good night- was placed on BIPAP at shift change because she appeared to be SOB. Took her off the BIPAP once I spoke to RT about the ABG for 04/21 in the AM. Anna on 2L nasal cannula for remainder of the night. ABG completed, and then RT placed pt back on BIPAP. VSS throughout night, oxygen saturations remain above 92%. Anna had anxiety and requested ativan and the BIPAP around 330am. It is clear the BIPAP provides comfort to her. Anna also requesting a flu vaccine- informed her we dont have those yet available- per pharmacy. Anna might be a good candidate for a home trilogy and a pulmonology referral. Will pass along to dayshift RN.
[2024-04-21 08:07] VITALS: BP 132/67
--- NOTE | 2024-04-21 10:46 | NUR ---
AM NOTE: PATIENT ALERT AND ORIENTED X4. SOFT SPOKEN. DENIES PAINS THIS AM. ABLE TO MOVE ALL EXTREMITIES. 2 PERSON TRANSFER FROM RECLINER TO BED WITH FWW AND GAIT BELT. WEAKNESS NOTED THROUGHOUT. WEARING 2L NASAL CANNULA UPON SHIFT START SATING ABOVE 95%. EVEN AND UNLABORED RESPIRATIONS AT REST. RESPIRATORY RATE RANGING FROM 22-26. UPON TRANSFER TO BED PATIENT BECOMES SHORT OF BREATH AND REQUESTING BIPAP. BIPAP AT THIS TIME, RESTING IN BED. LUNGS SOUNDING CLEAR AND DIM. OCCASIONAL COUGH. MEDICAL STATUS NO TELE. HR 70-80'S. EDEMA NOTED IN BLE. DENIES CHEST PAIN/PRESSURE/PALPITATIONS. LLE WOUND, SEE WOUND CARE ORDERS. CHANGED THIS SHIFT PER ORDERS. BOWEL TONES PRESENT. DENIES ABDOMINAL PAIN/NAUSEA. TOLERATING PO DIET. PILLS IN APPLESAUCE/YOGURT. RESTING IN BED AT THIS TIME WITH BIPAP. CALL LIGHT IN REACH. DENIES NEEDS.
[2024-04-21 11:43] VITALS: BP 114/92
--- NOTE | 2024-04-21 14:14 | NUR ---
PHYSICAL THERAPY IN ROOM AT THIS TIME. COCKTAIL SERVER CALLED BY THIS RN TO DISCUSS POSSIBILITIES OF HOME TRIOLOGY.
[2024-04-21 15:34] VITALS: BP 129/65
--- NOTE | 2024-04-21 16:05 | NUR ---
THIS RN TOOK BLOOD SUGAR READING ON BILATERAL FINGERS. SUGAR READING LOW ON BOTH HANDS. PATIENT PRESENTATION ALERT AND ORIENTED. PATIENT DENIES FEELING LOW BLOOD SUGAR. THIS RN TOOK SAMPLE FROM IV, WASTING 5ML OF BLOOD FIRST. VENOUS BLOOD SUGAR READING 90.
--- NOTE | 2024-04-21 18:23 | NUR ---
SHIFT SUMMARY: NO ACUTE CHANGES. CARE MANAGEMENT IN TO DISCUSS SETTING UP HOME TRILOGY. PATIENT EXPRESSING SADNESS SURROUNDING NEEDING MORE HELP AT HOME AND DEPENDING MORE ON BIPAP. CUT OUT STITCHER AND THIS RN IN FOR THERAPEUTIC LISTENING. PATIENT ON PHONE WITH SONS AND DAUGHTER IN [place]WS DISCUSSING PLAN FOR HOME HEALTH AND HOME BIPAP. VITAL SIGNS STABLE. SEE PREVIOUS NOTE ABOUT BLOOD SUGARS. DRESSING CHANGE COMPLETED TODAY. PATIENT ON BIPAP INTERMIT THROUGHOUT THE DAY NEEDED WHEN SOB. SITTING IN RECLINER AT THIS TIME WITH 2L NASAL CANNULA. CALL LIGHT IN REACH.
[2024-04-21 21:24] VITALS: BP 110/49
[2024-04-22 04:13] VITALS: BP 110/53
--- NOTE | 2024-04-22 06:57 | NUR ---
PT STABLE THROUGHOUT THE SHIFT. PT INTERMITTENTLY ON BIPAP AND O2 BY NASAL CANNULA. PT MAINTAINED GOOD O2 SATS WITH BOTH METHODS. PT DID SPEND THE MAJORITY OF THE SHIFT ON BIPAP AND TOLERATED WELL WITH ONE EPISODE OF MILD ANXIETY THAT RESOLVED WITHOUT MEDICATIONS. ALL OTHER VITAL SIGNS REMAIN WNL. LEFT ANKLE DRESSING REMAINS CLEAN/DRY/INTACT. PT HAS PUREWICK AND PRODUCING GOOD URINE OUTPUT. BLOOD SUGARS REMAIN STABLE.
[2024-04-22] MEDS ORDERED: Dextrose 50% 50 ML Syringe IV ONE (07:00)
[2024-04-22] MEDS ORDERED: Dextrose 50% 50 ML Syringe ONE (07:28)
[2024-04-22 07:41] VITALS: BP 114/75
[2024-04-22] MEDS ORDERED: D5W-1/2NS 1,000 ML IV SCH (07:55)
--- NOTE | 2024-04-22 09:49 | NUR ---
AM NOTE: PATIENT VERY ANXIOUS, RESTLESS, SWEATING AND CALLING OUT AT START OF SHIFT. THIS RN AND NOC RN AT BEDSIDE DOING REPORT. PATIENT COACHED THROUGH BREATHING AND BIPAP PLACED. BLOOD SUGAR TAKEN AND READING 27. D50 GIVEN VIA IV WITH TEACHER KINDERGARTEN AT BEDSIDE. SYMPTOMS RESOLVED AND PATIENT ABLE TO EAT BREAKFAST. BLOOD SUGAR RECHECKED AND READING 153. DR. SHEETS AWARE OF BLOOD SUGARS, SEE ORDERS. D5 1/2 NS INFUSING AT THIS TIME PER EMAR. Q2 BLOOD SUGARS IN PLACE. PATIENT REMAINS MEDICAL STATUS NO TELE. PPP. DENIES CHEST PAIN/PRESSURE/PALPITATIONS. ON 2L NASAL CANNULA SATING MID-HIGH 90'S WELL WEARING BIPAP / AT 25% FIO2 WHEN SOB OR SLEEPING. LUNGS SOUNDS DIMINISHED. CASE MANAGEMENT WORKING TO HELP GET HOME BIPAP. OCCASIONAL WEAK COUGH. DENIES SPUTUM. DENIES ABDOMINAL PAIN/NAUSEA. PILLS WITH APPLESAUCE. TOLERATING DIET AT THIS TIME. PURWICK IN PLACE. LEFT ANKLE WOUND CLEANED AND DRESSED BY THIS RN PER WOUND CARE ORDERS ON 04/21/24 DAY SHIFT. DRESSING REMAINS C/D/I. PATIENT RESTING IN BED AT THIS TIME WITH BIPAP IN PLACE. CALL LIGHT IN REACH.
[2024-04-22 10:37] LABS: Bun/Creatinine Ratio 24.3 (12.0-20.0); Calcium, Blood 9.5 mg/dL (8.5-10.1); Creatinine, Blood 0.87 mg/dL (0.40-1.00); Potassium, Blood 4.1 mmol/L (3.5-5.5)
[2024-04-22 11:25] VITALS: BP 127/64
[2024-04-22 15:08] VITALS: BP 148/63
--- NOTE | 2024-04-22 18:07 | NUR ---
SHIFT SUMMARY: PATIENT UP IN RECLINER THIS EVENING EATING DINNER. VITAL SIGNS REMAIN STABLE. ON 2L NASAL CANNULA. BIPAP ON STANDBY. NO TELE. HR 80'S. DENIES CHEST PAIN. CONTINUES TO BE SOB WITH MOVEMENTS AND AT TIMES NEEDING BIPAP TO HELP RECOVER. LEFT ANKLE PAIN THIS AFTERNOON THAT WAS IMPROVED WITH TYLENOL. DRESSING CHANGED TO TRY AND HELP ALLEVIATE PAIN SURROUNDING WOUND. UPDATED PICTURE TAKEN FOR CHART. SON IN TO VISIT, UPDATED BY THIS RN. Q2 BLOOD SUGARS RANGING FROM 115-153 THIS SHIFT. D5 1/2 NS INFUSING PER EMAR ORDERS. CALL LIGHT IN REACH. DENIES NEEDS.
[2024-04-22 20:18] VITALS: BP 139/57
[2024-04-22] MEDS ORDERED: Insulin Glargine-Yfgn 100 Unit/mL 3 ML SYR SC SCH (21:00)
[2024-04-23 04:09] VITALS: BP 123/52
--- NOTE | 2024-04-23 07:01 | NUR ---
PT REMAINED STABLE THROUGHOUT THE NIGHT. PT SPENT HALF THE SHIFT OOB TO CHAIR. PT REMAINS ON IVF D5 1/2 NS @75ML/HR TOLERATING WELL. BLOOD SUGARS REMAIN IN THE MID TO HIGH 100s. PT DID GET IRRITATED WITH THE FREQUENT BLOOD SUGAR CHECKS WHICH WERE CHANGED TO Q4 HOURS. PT ALSO HAD AN EPISODE OF IRRITABLITY AND ANXIETY BUT REFUSED MEDICATIONS FOR THAT, INSTEAD DEMANDING ANOTHER DOSE OF HER RESTLESS LEG MEDICATION. THAT EPISODE RESOLVED FAIRLY QUICKLY AND PT WENT BACK TO SLEEP. NO FURTHER INCIDENTS THROUGH THE SHIFT.
[2024-04-23 07:25] VITALS: BP 124/64
--- NOTE | 2024-04-23 09:27 | NUR ---
DR. SHEETS BY THIS AM. ORDERS TO CHECK BLOOD SUGAR POST BREAKFAST AND IF BLOOD SUGAR IS ABOVE [address] D5 1/2 NORMAL SALINE ON STANDBY AND RECHECK BLOOD SUGAR AGAIN IN ONE HOUR. BLOOD SUGAR AT 0900 POST BREAKFAST IS 121. D5 1/2 NS PLACED ON STANDBY. WILL RECHECK BLOOD SUGAR AT [address] SHEETS. SON AT BEDSIDE THIS AM. PATIENT UP IN RECLINER ON 2L NASAL CANNULA SATING ABOVE 95%. DENIES PAINS. HR 60-70'S. SBP 120'S. LUNGS SOUNDS DIMINISHED. LEFT ANKLE DRESSING C/D/I. PATIENT PLAYING GAMES ON PHONE AT THIS TIME IN RECLINER. CALL LIGHT IN REACH.
--- NOTE | 2024-04-23 10:20 | NUR ---
THIS RN UPDATED DR. SHEETS ON RECENT BLOOD SUGAR WITH D5 1/2 NS DRIP ON STANDBY. ORDERS TO DISCONTINUE D5 1/2 NS AND CONTINUE TO MONITOR CBG Q2 AT THIS TIME. ORDERS IN PLACE.
[2024-04-23 11:26] VITALS: BP 138/66
--- NOTE | 2024-04-23 14:42 | NUR ---
PATIENT TRANSFER TO MEDICAL. NO ACUTE CHANGES. REPORT GIVEN TO MED FLOOR RN. RT TO HELP WITH BIPAP TRANSFER. PATIENT DENIES NEED FOR THIS RN TO CALL SON BILL TO UPDATE ON TRANSFER. PATIENT TRANSFERRED VIA WHEELCHAIR WITH 2L NASAL CANNULA WITH ALL PERSONAL BELONGINGS, CHART AND HOSPITAL MEDICATIONS.
[2024-04-23 15:51] VITALS: BP 145/77
--- NOTE | 2024-04-23 18:04 | NUR ---
SHIFT SUMMARY PT TRANSFERED FROM PCU 7 THIS SHIFT AND ARRIVED TO ROOM AROUND 1300. PT WAS ORINATED TO ROOM. PT NOTED TO BE ASSIST X1 WITH FWW FOR TRANSFERS AND NOTED TO BE UP TO CHAIR THROUGHT THIS SHIFT. PT IS ON 2L/NC WHICH IS PT BASELINE AT HOME. PT DOES UTILIZE BIPAP AND NOC PER REPORT GIVEN BY RN IN PCU. PT NOTED TO BE ON CONTACT PERCAUTIONS FOR MRSA. PT NOTED TO HAVE WOUND TO LLE. DSG CHANGES ARE ORDERED FOR TUE, THURS, AND SAT. DSG IS CLEAN DRY AND INTACT AT THIS TIME. PLAN IS FOR PT TO DC HOME WITH HOME HEALTH FOR WOUND CARE AND THERAPY. PT IS AWAITING AUTH FOR TRILAGY AND WILL DC ONCE PT RECIEVES. PT IS A&OX4 AND CALLS APPROPRIATE FOR HELP. PT NOTED TO HAVE URGENCY INCONT.
[2024-04-23 19:43] VITALS: BP 126/81
[2024-04-24 04:04] VITALS: BP 105/61
--- NOTE | 2024-04-24 07:19 | NUR ---
SHIFT SUMMARY PT IS A&OX4, IRRITABLE AND ANXIOUS. VSS ON 2L NC, AND BIPAP AT NOC OR WHEN ANXIOUS AND FEELS SHE CAN'T GET ENOUGH AIR. +2 BLE EDEMA. DENIES PAIN. X1 ASSIST TO BSC WITH FWW. VOIDING IN BSC, HAS SOME STRESS INCONTINENCE AND URGENCY. NO BM THIS SHIFT. PT UP IN CHAIR AT BEGINNING OF SHIFT. TOLERATING A HEART HEALTHY DIET. TAKES MEDS WHOLE IN APPLESAUCE. DRESSING TO L ANKLE, C/D/I. CONTACT PRECAUTIONS MAINTAINED FOR MRSA IN HER WOUND. BED IN LOWEST POSITION, CALL LIGHT WITHIN REACH.
[2024-04-24 08:03] VITALS: BP 129/49
--- NOTE | 2024-04-24 18:52 | NUR ---
DISCHARGE SUMMARY PT DC THIS SHIFT DC INSTRUCTION GONE OVER WITH PT WHOM STATED UNDERSTANDING. PT WAS EXCORTED TO PRIVATE VIA WHEELCHAIR AND SENIOR PROCESS ANALYST.
== END 2024-04-24 17:44 | disposition home health service (06) | DRG 871 ==
LOC: ER 20:52 → PCU 04-18 04:29 → ERHOLD 04-18 04:29 → PCU 04-18 11:11 → MEDS 04-23 13:00 → ENPENDDIS 04-24 11:47 → MEDS 04-24 17:44
PROVIDERS: Internal Medicine; Student in an Organized Health Care Education/Training Program; ADMIT Student in an Organized Health Care Education/Training Program
PROC: 5A09357 Assistance with Respiratory Ventilation, Less than 24 Consecutive Hours, Continuous Positive Airway Pressure (ICD-10-PCS; 2024-04-18)
PROC: 3E03329 Introduction of Other Anti-infective into Peripheral Vein, Percutaneous Approach (ICD-10-PCS; 2024-04-18)
PROC: 4A133R1 Monitoring of Arterial Saturation, Peripheral, Percutaneous Approach (ICD-10-PCS; principal; 2024-04-19)
DX: A41.9 Sepsis, unspecified organism (principal); J18.9 Pneumonia, unspecified organism; J96.21 Acute and chronic respiratory failure with hypoxia; J96.22 Acute and chronic respiratory failure with hypercapnia; I50.32 Chronic diastolic (congestive) heart failure; E66.2 Morbid (severe) obesity with alveolar hypoventilation; G25.81 Restless legs syndrome; M19.90 Unspecified osteoarthritis, unspecified site; I11.0 Hypertensive heart disease with heart failure; K21.9 Gastro-esophageal reflux disease without esophagitis; I27.20 Pulmonary hypertension, unspecified; F41.8 Other specified anxiety disorders; R65.20 Severe sepsis without septic shock; Z96.653 Presence of artificial knee joint, bilateral; E11.649 Type 2 diabetes mellitus with hypoglycemia without coma; Z68.35 Body mass index [BMI] 35.0-35.9, adult; Z99.81 Dependence on supplemental oxygen; Z90.89 Acquired absence of other organs; Z86.14 Personal history of Methicillin resistant Staphylococcus aureus infection; Z98.890 Other specified postprocedural states; Z90.710 Acquired absence of both cervix and uterus; Z86.73 Personal history of transient ischemic attack (TIA), and cerebral infarction without residual deficits; Z88.8 Allergy status to other drugs, medicaments and biological substances; Z79.4 Long term (current) use of insulin; Z79.02 Long term (current) use of antithrombotics/antiplatelets; Z79.2 Long term (current) use of antibiotics; Z79.899 Other long term (current) drug therapy
CPT/HCPCS: 0241U; 36415; 36600; 71045; 71260; 80048; 80053; 82803; 82947; 83036; 83880; 84145; 84484; 85025; 87040; 93005; 93010; 93308; 93321; 94640; 94644; 94660; 94664; 94760; 94762; 96365-59; 96375-59; 97110; 97116-CQ; 97162; 97165; 97530; 97530-CQ; 99285-25; A9270; J0456; J0696; J1650; J1815; J1940; J2060; J2270; J3370; J7040; J7042; J7050; Q9967

== ENCOUNTER 2024-05-01 03:22 | Day surgery (SDC) | payer MEDICARE, OTHER ==
[~2024-05-01 03:22] MED LIST changes: +FARXIGA5 MG PO; +VICTOZA 3-0.6 MG/0.2 SC
[2024-05-01] MEDS ORDERED: Lidocaine HCl 4% Cream 5 GM ONE (14:57)
== END 2024-05-01 23:00 | disposition home or self-care (01) ==
LOC: WOUND 03:22
DX: T81.31XA Disruption of external operation (surgical) wound, not elsewhere classified, initial encounter (principal); E11.40 Type 2 diabetes mellitus with diabetic neuropathy, unspecified; I11.0 Hypertensive heart disease with heart failure; I50.9 Heart failure, unspecified
CPT/HCPCS: A6196; A9270

== ENCOUNTER 2024-05-06 22:18 | Inpatient (IN) | payer MEDICARE, OTHER ==
[~2024-05-06] VITALS: Ht 162.6 cm; Wt 90.7 kg
[~2024-05-06 22:18] MED LIST changes: +FURO20 PO; -FURO40 PO; -K-Dur10 MEQ PO; +POTCHL20ER PO; -VICTOZA 3-0.6 MG/0.2 SC
[2024-05-06] MEDS ORDERED: Ondansetron HCl 2 MG / ML 2ML Vial IV PRN (22:35)
[2024-05-06 22:38] LABS: BASOPHILS ABSOLUTE AUTO 0.04 K/mm3 (0.00-0.23); BASOPHILS PERCENT AUTO 1 % (0-2); EOSINOPHILS ABSOLUTE AUTO 0.13 K/mm3 (0.00-0.68); EOSINOPHILS PERCENT AUTO 2 % (0-6); Hematocrit 25.5 % (33.0-51.0); Hemoglobin 7.8 g/dL (11.5-16.0); IMMATURE GRAN ABSOLUTE AUTO 0.04 K/mm3 (0.00-0.10); IMMATURE GRAN PERCENT AUTO 1 % (0-1); LYMPHOCYTES PERCENT AUTO 22 % (21-46); MONOCYTES ABSOLUTE AUTO 0.73 K/mm3 (0.16-1.47); MONOCYTES PERCENT AUTO 8 % (4-13); Mean Corpuscular HGB 26.5 pg (26.0-34.0); Mean Corpuscular HGB Conc 30.6 g/dL (31.5-36.5); Mean Corpuscular Volume 87 fL (80-100); Mean Platelet Volume 8.7 fL (9.1-12.4); NEUTROPHILS ABSOLUTE AUTO 5.96 K/mm3 (1.96-9.15); NEUTROPHILS PERCENT AUTO 68 % (41-73); Platelet Count 365 K/mm3 (150-400); RDW Coefficient Variation 14.7 % (11.7-14.2); RDW Standard Deviation 47.1 fL (35.1-46.3); Red Blood Cell Count 2.94 M/mm3 (3.80-5.20)
[2024-05-06 22:57] LABS: Albumin, Blood 2.5 g/dL (3.4-5.0); Albumin/Globulin Ratio 0.7 (0.8-1.8); Bilirubin, Total 0.3 mg/dL (0.1-1.0); Bun/Creatinine Ratio 55.4 (12.0-20.0); Calcium, Blood 8.6 mg/dL (8.5-10.1); Creatinine, Blood 1.21 mg/dL (0.40-1.00); Globulin, Blood 3.5 g/dL (2.2-4.0); Potassium, Blood 4.3 mmol/L (3.5-5.5)
[2024-05-06 23:21] LABS: Base Excess Venous 5.3 mmol/L; Bicarbonate Venous 28.4 mmol/L (24.0-30.0); pH Blood Venous 7.42 (7.34-7.37)
[2024-05-07] VITALS (13 sets, daily range): BP systolic 81–106; BP diastolic 45–68
[2024-05-07] MEDS ORDERED: NS 1,000 ML IV SCH ×4 (00:45→08:15)
[2024-05-07] MEDS ORDERED: Acetaminophen 325 MG TABLET PO PRN (01:55)
[2024-05-07] MEDS ORDERED: Ondansetron 4 MG TAB PO PRN (02:20)
[2024-05-07] MEDS ORDERED: FLU VACC TS2024-25(6MOS UP)/PF 45 MCG/0.5 ML SYRINGE IM ONE (02:25)
[2024-05-07] MEDS ORDERED: Docusate Sodium 100 MG Cap PO PRN (02:25)
[2024-05-07] MEDS ORDERED: Mometasone/Formoterol MDI 200/5 mcg 13 GM INH SCH (03:25)
[2024-05-07] MEDS ORDERED: Albuterol 2.5 MG/3 ML VIAL INH PRN (04:05)
[2024-05-07 05:06] LABS: BASOPHILS ABSOLUTE AUTO 0.03 K/mm3 (0.00-0.23); BASOPHILS PERCENT AUTO 0 % (0-2); EOSINOPHILS ABSOLUTE AUTO 0.07 K/mm3 (0.00-0.68); EOSINOPHILS PERCENT AUTO 1 % (0-6); Hematocrit 22.9 % (33.0-51.0); IMMATURE GRAN ABSOLUTE AUTO 0.04 K/mm3 (0.00-0.10); IMMATURE GRAN PERCENT AUTO 1 % (0-1); LYMPHOCYTES ABSOLUTE AUTO 1.73 K/mm3 (0.84-5.20); LYMPHOCYTES PERCENT AUTO 22 % (21-46); MONOCYTES ABSOLUTE AUTO 0.53 K/mm3 (0.16-1.47); MONOCYTES PERCENT AUTO 7 % (4-13); Mean Corpuscular HGB 26.7 pg (26.0-34.0); Mean Corpuscular HGB Conc 30.6 g/dL (31.5-36.5); Mean Corpuscular Volume 87 fL (80-100); Mean Platelet Volume 9.1 fL (9.1-12.4); NEUTROPHILS ABSOLUTE AUTO 5.37 K/mm3 (1.96-9.15); NEUTROPHILS PERCENT AUTO 69 % (41-73); Platelet Count 323 K/mm3 (150-400); RDW Coefficient Variation 14.7 % (11.7-14.2); RDW Standard Deviation 47.5 fL (35.1-46.3); Red Blood Cell Count 2.62 M/mm3 (3.80-5.20); White Blood Cell Count 7.77 K/mm3 (4.00-11.30)
[2024-05-07 05:42] LABS: Albumin, Blood 2.4 g/dL (3.4-5.0); Albumin/Globulin Ratio 0.8 (0.8-1.8); Bilirubin, Total 0.3 mg/dL (0.1-1.0); Bun/Creatinine Ratio 64.9 (12.0-20.0); Calcium, Blood 8.5 mg/dL (8.5-10.1); Creatinine, Blood 1.31 mg/dL (0.40-1.00); Globulin, Blood 3.1 g/dL (2.2-4.0); Potassium, Blood 4.3 mmol/L (3.5-5.5); Total Protein, Blood 5.5 g/dL (6.4-8.2)
[2024-05-07] MEDS ORDERED: Pantoprazole Sodium 40 MG Tab PO SCH (06:00)
--- NOTE | 2024-05-07 06:40 | NUR ---
PT ARRIVED TO FLOOR ON BIPAP, OXYGEN SATS UPPER 90'S. PAINFUL AND NAUSEAS, PRN PAIN MED AND ZOFRAN GIVEN. PT FELT RELEIF. COMPLAINS OF ABDOMINAL PAIN, BRUSING TO ABDOMEN, PT UNSURE OF WHEN OR HOW IT HAPPENED. SWITCHED TO SUPPLEMENTAL OXYGEN VIA NC @ 2L, O2 SATS UPPER 90'S.
[2024-05-07] MEDS ORDERED: Insulin Human Lispro 100 Units/ML 3ML Syringe SC SCH (07:30)
[2024-05-07] MEDS ORDERED: NS 500 ML IV ONE (08:00)
[2024-05-07] MEDS ORDERED: Clopidogrel Bisulfate 75 MG Tab PO SCH (09:00)
[2024-05-07] MEDS ORDERED: Ezetimibe 10 MG Tab PO SCH (09:00)
[2024-05-07] MEDS ORDERED: buPROPion HCL 150 MG TAB.SR.12H PO SCH (09:00)
[2024-05-07 09:58] LABS: Percent Saturation 37.4 % (15.0-50.0)
[2024-05-07] MEDS ORDERED: N-Acetylcysteine 600 MG CAP PO SCH (10:00)
[2024-05-07] MEDS ORDERED: NS 1,000 ML BAG IR ONE (10:40)
[2024-05-07] MEDS ORDERED: NS 250 ML IV SCH (10:45)
[2024-05-07] MEDS ORDERED: LORazepam 2 MG/ML 1ML Injection IV PRN (15:25)
[2024-05-07] MEDS ORDERED: LORazepam 2 MG/ML 1ML Injection IV ONE (15:30)
[2024-05-07] MEDS ORDERED: ALPRAZolam 0.25 MG Tab PO PRN (15:30)
--- NOTE | 2024-05-07 19:37 | NUR ---
SHIFT SUMMARY. PATIENT IS A&OX3-4. PATIENT UP WITH 1P ASSIST. PATIENT C/O UPSET STOMACH X2-MEDICATED PER EMAR. PATIENT C/O NAUSEA T/O DAY; DENIED NEED FOR PRN ANITNAUSEA MEDICATION UNTIL AROUND 1800-PATIENT HAD 1000ML OF EMESIS. PATIENT HAS BEEN RESTING T/O DAY. PATIENT IS PLEASANT AND COOPERATIVE WITH CARE. HEPARIN DC'd THIS EVENING AND PO POTASSIUM GIVEN FOR POTASSIUM LEVEL OF 3.3. BED IS LOCKED IN THE LOWEST POSITION WITH CALL LIGHT IN REACH. REPORT GIVEN TO ANA GREENE.
--- NOTE | 2024-05-07 20:14 | NUR ---
SHIFT SUMMARY. PATIENT A&OX4. PATIENT IS CONCRETE ON HER DECISIONS. PATIENT HAS BEEN VERY ANXIOUS T/O DAY-PRN ATIVAN X1. PATIENT REFUSED CAT SCAN TODAY. PATIENTS SON IN TO VISIT. PATIENT HYPOTENSIVE TODAY-500ML NS GIVEN PER ORDERS. PATIENT RECEIVED 1 OF 2 UNITS OF PRBC'S THIS SHIFT. PATIENTS IV FAILED THIS EVENING-BLOOD SENT BACK TO BLOOD BANK-NEW BLOOD SLIP SENT TO ACC TODAY. PATIENT REMOVED HER BIPAP X2 THIS SHIFT-PATIENT EDUCATED ON IMPORTANCE OF CPAP OR TO HAVE HER OXYGEN ON. BED IS LOCKED IN THE LOWEST POSITION WITH CALL LIGHT IN REACH. REPORT GIVEN TO CLASSIFICATIONS OFFICER CC/CM NURSE ANA.
[2024-05-07] MEDS ORDERED: Pramipexole DI-HCL 1 Mg Tab PO SCH (21:00)
[2024-05-08 00:44] VITALS: BP 98/59
[2024-05-08 01:15] VITALS: BP 94/54
[2024-05-08 02:04] VITALS: BP 108/58
--- NOTE | 2024-05-08 04:06 | NUR ---
O2 MASK IN USE. PT RESISTANT TO MASK APPLICATION. APPLIED WITH MUCH ENCOURAGEMENT. IV INSERTED TO RIGHT ANTICUBITAL WITH MUCH ENCOURAGEMENT. 2ND UNIT PRBC COMPLETED. O2 MASK REMOVED AT PT REQUEST. WILL CONTINUE TO MONITOR. OS SATS 100% WITH O2 2L NC.
[2024-05-08 04:41] LABS: BASOPHILS ABSOLUTE AUTO 0.04 K/mm3 (0.00-0.23); BASOPHILS PERCENT AUTO 0 % (0-2); EOSINOPHILS ABSOLUTE AUTO 0.21 K/mm3 (0.00-0.68); EOSINOPHILS PERCENT AUTO 2 % (0-6); Hematocrit 23.3 % (33.0-51.0); Hemoglobin 7.4 g/dL (11.5-16.0); IMMATURE GRAN ABSOLUTE AUTO 0.08 K/mm3 (0.00-0.10); IMMATURE GRAN PERCENT AUTO 1 % (0-1); LYMPHOCYTES ABSOLUTE AUTO 2.34 K/mm3 (0.84-5.20); LYMPHOCYTES PERCENT AUTO 26 % (21-46); MONOCYTES ABSOLUTE AUTO 0.56 K/mm3 (0.16-1.47); MONOCYTES PERCENT AUTO 6 % (4-13); Mean Corpuscular HGB 27.7 pg (26.0-34.0); Mean Corpuscular HGB Conc 31.8 g/dL (31.5-36.5); Mean Corpuscular Volume 87 fL (80-100); Mean Platelet Volume 8.8 fL (9.1-12.4); NEUTROPHILS ABSOLUTE AUTO 5.68 K/mm3 (1.96-9.15); NEUTROPHILS PERCENT AUTO 64 % (41-73); Platelet Count 253 K/mm3 (150-400); RDW Coefficient Variation 14.8 % (11.7-14.2); Red Blood Cell Count 2.67 M/mm3 (3.80-5.20); White Blood Cell Count 8.91 K/mm3 (4.00-11.30)
[2024-05-08 06:20] LABS: Bun/Creatinine Ratio 82.2 (12.0-20.0); Calcium, Blood 8.4 mg/dL (8.5-10.1); Creatinine, Blood 1.18 mg/dL (0.40-1.00); Potassium, Blood 3.6 mmol/L (3.5-5.5)
[2024-05-08 07:06] VITALS: BP 96/77
[2024-05-08] MEDS ORDERED: Folic Acid 1 MG TAB PO SCH (09:00)
[2024-05-08] MEDS ORDERED: ALPRAZolam 0.25 MG Tab PO PRN (10:05)
[2024-05-08] MEDS ORDERED: LORazepam 2 MG/ML 1ML Injection IV ONE (10:05)
[2024-05-08 10:25] LABS: Hematocrit 22.5 % (33.0-51.0); Hemoglobin 7.2 g/dL (11.5-16.0)
[2024-05-08 10:29] LABS: Adenovirus Not Detected (NOT DETECT); Bordetella pertussis Not Detected (NOT DETECT); Chlamydophila pneumoniae Not Detected (NOT DETECT); Coronavirus 229E Not Detected (NOT DETECT); Coronavirus HKU1 Not Detected (NOT DETECT); Coronavirus NL63 Not Detected (NOT DETECT); Coronavirus OC43 Not Detected (NOT DETECT); Human Metapneumovirus Not Detected (NOT DETECT); Human Rhinovirus/Enterovirus Not Detected (NOT DETECT); Influenza A/2009-H1 Not Detected (NOT DETECT); Influenza A/H1 Not Detected (NOT DETECT); Influenza A/H3 Not Detected (NOT DETECT); Influenza B Not Detected (NOT DETECT); Mycoplasma pneumoniae Not Detected (NOT DETECT); Parainfluenza Virus 1 Not Detected (NOT DETECT); Parainfluenza Virus 2 Not Detected (NOT DETECT); Parainfluenza Virus 3 Not Detected (NOT DETECT); Parainfluenza Virus 4 Not Detected (NOT DETECT); Respiratory Syncytial Virus Not Detected (NOT DETECT); SARS-Cov-2 (COVID-19), BioFire Not Detected (NOT DETECT)
[2024-05-08] MEDS ORDERED: BASAGLAR K100 UNIT/8 SC (11:12)
[2024-05-08 15:02] VITALS: BP 109/47
[2024-05-08 16:24] LABS: Hematocrit 23.1 % (33.0-51.0); Hemoglobin 7.4 g/dL (11.5-16.0)
[2024-05-08] MEDS ORDERED: Pantoprazole Sodium 40 MG Injection IV SCH (16:30)
[2024-05-08] MEDS ORDERED: VICTOZA 3-0.6 MG/0.2 SC (17:22)
--- NOTE | 2024-05-08 18:28 | NUR ---
VERY HIGH ANXIETY, MEDICATED WITH XANAX AND ATIVAN FOR CT, CT WAS DONE, RIGHT IV NOT FLUSHING, REPORTED TO XIOMARA GREENE, PATIENT NEEDS POWERGLIDE ACCESS, ISOLATION DISCONTINUED, NEGATIVE COVID, STILL NEED STOOL SAMPLE, PERIWIK IN PLACE, CALL LIGHT WITH IN REACH, PATIENT NOT IMPULSIVE, WILL RELAY TO PM RN
[2024-05-08 19:26] VITALS: BP 110/44
[2024-05-08] MEDS ORDERED: Docusate Sodium 100 MG Cap PO SCH (21:00)
[2024-05-09] VITALS (26 sets, daily range): BP systolic 83–131; BP diastolic 33–110
--- NOTE | 2024-05-09 03:41 | NUR ---
NEW IV PLACED TO LEFT ARM. PT MORE COOPERATIVE [facility] STA[facility]. PT RESTNG QUIETLY NO DISTRESS NOTED.
[2024-05-09 06:03] LABS: BASOPHILS ABSOLUTE AUTO 0.03 K/mm3 (0.00-0.23); BASOPHILS PERCENT AUTO 0 % (0-2); EOSINOPHILS ABSOLUTE AUTO 0.22 K/mm3 (0.00-0.68); EOSINOPHILS PERCENT AUTO 3 % (0-6); Hematocrit 20.3 % (33.0-51.0); Hemoglobin 6.4 g/dL (11.5-16.0); IMMATURE GRAN ABSOLUTE AUTO 0.05 K/mm3 (0.00-0.10); IMMATURE GRAN PERCENT AUTO 1 % (0-1); LYMPHOCYTES ABSOLUTE AUTO 1.43 K/mm3 (0.84-5.20); LYMPHOCYTES PERCENT AUTO 21 % (21-46); MONOCYTES PERCENT AUTO 6 % (4-13); Mean Corpuscular HGB 27.7 pg (26.0-34.0); Mean Corpuscular HGB Conc 31.5 g/dL (31.5-36.5); Mean Corpuscular Volume 88 fL (80-100); Mean Platelet Volume 8.7 fL (9.1-12.4); NEUTROPHILS ABSOLUTE AUTO 4.66 K/mm3 (1.96-9.15); NEUTROPHILS PERCENT AUTO 69 % (41-73); Platelet Count 245 K/mm3 (150-400); RDW Coefficient Variation 15.3 % (11.7-14.2); RDW Standard Deviation 48.9 fL (35.1-46.3); Red Blood Cell Count 2.31 M/mm3 (3.80-5.20); White Blood Cell Count 6.79 K/mm3 (4.00-11.30)
[2024-05-09 06:40] LABS: Bun/Creatinine Ratio 57.1 (12.0-20.0); Calcium, Blood 8.7 mg/dL (8.5-10.1); Creatinine, Blood 0.91 mg/dL (0.40-1.00); Potassium, Blood 3.9 mmol/L (3.5-5.5)
--- NOTE | 2024-05-09 18:28 | NUR ---
2 UNIT PRBC INFUSED, HGB 6.4, PALLIATIVE CARE CONSULT STARTED, DR LEON CONSULTED, PATIENT IS NOT A CANDIDATE FOR SURGERY OR HAS ANY SYMPTOMS TO NEED A EGD, CLEAR LIQUIDS DIET, LEFT AC IV VERY POSITIONAL, WHOLE SITE CLEANED X2, MEDICATED WITH XANAX X2, NO INSULIN COVERAGE NEEDED, RESPOSITIONED THROUGH OUT THE SHIFT, PATENT ADJUSTS SELF IN BED, PATIENT HAS APERIWIK PER PATIENT REQUEST/INCONTINENCE. CALL LIGHT WITH IN REACH, WILL RELAY TO PM JC
--- NOTE | 2024-05-10 04:33 | NUR ---
RN TO RN PATIENT TRANSFER. REPORT TAKEN FROM ANA GREENE.
[2024-05-10 04:53] LABS: BASOPHILS ABSOLUTE AUTO 0.04 K/mm3 (0.00-0.23); BASOPHILS PERCENT AUTO 1 % (0-2); EOSINOPHILS ABSOLUTE AUTO 0.19 K/mm3 (0.00-0.68); EOSINOPHILS PERCENT AUTO 4 % (0-6); Hemoglobin 8.6 g/dL (11.5-16.0); IMMATURE GRAN ABSOLUTE AUTO 0.06 K/mm3 (0.00-0.10); IMMATURE GRAN PERCENT AUTO 1 % (0-1); LYMPHOCYTES PERCENT AUTO 24 % (21-46); MONOCYTES PERCENT AUTO 6 % (4-13); Mean Corpuscular HGB 27.7 pg (26.0-34.0); Mean Corpuscular HGB Conc 31.9 g/dL (31.5-36.5); Mean Corpuscular Volume 87 fL (80-100); Mean Platelet Volume 8.4 fL (9.1-12.4); NEUTROPHILS ABSOLUTE AUTO 3.57 K/mm3 (1.96-9.15); NEUTROPHILS PERCENT AUTO 65 % (41-73); Platelet Count 247 K/mm3 (150-400); RDW Standard Deviation 50.2 fL (35.1-46.3); White Blood Cell Count 5.46 K/mm3 (4.00-11.30)
[2024-05-10 05:12] LABS: Albumin, Blood 2.5 g/dL (3.4-5.0); Anion Gap 8 mmol/L (3-11); Blood Urea Nitrogen 24 mg/dL (8-24); Bun/Creatinine Ratio 31.7 (12.0-20.0); CO2, Blood 27 mmol/L (21-32); Calcium, Blood 8.9 mg/dL (8.5-10.1); Chloride, Blood 114 mmol/L (98-108); Creatinine, Blood 0.76 mg/dL (0.40-1.00); Glomerular Filtration Rate 80 (60-); Glucose, Blood 97 mg/dL (70-99); Phosphorus, Blood 2.5 mg/dL (2.5-4.9); Sodium, Blood 145 mmol/L (136-145)
[2024-05-10 07:43] VITALS: BP 124/56
[2024-05-10] MEDS ORDERED: Bisacodyl 10 MG Supp PR ONE (14:00)
[2024-05-10] MEDS ORDERED: DULERA 200 MCG-13 GM INH (14:08)
[2024-05-10] MEDS ORDERED: FOLI1 PO (14:08)
[2024-05-10] MEDS ORDERED: ALBU90OI INH (14:09)
[2024-05-10] MEDS ORDERED: ALBU2.5V5 INH (14:09)
[2024-05-10] MEDS ORDERED: PANT40 PO (14:10)
[2024-05-10] MEDS ORDERED: IPRAT-ALBUT 0.5-3 ML INH (14:10)
[2024-05-10 15:04] VITALS: BP 111/61
[2024-05-10] MEDS ORDERED: Glycerin Adult Supp 1 EA PR STA (15:07)
[2024-05-10] MEDS ORDERED: Polyethylene Glycol 3350 17 gm PO STA (15:16)
--- NOTE | 2024-05-10 16:55 | NUR ---
DISCHARGE INSTRUCTIONS GIVEN TO PATIENT AND SON, BOTH STATED UNDERSTANDING AND DENIED FURTHER QUESTIONS, PATIENT ON BSC HAVING A BM, SUPP X2 GIVEN, ONCE PATIENT HAS BM SHE IS READY TO DISCHARGE
[2024-05-10] MEDS ORDERED: MIRALAX17 GM PO (17:03)
== END 2024-05-10 17:16 | disposition home health service (06) | DRG 811 ==
LOC: ER 22:18 → MEDS 22:19
PROVIDERS: Emergency Medicine; Internal Medicine; Student in an Organized Health Care Education/Training Program; ADMIT Internal Medicine
PROC: 30233N1 Transfusion of Nonautologous Red Blood Cells into Peripheral Vein, Percutaneous Approach (ICD-10-PCS; principal; 2024-05-07)
PROC: 5A09357 Assistance with Respiratory Ventilation, Less than 24 Consecutive Hours, Continuous Positive Airway Pressure (ICD-10-PCS; 2024-05-07)
DX: D62 Acute posthemorrhagic anemia (principal); J96.21 Acute and chronic respiratory failure with hypoxia; J96.22 Acute and chronic respiratory failure with hypercapnia; N17.9 Acute kidney failure, unspecified; E66.2 Morbid (severe) obesity with alveolar hypoventilation; I50.32 Chronic diastolic (congestive) heart failure; L97.929 Non-pressure chronic ulcer of unspecified part of left lower leg with unspecified severity; E86.0 Dehydration; I27.21 Secondary pulmonary arterial hypertension; J44.9 Chronic obstructive pulmonary disease, unspecified; E53.8 Deficiency of other specified B group vitamins; I11.0 Hypertensive heart disease with heart failure; F32.A Depression, unspecified; F41.9 Anxiety disorder, unspecified; K21.9 Gastro-esophageal reflux disease without esophagitis; G25.81 Restless legs syndrome; K59.00 Constipation, unspecified; I44.7 Left bundle-branch block, unspecified; K57.30 Diverticulosis of large intestine without perforation or abscess without bleeding; E11.9 Type 2 diabetes mellitus without complications; Z86.73 Personal history of transient ischemic attack (TIA), and cerebral infarction without residual deficits; Z86.14 Personal history of Methicillin resistant Staphylococcus aureus infection; Z88.8 Allergy status to other drugs, medicaments and biological substances; Z79.899 Other long term (current) drug therapy; Z79.01 Long term (current) use of anticoagulants; Z98.890 Other specified postprocedural states; Z90.89 Acquired absence of other organs; Z90.710 Acquired absence of both cervix and uterus
CPT/HCPCS: 0202U; 36415; 36430; 71045; 71260; 74177; 80048; 80053; 80069; 82607; 82728; 82746; 82803; 82947; 83540; 83550; 83690; 83880; 84145; 84484; 85014; 85018; 85025; 86850; 86900; 86901; 86923; 93005; 93010; 94640; 94660; 94664; 94762; 96360; 96361; 96374; 97110; 97162; 97530; 99285-25; A9270; G0378; J2060; J2405; J2470; J7030; J7040; J7050; P9016; Q9967

== ENCOUNTER → 2024-05-17 | Outpatient (CLI) | payer MEDICARE, OTHER ==
[~2024-05-17] MED LIST changes: +ALBU2.5V5 INH; +BASAGLAR K100 UNIT/8 SC; +DULERA 200 MCG-13 GM INH; +FOLI1 PO; +IPRAT-ALBUT 0.5-3 ML INH; +MIRALAX17 GM PO; +VICTOZA 3-0.6 MG/0.2 SC
[2024-05-17 19:52] LABS: BASOPHILS ABSOLUTE AUTO 0.04 K/mm3 (0.00-0.23); BASOPHILS PERCENT AUTO 1 % (0-2); EOSINOPHILS ABSOLUTE AUTO 0.23 K/mm3 (0.00-0.68); EOSINOPHILS PERCENT AUTO 3 % (0-6); Hematocrit 29.3 % (33.0-51.0); Hemoglobin 9.1 g/dL (11.5-16.0); IMMATURE GRAN ABSOLUTE AUTO 0.03 K/mm3 (0.00-0.10); IMMATURE GRAN PERCENT AUTO 0 % (0-1); LYMPHOCYTES ABSOLUTE AUTO 1.26 K/mm3 (0.84-5.20); LYMPHOCYTES PERCENT AUTO 17 % (21-46); MONOCYTES ABSOLUTE AUTO 0.47 K/mm3 (0.16-1.47); MONOCYTES PERCENT AUTO 6 % (4-13); Mean Corpuscular HGB 27.2 pg (26.0-34.0); Mean Corpuscular HGB Conc 31.1 g/dL (31.5-36.5); Mean Corpuscular Volume 88 fL (80-100); Mean Platelet Volume 8.8 fL (9.1-12.4); NEUTROPHILS ABSOLUTE AUTO 5.43 K/mm3 (1.96-9.15); NEUTROPHILS PERCENT AUTO 73 % (41-73); Platelet Count 301 K/mm3 (150-400); RDW Coefficient Variation 15.2 % (11.7-14.2); RDW Standard Deviation 48.8 fL (35.1-46.3); Red Blood Cell Count 3.34 M/mm3 (3.80-5.20); White Blood Cell Count 7.46 K/mm3 (4.00-11.30)
[2024-05-17 19:59] LABS: Bun/Creatinine Ratio 29.7 (12.0-20.0); Calcium, Blood 8.6 mg/dL (8.5-10.1); Creatinine, Blood 0.77 mg/dL (0.40-1.00); Potassium, Blood 3.5 mmol/L (3.5-5.5)
== END ==
LOC: LAB SHORT 17:32 → LAB 17:32
PROVIDERS: Nurse Practitioner Family
DX: D64.9 Anemia, unspecified (principal); N28.9 Disorder of kidney and ureter, unspecified
CPT/HCPCS: 80048; 85025

== ENCOUNTER 2024-05-22 02:27 | Day surgery (SDC) | payer MEDICARE, OTHER ==
[2024-05-22] MEDS ORDERED: Lidocaine HCl 4% Cream 5 GM ONE (10:47)
== END 2024-05-22 23:00 | disposition home or self-care (01) ==
LOC: WOUND 02:27
DX: T81.31XA Disruption of external operation (surgical) wound, not elsewhere classified, initial encounter (principal); I11.0 Hypertensive heart disease with heart failure; I50.9 Heart failure, unspecified; E11.40 Type 2 diabetes mellitus with diabetic neuropathy, unspecified
CPT/HCPCS: A9270

== ENCOUNTER → 2024-05-30 | Outpatient (CLI) | payer MEDICARE, OTHER ==
[2024-05-30 17:29] LABS: BASOPHILS ABSOLUTE AUTO 0.03 K/mm3 (0.00-0.23); BASOPHILS PERCENT AUTO 1 % (0-2); EOSINOPHILS ABSOLUTE AUTO 0.19 K/mm3 (0.00-0.68); EOSINOPHILS PERCENT AUTO 3 % (0-6); Hematocrit 28.6 % (33.0-51.0); Hemoglobin 8.9 g/dL (11.5-16.0); IMMATURE GRAN ABSOLUTE AUTO 0.02 K/mm3 (0.00-0.10); IMMATURE GRAN PERCENT AUTO 0 % (0-1); LYMPHOCYTES ABSOLUTE AUTO 1.32 K/mm3 (0.84-5.20); LYMPHOCYTES PERCENT AUTO 21 % (21-46); MONOCYTES ABSOLUTE AUTO 0.45 K/mm3 (0.16-1.47); MONOCYTES PERCENT AUTO 7 % (4-13); Mean Corpuscular HGB 26.7 pg (26.0-34.0); Mean Corpuscular HGB Conc 31.1 g/dL (31.5-36.5); Mean Corpuscular Volume 86 fL (80-100); NEUTROPHILS ABSOLUTE AUTO 4.31 K/mm3 (1.96-9.15); NEUTROPHILS PERCENT AUTO 68 % (41-73); Platelet Count 313 K/mm3 (150-400); RDW Coefficient Variation 14.6 % (11.7-14.2); RDW Standard Deviation 46.2 fL (35.1-46.3); Red Blood Cell Count 3.33 M/mm3 (3.80-5.20); White Blood Cell Count 6.32 K/mm3 (4.00-11.30)
[2024-05-30 17:52] LABS: Bun/Creatinine Ratio 25.6 (12.0-20.0); Creatinine, Blood 0.94 mg/dL (0.40-1.00); Potassium, Blood 3.5 mmol/L (3.5-5.5)
== END | disposition home or self-care (01) ==
LOC: LAB 16:36 → LAB SHORT 16:36
PROVIDERS: Nurse Practitioner Family
DX: I50.32 Chronic diastolic (congestive) heart failure (principal); D64.9 Anemia, unspecified
CPT/HCPCS: 80048; 83880; 85025

== ENCOUNTER 2024-06-11 00:09 | Day surgery (SDC) | payer MEDICARE, OTHER ==
[2024-06-11] MEDS ORDERED: Lidocaine HCl 4% Cream 5 GM ONE (13:43)
== END 2024-06-12 00:14 | disposition home or self-care (01) ==
LOC: WOUND 00:09
DX: T81.31XA Disruption of external operation (surgical) wound, not elsewhere classified, initial encounter (principal); E11.622 Type 2 diabetes mellitus with other skin ulcer; L97.322 Non-pressure chronic ulcer of left ankle with fat layer exposed; I11.0 Hypertensive heart disease with heart failure; I50.9 Heart failure, unspecified; Y83.8 Other surgical procedures as the cause of abnormal reaction of the patient, or of later complication, without mention of misadventure at the time of the procedure; D64.9 Anemia, unspecified
CPT/HCPCS: 36415; 82728; 83540; 83550; A9270